=== PATIENT | female | born 1975 | race Caucasian/White ===

== ENCOUNTER 2020-09-26 08:17 | Outpatient (CLI) | payer OTHER, SELFPAY ==
--- NOTE | ~2020-09-26 | MM_ITS ---
EXAMINATION: MM screening mimi BI w vlad HISTORY: Screening mammogram TECHNIQUE: Craniocaudal and mediolateral oblique 3-D tomosynthesis images were obtained and synthetic 2-D images were generated. CAD analysis was submitted and interpreted. COMPARISON: 09/12/2019, 08/26/2018, 08/21/2017 bilateral digital screening mammogram examinations BREAST PARENCHYMAL COMPOSITION: There are scattered areas of fibroglandular density. FINDINGS: There is no evidence of suspicious mass, calcification, or architectural distortion to sugg est malignancy in either breast. There has been no suspicious interval change. IMPRESSION: 1. No mammographic evidence of malignancy. 2. Recommend routine screening mammography in one year. BI-RADS Category 1: Negative Reviewed, dictated and finalized at location A. UFLAGE SPECIALIST
== END 2020-09-26 08:18 | disposition home or self-care (01) ==
LOC: ANHIMG 08:19
PROVIDERS: PCP Physician Assistant; Visit Provider Nurse Practitioner
DX: Z12.31 Encounter for screening mammogram for malignant neoplasm of breast (principal)
CPT/HCPCS: 77063; 77067

== ENCOUNTER 2021-11-07 13:45 | Outpatient (CLI) | payer OTHER, SELFPAY ==
--- NOTE | ~2021-11-07 | MM_ITS ---
EXAMINATION: MM diagnostic mimi BI w vlad HISTORY: Nonfocal left breast tenderness TECHNIQUE: Craniocaudal, mediolateral, and mediolateral oblique 3-D tomosynthesis images of the breas ts were performed and synthetic 2-D images were generated. CAD analysis was submitted and interpreted . COMPARISON: 09/26/2020, 09/12/2019, 08/26/2018 BREAST PARENCHYMAL COMPOSITION: The breasts are almost entirely fatty. FINDINGS: There is no evidence of suspicious mass, calcification, or architectural distortion in eit her breast to suggest malignancy. There has been no suspicious interval change. No mammographic corre late is identified for the patient's reported left breast pain. IMPRESSION: 1. No specific mammographic correlate is identified for the patient's reported left breast pain. Furt her evaluation at this time should be based on clinical assessment. Continued follow-up physical exam ination is recommended. 2. Recommend routine screening mammography in one year. BI-RADS Category 1: Negative Reviewed, dictated and finalized at location A. ECT MANAGEMENT ENGINEER IMPRESSION: 1. No specific mammographic correlate is identified for the patient's reported left breast pain. Further evaluation at this time should be based on clinical a ssessment. Continued follow-up physical examination is recommended. 2. Recommend routine screening mammography in one year. BI-RADS Category 1: Negative
== END 2021-11-07 13:46 | disposition home or self-care (01) ==
LOC: ANHIMG 13:47
PROVIDERS: PCP Physician Assistant; Visit Provider Nurse Practitioner
DX: N64.4 Mastodynia (principal)
CPT/HCPCS: 77062; 77066; G0279

== ENCOUNTER 2023-01-03 09:25 | Outpatient (CLI) | payer OTHER, SELFPAY ==
--- NOTE | ~2023-01-03 | MM_ITS ---
EXAMINATION: MM screening [facility] BI w vlad HISTORY: Screening mammogram TECHNIQUE: Craniocaudal and mediolateral oblique 3-D tomosynthesis images were obtained and synthetic 2-D images were generated. CAD analysis was submitted and interpreted. COMPARISON: 11/07/2021, 09/26/2020 BREAST PARENCHYMAL COMPOSITION: There are scattered areas of fibroglandular density. FINDINGS: No suspicious mass, calcification, or architectural distortion are identified in either jimena ast to suggest malignancy. There has been no suspicious interval change. IMPRESSION: 1. No mammographic evidence of malignancy. 2. Recommend routine screening mammography in one year. BI-RADS Category 1: Negative Reviewed, dictated and finalized at location A. TH AND FITNESS PROFESSOR
== END 2023-01-03 09:26 | disposition home or self-care (01) ==
LOC: ANHIMG 09:29
PROVIDERS: PCP Physician Assistant; Visit Provider Nurse Practitioner
DX: Z12.31 Encounter for screening mammogram for malignant neoplasm of breast (principal)
CPT/HCPCS: 77063; 77067

== ENCOUNTER 2023-08-30 11:09 | Emergency (ER) | payer OTHER, SELFPAY ==
--- NOTE | ~2023-08-30 | XR_ITS ---
XR lumbar spine 2-3V DATE: 08/30/2023 12:10 INDICATION: Fall. Low back pain. TECHNIQUE: AP, lateral, coned lateral lumbosacral views COMPARISON: None FINDINGS: There is mild loss of height and anterior wedging of L2 due to age indeterminate compressio n fracture. There is minimal dextroscoliosis of the lumbar spine. The lumbar vertebrae are normally aligned. No s pondylolisthesis. Lumbar levels interspaces appear relatively well preserved. The sacroiliac joints are intact. IMPRESSION: Mild L2 compression fracture of undetermined age Minimal lumbar dextroscoliosis Reviewed, dictated and finalized at location A.
[2023-08-30 11:23] VITALS: BP 141/70; PULSE 83; RESP 18; TEMP 36.3; O2SAT 98
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
== END 2023-08-30 12:44 | disposition home or self-care (01) ==
PROVIDERS: Emergency Provider Nurse Practitioner Family; PCP Physician Assistant
DX: S32.020A Wedge compression fracture of second lumbar vertebra, initial encounter for closed fracture (principal); W01.0XXA Fall on same level from slipping, tripping and stumbling without subsequent striking against object, initial encounter; E78.00 Pure hypercholesterolemia, unspecified; I10 Essential (primary) hypertension; E03.9 Hypothyroidism, unspecified
CPT/HCPCS: 72100; 99213; G0463

== ENCOUNTER 2023-10-02 16:20 | Outpatient (CLI) | payer OTHER, SELFPAY ==
--- NOTE | ~2023-10-02 | XR_ITS ---
EXAMINATION: XR sacrum coccyx min 2V DATE: 10/02/2023 16:42 INDICATION: Coccygeal pain TECHNIQUE: AP, angled AP and lateral views of the sacrum and coccyx were obtained. COMPARISON: None. FINDINGS: Sacral arches are intact with no evident sacral fracture. Mildly displaced fracture of the cephalad-m ost coccygeal segment on the lateral projection. There is mild bilateral hip and sacroiliac osteoarth ritis. There are few phleboliths in the pelvis. IMPRESSION: 1. Mildly displaced fracture at the cephalad-most coccygeal segment. Reviewed, dictated and finalized at location A. ANICAL LEAD
== END 2023-10-02 16:21 | disposition home or self-care (01) ==
PROVIDERS: PCP Physician Assistant; Visit Provider Physician Assistant
DX: S32.2XXA Fracture of coccyx, initial encounter for closed fracture (principal); X58.XXXA Exposure to other specified factors, initial encounter
CPT/HCPCS: 72220

== ENCOUNTER 2023-12-06 09:25 | Emergency (ER) | payer OTHER, SELFPAY ==
[2023-12-06 09:50] VITALS: BP 140/80; PULSE 82; RESP 18; TEMP 36.6; O2SAT 95
--- NOTE | 2023-12-06 10:35 | ED.GENADULT ---
HPI - General Adult General Chief complaint: Upper Respiratory Infection Stated complaint: covid + home test Time Seen by Provider: 12/06/23 10:35 Source: patient Mode of arrival: ambulatory Limitations: no limitations History of Present Illness HPI narrative: 48-year-old female reports to clinic today with symptoms of sore, scratchy throat, headache, runny nose, cough, and recent positive home a COVID test since Thursday. Patient reports not being able to smell or taste anything. Patient denies fevers, chills, body aches, diarrhea on Thursday but has not had diarrhea since. patient has not taken anything for her sore throat and states she isn't feeling better. Related Data Home Medications Medication Instructions Recorded Confirmed bupropion HCl 300 mg 24 hr tablet, mg PO 08/30/23 09/14/23 extended release buspirone 10 mg tablet mg 08/30/23 09/14/23 clonazepam 0.5 mg tablet mg 08/30/23 09/14/23 drospirenone 3 mg-ethinyl tablet 08/30/23 09/14/23 estradiol 0.02 mg tablet (Vestura (28)) duloxetine 60 mg capsule,delayed mg PO 08/30/23 09/14/23 release fenofibrate 160 mg tablet mg 08/30/23 09/14/23 levothyroxine 100 mcg tablet mcg 08/30/23 09/14/23 nystatin 100,000 unit/gram topical topical 08/30/23 09/14/23 cream propranolol 40 mg tablet mg 08/30/23 09/14/23 sumatriptan succinate 100 mg tablet mg PO 08/30/23 09/14/23 [id number] tablet 12/06/23 50 mg-325 mg-40 mg tablet Allergies Allergy/AdvReac Type Severity Reaction Status Date / Time meloxicam Allergy CANKER Verified 12/06/23 10:00 SORES MOXIFLOXACIN HCL Allergy SWELLING Uncoded 12/06/23 10:00 OF TONGUE Review of Systems Review of Systems: CONSTITUTIONAL: Denies fever, chills, or sweats. EYES: Denies visual changes, redness, or discharge. ENT: positive rhinorrhea, negative congestion, positive sore throat, and negative otalgia. positive loss of taste and smell. CARDIOVASCULAR: Denies chest pain, palpitations, or edema. RESPIRATORY: positive cough and negative dyspnea. GASTROINTESTINAL: Denies abdominal pain, nausea, vomiting, positive diarrhea on Thursday but not since. GENITOURINARY: Denies dysuria or hematuria. SKIN: Denies rash or itching. MUSCULOSKELETAL: Denies back pain, joint pain, or myalgia. NEUROLOGIC: positive headache, negative numbness, or weakness. PSYCHIATRIC: Denies anxiety or depression. [facility] Past Medical History Medical History Anxiety Depression Fracture of lumbar spine Fractured coccyx Hypercholesteremia Hypertension Hypothyroidism Migraines Sleep apnea Social History Social History Smoking status: Never smoker Lack of Transportation: No Lack of Food: Sometimes True Current Housing: I Have Housing Concerned About Future Housing: No Difficulty Paying Gas/Electric Bills: YES Difficulty Paying for Meds: No Currently Unemployed: No Education: High School Diploma/GED Difficulty w/ Childcare or Family Care: No Comments At the time of my signature I agree with nursing past medical history, surgical, social, and family history. There is no relevant family history pertinent to the presenting complaint. Exam Narrative: GENERAL: ill-appearing, well-nourished, and in no acute distress. HEAD: Normocephalic, atraumatic. EYES: PERRLA and EOMI. conjunctiva are free of erythema, edema, and drainage. ENT: Nares clear, positive clear rhinorrhea and epistaxis. Mucous membranes moist. turbinates of the bilateral nares are boggy and edematous. posterior oropharynx has erythema, tonsils +2 without exudate. NECK: Supple. No lymphadenopathy CHEST: Clear to auscultation. No respiratory distress. HEART: Regular rate and rhythm. No murmur heard. Normal peripheral pulses. ABDOMEN: Soft, nontender, nondistended, normal active bowel sounds. EXTREMITIES: Normal ra
== END 2023-12-06 11:02 | disposition home or self-care (01) ==
PROVIDERS: Emergency Provider Nurse Practitioner Family; PCP Physician Assistant
DX: U07.1 COVID-19 (principal); E78.00 Pure hypercholesterolemia, unspecified; I10 Essential (primary) hypertension; E03.9 Hypothyroidism, unspecified
CPT/HCPCS: 99213; G0463

== ENCOUNTER 2024-01-12 10:51 | Outpatient (CLI) | payer OTHER, SELFPAY ==
--- NOTE | ~2024-01-12 | MR_ITS ---
EXAMINATION: MR brain/brain stem wo con DATE: 01/12/2024 11:36 INDICATION: Intractable chronic migraine without aura and without status migrainosus. TECHNIQUE: Magnetic resonance imaging (MRI) of the brain and brainstem was performed without intraven ous contrast. COMPARISON: Brain MRI 06/20/2009 FINDINGS: There is no intracranial hemorrhage, acute infarction, or abnormal intracranial mass lesion . There are scattered areas of nonspecific increased T2-weighted signal intensity in the cerebral whi te matter. The ventricles are normal in size. There are likely changes of ocular lens replacement bradley geries. The mastoid air cells are normal. There is mild mucosal thickening in left maxillary sinus. IMPRESSION: 1. Mild nonspecific cerebral white matter disease, which likely represents chronic small vessel ische estrella disease. Reviewed, dictated and finalized at location A. IMPRESSION: 1. 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
== END 2024-01-12 10:52 | disposition home or self-care (01) ==
LOC: ANHIMG 10:53
PROVIDERS: PCP Physician Assistant
DX: G43.719 Chronic migraine without aura, intractable, without status migrainosus (principal); F80.81 Childhood onset fluency disorder; R90.82 White matter disease, unspecified
CPT/HCPCS: 70551

== ENCOUNTER 2024-03-22 16:32 | Outpatient (CLI) | payer OTHER, SELFPAY ==
--- NOTE | ~2024-03-22 | MM_ITS ---
EXAMINATION: MM screening mimi BI w vlad HISTORY: Screening TECHNIQUE: Craniocaudal and mediolateral oblique 3-D tomosynthesis images were obtained and synthetic 2-D images were generated. CAD analysis was submitted and interpreted. COMPARISON: Comparison to multiple prior studies sequentially, with oldest reviewed study dated 08/03. BREAST PARENCHYMAL COMPOSITION: The breasts are almost entirely fatty. FINDINGS: There is no evidence of suspicious mass, calcification, or architectural distortion to sugg est malignancy in either breast. There has been no suspicious interval change. IMPRESSION: 1. No mammographic evidence of malignancy. 2. Recommend routine screening mammography in one year. BI-RADS Category 1: Negative Reviewed, dictated and finalized at location A.
== END 2024-03-22 16:33 | disposition home or self-care (01) ==
LOC: ANHIMG 16:33
PROVIDERS: PCP Physician Assistant; Visit Provider Obstetrics & Gynecology Gynecology
DX: Z12.31 Encounter for screening mammogram for malignant neoplasm of breast (principal)
CPT/HCPCS: 77063; 77067

== ENCOUNTER 2024-09-07 09:29 | Outpatient (CLI) | payer OTHER, SELFPAY ==
[2024-09-26 13:35] VITALS: BMI 37.8
--- NOTE | 2024-09-26 13:35 | WPDSLEEPSTUD ---
Sleep Study Date of Study: 09/07/24 Ordering Provider: June Walker, VLADIMIR Interpreting Physician: Gogo Johnson DO Sleep Study Type: Split Polysomnogram Height: 1.57 m Weight: 93.894 kg Body Mass Index: 37.8 Neck Circumference (inches): 17 [place]: 9 Reason for Sleep Study Previously diagnosed sleep apnea. Her CPAP broke 5 years ago and hasn't had once since. Sleep History The patient is a 49-year-old female with previously diagnosed sleep apnea that had a sleep study ordered by the pulmonary group for evaluation of sleep apnea. The patient denies awakening from sleep short of breath. She frequently awakens at night with heartburn, belching or cough. She frequently snores and 8 is frequently loud enough that others complain. She occasionally has trouble sleeping when she has a cold. She denies waking up gasping for air throughout the night. She denies having breathing problems at night observed by herself or others. She occasionally sweats excessively at night. She denies having heart palpitations or irregular heartbeats during the night. She constantly falls asleep during the day but never while driving. She denies cataplexy and hypnagogic/ hypnopompic hallucinations. She denies having trouble at school or work due to sleepiness. She occasionally feels unable to move while waking up or falling asleep. She occasionally feels afraid of going to sleep. She occasionally has nightmares. She frequently remembers her dreams. She occasionally has thoughts racing through her mind. She frequently feels sad or depressed. She constantly has anxiety. She occasionally has muscular tension. She denies noticing parts of her body jerk. She denies kicking during the night. She denies having crawling and aching feelings in her legs and denies having leg pain during the night. She denies grinding her teeth during sleep and denies awakening with morning jaw pain. She is occasionally bothered by pain during the day and occasionally awakened by pain during the night. She occasionally wakes up feeling stiff in the morning. She occasionally wakes up with sore or achy muscles. She occasionally wakes up with pain in the neck, spine or other joints. She goes to bed between 830-9 p.m. on weekdays and at 10:00 p.m. on the weekends. It takes her 30 minutes to fall asleep. She wakes up 3-4 times throughout the night to urinate and is able to fall back asleep immediately. She wakes up at 4:45 a.m. on weekdays and at noon on the weekends. She will stay in bed for most of the day if she is not working. She currently lives with her and 2 children. She works a split shift. She denies consuming any caffeinated beverages within 2 hours of bedtime. She denies engaging in physical exercise before bedtime. She denies reading watching television before falling asleep. She will take naps in afternoon or the evening but they are not refreshing. She consumes 1-2 caffeinated beverages per day. She denies tobacco, alcohol and recreational drug use. [facility] Past Medical History Medical History Anxiety Depression Fracture of lumbar spine Fractured coccyx Hypercholesteremia Hypertension Hypothyroidism Migraines Sleep apnea Social History Social History Smoking status: Never smoker Lack of Transportation: No Lack of Food: Sometimes True Current Housing: I Have Housing Concerned About Future Housing: No Difficulty Paying Gas/Electric Bills: YES Difficulty Paying for Meds: No Currently Unemployed: No Education: High School Diploma/GED Difficulty w/ Childcare or Family Care: No Medications Home Medications Medication Instructions Recorded Confirmed Type bupropion HCl 300 mg 24 hr tablet, mg PO 08/30/23 09/14/23 History extended release buspirone 10 mg tablet mg 08/30/23 09/14/23 History clonazepam 0.5 mg tablet mg 08/30/23 09/14/23 History drospirenone 3 mg-ethinyl tablet 08/30/23 09/14/23 History estradiol 0.02 mg tablet (Vestura (28)) duloxetine 60 mg capsule,delayed mg PO 08/30/23 09/14/23 History release fenofibrate 160 mg tablet mg 08/30/23 09/14/23 History levothyroxine 100 mcg tablet mcg 08/30/23 09/14/23 History nystatin 100,000 unit/gram topical topical 08/30/23 09/14/23 History cream propranolol 40 mg tablet mg 08/30/23 09/14/23 History sumatriptan succinate 100 mg tablet mg PO 08/30/23 09/14/23 History rwcuvpejxp-yzzggqpkgkcpz-cqrerani tablet 12/06/23 History 50 mg-325 mg-40 mg tablet nirmatrelvir 300 mg (150 mg See Rx Instructions PO .COMPLEX 12/06/23 Rx x2)-ritonavir 100 mg tablet,dose #30 ea pack (Paxlovid) Sleep Procedure A full night split study using the [employer] multi-channel system recorded the standard physiologic parameters including EEG, EOG, submentalis EMG, anterior tibialis EMG, EKG, body position, nasal and oral airflow using nasal pressure sensor and thermistor.? Respiratory parameters of chest and abdominal movements were recorded with Respiratory Inductance Plethysmography belts. Oxygen saturation was recorded by pulse oximetry. Video monitoring was also performed. Sleep stages, periodic limb movements, and EEG arousals were scored in 30 second epochs according to the criteria of the AASM Scoring Manual. The Apnea-Hypopnea Index was calculated using CMS guidelines for definition of hypopnea with 4% O2 desaturations while scoring respiratory events. Sleep Architecture During the diagnostic portion of the study, the total recording time was 188.1 minutes. The total sleep time was 142.0 minutes. Sleep latency was 22.6 minutes.? REM sleep was not achieved during this portion of the study. Sleep Efficiency was 75.5%. The patient had 25 awakenings for an awakening index of 10.6. Wake after sleep onset time was 23.5 minutes. The patient spent 29.0 minutes, 20.4% of total sleep time in Stage N1. The patient spent 113.0 minutes, 79.6% in Stage N2. The patient spent 0.0 minutes, 0.0% in Stage N3. The patient spent 0.0 minutes, 0.0% in Stage REM sleep. At 12:11:59 AM the patient was placed on PAP treatment and was titrated at pressures ranging from 5 cm H20 up to 9 cm H20. During the treatment portion of the study, the total recording time was 259.0 minutes.? The total sleep time was 147.0 minutes. Sleep latency was 39.5 minutes. REM latency was 150.5 minutes. Sleep Efficiency was 56.8%. Wake after Sleep Onset time was 72.5 minutes. The patient spent 31.0 minutes, 21.1% of total sleep time in Stage N1. The patient spent 107.0 minutes, 72.8% in Stage N2. The patient spent 0.0 minutes, 0.0% in Stage N3. The patient spent 9.0 minutes, 6.1% in Stage REM. Respiratory Analysis During the diagnostic portion of the study, the patient had 38 hypopneas and 2 obstructive apneas for an overall Apnea Hypopnea Index of 16.9 events per hour. The REM Apnea Hypopnea Index was 0. The NREM Apnea Hypopnea Index was 16.9. The patient had a Central Apnea Hypopnea Index of 0. There was no evidence of Marlo-Maria Respirations. During the treatment portion of the study, the patient had 7 hypopneas, 2 obstructive apneas and 1 mixed apnea for an overall Apnea Hypopnea Index of 4.1 events per hour. The REM Apnea Hypopnea Index was 0. The NREM Apnea Hypopnea Index was 4.3. The patient had a Central Apnea Hypopnea Index of 0. There was no evidence of Marlo-Maria Respirations. The patient was started on CPAP 5 cm H2O and titrated to CPAP 9 cm H2O due to obstructive apneas and hypopneas. The patient was able to fall asleep starting on CPAP 5 cm H2O. The patient was able to achieve REM starting on CPAP 9 cm H2O. The patient was able to achieve a residual AHI less than 5 with both NREM and REM sleep in the supine position on the final pressure setting. On CPAP 9 cm H2O, the patient spent 66.5 minutes in NREM and 9 minutes in REM with 1 obstructive apnea and 1 hypopnea, resulting in an AHI of 1.6. The patient had a sleep efficiency of 80.3% on this pressure setting. Arousals During the diagnostic portion of the study, there were a total of 93 arousals for an arousal index of 39.3.? There were 19 respiratory arousals for an index of 8.0. There were 13 periodic limb movement arousals for an index of 5.5.? There were 10 isolated limb movement arousals for an index of 4.2. There were 51 spontaneous arousals for an index of 21.5. During the treatment portion of the study, there were a total of 70 arousals for an index of 28.6.? There were 4 respiratory arousals for an index of 1.6. There were 1 periodic limb movement arousals for an index of 0.4.? There were 11 isolated limb movement arousals for an index of 4.5. There were 54 spontaneous arousals for an index of 22.0. Periodic Limb Movements During the diagnostic portion of the study, the patient had 13 isolated limb movements with an index of 5.5. The patient had 60 periodic limb movements with an index of 25.4. The patient had a total of 73 limb movements with a total limb movement index of 30.8. During the treatment portion of the study, the patient had 12 isolated limb movements with an index of 4.9. The patient had 19 periodic limb movements with an index of 7.8. The patient had a total of 31 limb movements with a total limb movement index of 12.7. Oximetry Data During the diagnostic portion of the study, the patient had an average oxygen saturation of 93.6% in wake with a minimum oxygen saturation of 90% and a maximum oxygen saturation of 96%. The patient had an average oxygen saturation of 93.2% in sleep with a minimum oxygen saturation of 87.0% and a maximum oxygen saturation of 96.0%. The patient had 79 oxygen desaturations resulting in an Oxygen Desaturation Index of 33.4. The patient spent 0.6 minutes, 0.3% of total sleep time with an oxygen saturation less than 88%. During the treatment portion of the study, the patient had an average oxygen saturation of 94.8% in wake with a minimum oxygen saturation of 84.0% and a maximum oxygen saturation of 99.0%. The patient had an average oxygen saturation of 95.3% in sleep with a minimum oxygen saturation of 90.0% and a maximum oxygen saturation of 99.0%. The patient had 20 oxygen desaturations resulting in an Oxygen Desaturation Index of 8.2. The patient spent 0.3 minutes, 0.1% of total sleep time with an oxygen saturation less than 88%. Snoring Profile Mild snoring was present in the baseline portion of the study. The snoring resolved once the patient was titrated to 7 cm H2O. Cardiac Profile The EKG lead showed normal sinus rhythm. No arrhythmias or PVCs were seen. During the diagnostic portion of the study, the average pulse rate was 75.5 bpm.? The minimum pulse rate was 69.0 bpm. The maximum pulse rate was 85.0 bpm. During the treatment portion of the study, the average pulse rate was 74.2 bpm.? The minimum pulse rate was 67.0 bpm. The maximum pulse rate was 88.0 bpm. EEG Profile No signs of seizure activity seen. Assessment and Plan Assessment and Plan (1) DEB (obstructive sleep apnea): Code(s): G47.33 - Obstructive sleep apnea (adult) (pediatric) Status: Acute Assessment and Plan: In the baseline portion of the study, the patient had an overall AHI of 16.9 with desaturation down to 87%. This is consistent with moderate sleep apnea. The patient was started on CPAP 5 cm H2O and titrated to CPAP 9 cm H2O due to obstructive apneas and hypopneas. The patient's sleep apnea resolved on the final pressure. I recommend that the patient be prescribed CPAP 9 cm H2O, size small Resmed N30i mask, CPAP filters/tubing and heated humidity. This should be used with all episodes of sleep.? Compliance should be reviewed within 31-90 days of starting therapy for usage greater than 4 hours per night greater than 70% of the nights. The patient should be asked about symptoms such as?excessive daytime sleepiness, quality of sleep, decreased nocturia, increased?mental functioning such as memory, mood, and concentration. Data The data obtained during this sleep study is adequate for interpretation. Certification This sleep study has been reviewed by a board certified sleep medicine physician.
== END 2024-09-08 05:06 | disposition home or self-care (01) ==
PROVIDERS: PCP Physician Assistant; Visit Provider Physician Assistant
DX: G47.33 Obstructive sleep apnea (adult) (pediatric) (principal)
CPT/HCPCS: 95811

== ENCOUNTER 2024-11-14 14:48 | Outpatient (CLI) | payer OTHER, SELFPAY ==
--- NOTE | ~2024-11-14 | DEXA_ITS ---
Bone Density Report Name: RAFAEL COLEMAN Age: 49 Sex: Female Ethnicity: White Date of : 1975 Indication: postmenopausal; screening for osteoporosis; Referring Provider: ROMEO, ARTEM Study: Bone densitometry was performed. Exam Date: November 14, 2024 Accession number: [id number] Bone Density: Region BMD T-score Z-score Classification AP Spine(L1-L4) 0.853 -1.8 -1.0 Osteopenia Femoral Neck (Left) 0.543 -2.8 -2.0 Osteoporosis Total Hip (Left) 0.926 -0.1 0.4 Normal Femoral Neck (Right) 0.679 -1.5 -0.8 Osteopenia Total Hip (Right) 0.943 0.0 0.5 Normal Total Hip Mean 0.934 -0.1 0.5 Normal World Health Organization criteria for BMD impression classify patients as: Normal (T-score at or above -1.0), Osteopenia (T-score between -1.0 and -2.5), or Osteoporosis (T-score at or below -2.5). 10-year Fracture Risk: FRAX not reported because: Some T-score for Spine Total or Hip Total or Femoral Neck at or below -2.5 Clinical Information Provided by Patient: Patient maximum height was 62.0 Menopause Age: 49 No regular weight bearing exercise Does not regularly consume dairy products Drinks caffeinated beverages Onset of menses at age 11 Number of children 0 Impression: The patient has osteoporosis, based on the Left Femoral Neck T-score. Discussion: HIGH RISK OF FRACTURE. BONE DENSITY IS UNDESIRABLY LOW AT ONE OR MORE SKELETAL SITES, CONSISTENT WITH OSTEOPOROSIS. ALSO, BONE DENSITY IS LOWER THAN EXPECTED FOR AGE AND SEX AT ONE OR MORE SKELETAL SITES; RECOMMEND A DILIGENT SEARCH FOR SECONDARY CAUSES OF BONE LOSS. This patient's lowest T-score meets the World Health Organization's (WHO) criteria for osteoporosis at one or more sites (T-score -2.5 or below). In untreated patients, the risk of osteoporotic fracture increases approximately two-fold for each 1.0 SD decrease in T-score. Low bone density is not the only risk factor for fracture; also consider factors such as patient's age, frailty or poor health, risk of falling, risk of injury, previous osteoporotic fracture, family history of osteoporosis, cigarette smoking, low body weight, etc. Not everyone with low bone mineral density has osteoporosis; osteomalacia and other metabolic bone disorders should also be considered. Patients who have osteoporosis should be evaluated for specific diseases and conditions (secondary causes) that may cause or contribute to bone loss. The [place] [employer]ocrinologists (AACE) and National Osteoporosis Foundation (NOF) recommend pharmacologic intervention for all postmenopausal women whose T-score is in this range. Also, this patient's bone mineral density is below the range considered normal for healthy age-, sex-, and race-matched controls at least one site (Z-score -2.0 or below). This warrants careful evaluation for diseases and conditions that may contribute to accelerated bone loss. The patient should follow a healthful lifestyle (good nutrition with adequate calcium and vitamin D, and appropriate weight-bearing exercise). Follow-Up: Consider a repeat BMD and Vertebral Fracture Assessment (VFA) exam in 2 years or sooner if medically necessary, to reassess this patient's status. Reported by: KEMI on 11/14/2024 3:20:00 PM. Reviewed, dictated and finalized at location ABonita DUNN
== END 2024-11-14 14:49 | disposition home or self-care (01) ==
LOC: ANHIMG 14:50
PROVIDERS: PCP Physician Assistant; Visit Provider Physician Assistant
DX: Z78.0 Asymptomatic menopausal state (principal); M85.88 Other specified disorders of bone density and structure, other site; M81.0 Age-related osteoporosis without current pathological fracture; M85.851 Other specified disorders of bone density and structure, right thigh
CPT/HCPCS: 77080

== ENCOUNTER 2025-05-13 18:54 | Emergency (ER) | payer OTHER, SELFPAY ==
--- NOTE | ~2025-05-13 | XR_ITS ---
XR ankle RT min 3V Ordering provider: Veronique Dang NP History: . fall today/lateral pain . Comparison: None. FINDINGS: BONES: No acute fracture or dislocation. JOINT SPACES: Normal. SOFT TISSUES: Normal. Calcaneal spur. IMPRESSION: No acute osseous abnormality of the right ankle. Reviewed, dictated and finalized at location A.
--- OUTSIDE RECORDS SUMMARY | 2025-05-13 18:57 | XMS_ITS | Clinical Summary ---
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 Role Phone Unavailable Primary Care Provider Unavailabl e Social History Tobacco Use Types Packs/Day Years Used Date Smoking Tobacco: Never Assessed Comments Unknown Sex and Gender Information Value Date Recorded Sex Assigned at Not on file Legal Sex Female 4:44 PM CDT Gender Identity Not on file Sexual Orientation Not on file Plan of Treatment Health Maintenance Due Date Last Done Comments Cervical Cancer Screening Pa p Smear (Age 30 to 64) Every 3 Years 1974 Colorectal Cancer Screening Colonoscopy (10 Years) 1974 Annual Physical 1977 Hepatitis C 1992 DTaP, Tdap and Td Vaccines ( 1 - Tdap) 1993 Hepatitis B Vaccines (1 of 3 - 19+ 3-dose series) 1993 Cervical Cancer Screening Pa p with HPV Testing (Age 30 to 64) Every 5 Years 2004 Cervical Cancer Screening with HPV 2004 Mammogram Screening 2014 Pneumococcal Vaccine: 50+ Ye ars (1 of 1 - PCV) 2024 Zoster Vaccines (1 of 2) 2024 COVID-19 Vaccine ( - 2023-2 5 season) 2024 Meningococcal B Vaccine Aged Out No l onger eligible based on patient's age to complete this topic Meningococcal Vaccine Aged Out No siria elaine eligible based on patient's age to complete this topic RSV Immunizations Under 20 Months Aged Out No longer eligible based on patient's age to complete this topic
--- OUTSIDE RECORDS SUMMARY | 2025-05-13 18:57 | XMS_ITS | Referral Summary ---
Author Organization [facility] Address [address] [place] [address] Care Team Providers Care Junior Accountant Name Role Phone Tigre Sy MD Primary Care Provider [phone] Encounters Date Type Department Care Team Description 03/13/2025 Telephone [facility] [address] [place] [address] [address] [place] [address] Cherelle Funez NP 03/09/2025 1:00 PM CDT [facility] [address] [facility] [address] [place] [address] Katelynn Hurd MD Intractable chronic migraine without aura and without status migrainosus from Last 3 Months Allergies Active Allergy Reactions Criticality Noted Date Comments Meloxicam Moxifloxacin Medications selenium sulfide 2.5 % lotion WET HAIR AND LATHER INTO SCALP UP TO ONCE DAILY. 01/12/20 20 Active Gianvi, 28, 3-0.02 mg per tablet 02/02/20 20 Active buPROPion XL (WELLBUTRIN XL) 300 mg 24 hr tabletIndications: Generalized anxiety disorder,Mild episode of recurrent major depressive disorder Take 1 tablet (300 mg total) by mouth every morning 90 tablet 1 02/06/20 20 Active clonazePAM (KlonoPIN) 0.5 mg tabletIndications: Generalized anxiety disorder Take 1 tablet (0.5 mg total) by mouth daily 90 tablet 1 02/06/20 20 Active fenofibrate (TRIGLIDE) 160 mg tabletIndications: Hyperlipidemia, unspecified hyperlipidemia type Take 1 tablet (160 mg total) by mouth daily 90 tablet 1 02/06/20 20 Active levothyroxine (SYNTHROID) 100 mcg tabletIndications: Acquired hypothyroidism Take 1 tablet (100 mcg total) by mouth daily 90 tablet 1 02/06/20 20 Active propranoloL (INDERAL) 40 mg tabletIndications: Chronic migraine without aura without status migrainosus, not intractable Take 1 tablet (40 mg total) by mouth 2 (two) times a day 180 tablet 1 02/19/[address] (CYMBALTA) 60 mg capsuleIndications :Generalized anxiety disorder,Mild episode of recurrent major depressive disorder TAKE 1 CAPSULE BY MOUTH EVERY DAY 90 capsule 03/25/20 21 Active onabotulinumtoxin A (Botox) 100 unit recon soln Inject 155 Units into the muscle as instructed every 3 (three) months 11/13/19 24 Active oxyBUTYnin (DITROPAN) 5 mg tablet Take 0.5 tablets (2.5 mg total) by mouth 2 (two) times a day 01/02/20 24 Active butalbital-acetami nophen-caffeine (ESGIC) 50-325-40 mg per tablet Take 1 tablet by mouth every 6 (six) hours as needed for headaches (No additional Tylenol or acetaminophen with this medication.) 8 tablet 3 07/07/20 24 Active fluconazole (DIFLUCAN) 150 mg tabletIndications: Intractable chronic migraine without aura and without status migrainosus Take 1 tablet (150 mg total) by mouth every other day 05/26/20 24 Active SUMAtriptan (IMITREX) 50 mg tabletIndications: Intractable chronic migraine without aura and without status migrainosus Take 1 tablet (50 mg total) by mouth as needed for migraine Can repeat in 2 hours if needed. Maximum of 2 tablets in 24 hours. 9 tablet 11 09/02/20 24 Active alendronate (FOSAMAX) 70 mg tablet Take 1 tablet (70 mg total) by mouth once a week 12/05/19 25 Active busPIRone (BUSPAR) 10 mg tablet Take 1 tablet (10 mg total) by mouth 2 (two) times a day 11/30/19 25 Active Active Problems Problem Noted Date Diagnosed Date Upper respiratory infection 02/17/2024 Pain in the coccyx 10/01/2023 Compression fracture of lumbar vertebra 09/02/20 23 Aphthous ulcer of mouth 10/23/2022 Herpes labialis 10/23/2022 Nonspecific syndrome suggestive of viral illness 10/20/2022 Sore throat 10/20/2022 Candidiasis of vagina 07/14/2022 Cough 02/24/2022 Hyperglycemia 02/20/2022 Chronic migraine without aur a without status migrainosus, not intractable 02/20/2022 Overview (02/17/2024): Please see my note from 02/17/2024 for a full headache history Assessment & Plan (02/17/2024 12:55 PM CDT): Assessment Chronic migraine without aura The patient has longstanding history of chronic migraine without aura. She has had a very good therapeutic response to Botox for chronic migraine and wishes to have this done here. Her last treatment was on 11/13/2023. She is due for her next treatment. Plan Continue Botox for chronic migraine. We have given her samples of Ubrelvy in the past and she has had benefit from this in terms of acute treatment for migraine. We will try to get this approved for her in the future. Overactive bladder 02/20/2022 Skin lesion 02/20/2022 Cobalamin deficiency 02/20/2022 Folic acid deficiency 02/20/2022 Candidiasis of skin 12/09/2021 Acute maxillary sinusitis 06/10/2021 Anterior knee pain 06/10/2021 Anxiety 06/10/2021 Atypical facial pain 06/10/2021 Benign essential hypertension 06/10/2021 Carpal tunnel syndrome 06/10/2021 Deviated nasal septum 06/10/2021 Hypothyroidism 06/10/2021 Lateral epicondylitis 06/10/2021 Loss of hair 06/10/2021 Major depressive disorder 06/10/2021 Melanocytic nevus 06/10/2021 Mixed hyperlipidemia 06/10/2021 Obstructive sleep apnea syndrome 06/10/2021 Pure hyperglyceridemia 06/10/2021 Tenderness over maxillary sinus 06/10/2021 Temporomandibular joint disorder 06/10/2021 Pain in limb 03/19/2020 Shortness of breath 04/30/2017 Tachycardia 04/30/2017 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 Melanocytic nevi of trunk 03/23/2017 Other seborrheic dermatitis 06/17/2016 Monocular diplopia 04/02/2016 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 Never 03/09/2025 Q2: How many drinks containi ng alcohol do you have on a typical day when you are drinking? Patient does not drink Q3: How often do you have si x or more drinks on one occasion? 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 Gender Identity Female 02/06/2020 9:55 AM CDT Sexual Orientation Straight 02/06/2020 9: 55 AM CDT Last Filed Vital Signs Vital Sign Reading Time Taken Comments Blood Pressure 136/76 03/09/2025 1:06 PM CDT Pulse 79 03/09/2025 1:06 PM CDT Temperature 36.7 C (98.1 F) 10/21/2013 12:15 PM OUTBOARD MOTORS EXPERIMENTAL MECHANIC Respiratory Rate 18 09/02/2024 11:37 AM CDT Oxygen Saturation 95% 03/09/2025 1:06 PM CDT Inhaled Oxygen Concentration - - Weight 95.7 kg (211 lb) 03/09/2025 1:06 PM CDT Height 157.5 cm (5' 2) 03/09/2025 1:06 PM CDT Body Mass Index 38.59 03/09/2025 1:06 PM CDT Plan of Treatment Not on file Procedures Procedure Name Priority Date/Time Associated Diagnosis Comments BOTOX INJECTION Routine 03/09/2025 1:00 PM CDT Intractable chronic migraine without aura and without status migrainosus from Last 3 Months Results * Botox Injection (03/09/2025 1:00 PM CDT) Narrative Michelle Toro - 03/09/2025 1:00 PM CDT Michelle Toro 03/10/2025 8:23 AM Botox Injection Performed by: Katelynn Hurd MD Authorized by: Katelynn Hurd MD [place] Protocol: Procedure Details - Botox Injection: Procedure Details: See Botox flow sheet for details on injection sites and amounts. us Katelynn Hurd MD IN CLINIC/BEDSIDE ORDERAB LES Final Result from Last 3 Months Insurance [facility] Care Teams Junior Accountant Relationship Specialty Start Date End Date Tigre Sy MD PCP - General Family Medicine 02/09/20
--- OUTSIDE RECORDS SUMMARY | 2025-05-13 18:57 | XMS_ITS | Clinical Summary ---
Author Organization [facility] Address [address] [facility] [place] [address] Care Team Providers Care Green Feed Attendant Name Role Phone June Vo Primary Care Pr ovider Source Comments [facility] [employer],non-owned Affiliates and Associated Physician Practices is amultiple site organization consisting of ambulatory clinics and hospital sitesin [place], [place], [place] and [place]. This disclosure is being madepursuant to the Care Everywhere program and may not contain all information available regarding this patient. Last updated 18.[facility] [employer] Allergies Active Allergy Reactions Criticality Noted Date Comments Meloxicam Other Low 09/18/2015 Canker sores Moxifloxacin Anaphylaxis High 09/18/2015 Medications * Be aware that medications may not be up to date on this document. Alwaysverify current medications with the patient. buPROPion XL 24hr (WELLBUTRIN-XL) 300 MG tablet Take 1 (one) tablet by mouth once daily 8 Active DULoxetine (CYMBALTA) 60 MG capsule Take 1 (one) capsule by mouth once daily 8 Active fenofibrate (LOFIBRA) 160 MG tablet Take 1 (one) tablet by mouth once daily 8 Active drospirenone-et hinyl estradiol-levom efolate (BEYAZ) 3-0.02-0.451 MG tablet 5 Active levothyroxine (SYNTHROID) 100 MCG tablet Take 1 (one) tablet by mouth once daily 11 8 Active propranolol (INDERAL) 40 MG tabletIndicatio ns:Intractable chronic migraine without aura and without status migrainosus Take 1 tablet by mouth 2 times daily 180 tablet 3 0 Active selenium sulfide (SELSUN) 2.5 % lotion WET HAIR AND LATHER INTO SCALP UP TO ONCE DAILY. 120 mL 11 0 Active busPIRone (BUSPAR) 10 MG tablet Take 1 (one) tablet by mouth 2 times daily Active vitamin D, ergocalciferol, (Drisdol) 1.25 MG (66767 UT) capsule 2 Active folic acid (Folvite) 1 MG tablet 2 Active gabapentin (Neurontin) 300 MG capsuleIndicati ons:Rash and other nonspecific skin eruption Take 1 (one) capsule by mouth 3 times daily 90 capsule 2 2 Active Additional Information Patient not taking.Reported on 11/13/2023 diazePAM (Valium) 5 MG tablet Take 1 (one) tablet by mouth as needed (30 min. prior to MRI, can repeat X1 if needed, have someone drive patient home afterwards.) 2 tablet 3 Active onabotulinumtox in A (BOTOX) 100 units injectionIndica tions:Migraine Inject 155 (one hundred fifty five) Units into muscle Every 90 days Reasons: Migraine Headache 2 Each 1 4 Active SUMAtriptan (Imitrex) 100 MG tabletIndicatio ns:Intractable chronic migraine without aura and without status migrainosus Take 1 (one) tablet by mouth as needed for Migraine (take at onset of headache, can repeat in 2 hours, max of 2 per day) 9 tablet 11 4 Active butalbital-acet aminophen-caffe ine (Fioricet) 50-325-40 MG tabletIndicatio ns:Intractable chronic migraine without aura and without status migrainosus Take 1 (one) tablet by mouth every 6 hours as needed for Headache (no additional tylenol or acetmenophen with this medicaiton) 15 tablet 5 4 Active Active Problems Problem Noted Date Diagnosed Date Pain in the coccyx 10/01/2023 11/13/2023 Compression fracture of lumbar vertebra 09/02/20 23 11/13/2023 Aphthous ulcer of mouth 10/23/2022 05/08/20 Herpes labialis 10/23/2022 05/08/2023 Nonspecific syndrome suggestive of viral illness 10/20/2022 05/08/2023 Sore throat 10/20/2022 05/08/2023 Candidiasis of vagina 07/14/2022 Hyperglycemia 02/20/2022 Migraine 02/20/2022 Overactive bladder 02/20/2022 Encounter for long-term (current) use of insulin 12/26/2021 Candidiasis of skin 12/10/2021 Vitamin D deficiency 11/29/2021 Acute maxillary sinusitis 06/10/2021 Anterior knee pain 06/10/2021 Anxiety 06/10/2021 Atypical facial pain 06/10/2021 Benign essential hypertension 06/10/2021 Carpal tunnel syndrome 06/10/2021 Closed fracture of distal phalanx of toe 021 Deviated nasal septum 06/10/2021 Hypothyroidism 06/10/2021 Lateral epicondylitis 06/10/2021 Loss of hair 06/10/2021 Major depressive disorder, single episode, moder ate 06/10/2021 Melanocytic nevus 06/10/2021 Mixed hyperlipidemia 06/10/2021 Obstructive sleep apnea syndrome 06/10/2021 Pure hyperglyceridemia 06/10/2021 Temporomandibular joint disorder 06/10/2021 Tenderness over frontal sinus 06/10/2021 Vitamin B12 deficiency (non anemic) 06/10/2021 Pain in limb 03/19/2020 Shortness of breath 04/30/2017 Tachycardia 04/30/2017 Melanocytic nevi of trunk 03/23/2017 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 (F LUZONE; FLULAVAL; FLUARIX; AFLURIA QUADRIVALENT; 6MO+), 0.5 ML (IIV4) 08/15/2022,08/16/2021,08/13/2020,2018,08/17/2018,08/05/2016,08/07/2015 TDAP (7yrs+) 07/20/2014 Family History Medical History Relation Name Comments Hypertension Maternal Grandfather Allergy (Severe) Neg Hx CVA Neg Hx Cancer Neg Hx Cancer - Breast Neg Hx Cancer - Skin, Melanoma Neg Hx Cancer - Skin, Non Melanoma Neg Hx Eczema Neg Hx Hemophilia Neg Hx Psoriasis Neg Hx Rashes/Skin Problems Neg Hx Relation Name Status Comments Father Alive Maternal Grandfather Mother Alive Social History Tobacco Use Types Packs/Day Years Used Date Smoking Tobacco: Never Smokeless Tobacco: Never Tobacco Cessation:Counseling Given: No Alcohol Use Standard Drinks/Week Comments No 0 (1 standard drink = 0.6 oz pur e alcohol) Comments Unknown Sex and Gender Information Value Date Recorded Sex Assigned at Not on file Legal Sex Female 5:37 PM RECORD PRODUCER Gender Identity Not on file Sexual Orientation Not on file 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 Not on file Not on michael e Last Filed Vital Signs Vital Sign Reading Time Taken Comments Blood Pressure 114/79 11/13/2023 2:12 PM RECORD PRODUCER Pulse 72 11/13/2023 2:12 PM RECORD PRODUCER Temperature 36.3 C (97.4 F) 08/07/2023 1:21 PM CDT Respiratory Rate 22 11/13/2023 2:12 PM RECORD PRODUCER Oxygen Saturation 99% 11/13/2023 2:12 PM RECORD PRODUCER Inhaled Oxygen Concentration - - Weight 92.7 kg (204 lb 6.4 oz) 11/13/2023 2:12 P M RECORD PRODUCER Height 157.5 cm (5' 2) 08/07/2023 1:21 PM CDT Body Mass Index 37.39 08/07/2023 1:21 PM CDT Plan of Treatment Health Maintenance Due Date Last Done Comments COLON MONITORING 1974 COLONOSCOPY - COLON CA SCREENING 1974 CT COLONOGRAPHY - COLON CA SCREENING 1974 FIT - COLON CA SCREENING 1974 FLEX SIG - COLON CA SCREENING 1974 LIPID TESTING 1974 MAMMOGRAM 1974 HIV SCREENING 1989 HEPATITIS C SCREENING 04/06/1992 HEPATITIS B VACCINE (1 of 3 - 19+ 3-dose series) 1993 PAP with HPV 2004 SCREENING FOR DIABETES 12/21/2019 PNEUMOCOCCAL VACCINE 50+ (1 of 1 - PCV) 2024 ZOSTER VACCINE (1 of 2) 2024 COVID-19 VACCINE (1 - 2023- season) 2024 DTAP/TDAP/TD VACCINES (2 - Td or Tdap) 07/20/2024 07/20/2014 DEPRESSION SCREENING 11/02/2024 INFLUENZA VACCINE (#1) 2025 2, 08/02/2022, 08/16/2021, Additional history exists COLOGUARD (AGES 45-75) - COLON CA SCREENING 01/03/2026 01/03/2023 Colorectal Cancer Screening 01/03/2026 HIB VACCINE Aged Out No longer eligi ble based on patient's age to complete this topic HPV VACCINE Aged Out No longer eligi ble based on patient's age to complete this topic MENINGOCOCCAL (Group B) VACCINE SHARED DECISION-MAKING Aged Out No longer eligible based on patient's age to complete this topic MENINGOCOCCAL GROUPS A/C/Y/W VACCINE Aged Out No longer eligible based on patient's age to complete this topic Insurance [facility] [place] [address] [facility] [place] [address] [place] [address] [employer] [facility] [place] [address] [facility] [place] [address] [place] [address] [facility] [place] [address] [place] [address] [employer] [facility] [place] [address] Care Teams Green Feed Attendant Relationship Specialty Start Date End Date June Vo PA [address] [place] [address] [place] [address] PCP - General 10/04/15
--- OUTSIDE RECORDS SUMMARY | 2025-05-13 18:57 | XMS_ITS | Clinical Summary ---
Author Organization [facility] Address [address] [place] [id number] Care Team Providers Care Gericare Aide Name Role Phone Tigre Sy MD Primary Care Provider [phone] Allergies Active Allergy Reactions Criticality Noted Date [...] Neoplasm of uncertain behavior of skin 5 Encounters Date Type Department Care Team Description 03/13/2025 Telephone [facility] [address] [place] [address] [address] [place] [phone] Cherelle Funez NP 03/09/2025 1:00 PM CDT [facility] [address] [facility] [address] [place] [address] Katelynn Hurd MD Intractable chronic migraine without aura and without status migrainosus from Last 3 Months Surgical History Surgery Date Site/Laterality Comments CATARACT EXTRACTION, BILATERAL NEUROPLASTY / TRANSPOSITION MEDIAN NERVE AT CARPAL TUNNEL BILATERAL SINUS SURGERY Medical History Medical History Date Comments Thyroid disease Migraines Anxiety Depression Family History Relation Name Status Comments Father Alive Mother Alive Social History Tobacco Use Types [...] on file 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 Gender Identity Female 02/06/2020 9:55 AM CDT Sexual Orientation Straight 02/06/2020 9: 55 AM CDT Obstetrics History Last Filed Vital Signs Vital Sign Reading Time Taken Comments Blood Pressure 136/76 03/09/2025 1:06 PM CDT Pulse 79 03/09/2025 1:06 PM CDT Temperature 36.7 C (98.1 F) 10/21/2013 12:15 PM LUNCH COUNTER MANAGER Respiratory Rate 18 09/02/2024 11:37 AM CDT Oxygen Saturation 95% 03/09/2025 1:06 PM CDT Inhaled Oxygen Concentration - - Weight 95.7 kg (211 lb) 03/09/2025 1:06 PM CDT Height 157.5 cm (5' 2) 03/09/2025 1:06 PM CDT Body Mass Index 38.59 03/09/2025 1:06 PM CDT Plan of Treatment Health Maintenance Due Date Last Done Comments Breast Cancer Screening-Mammogram 1974 Cervical Cancer Screening 1974 Colon Cancer Screening-Colonoscopy 1974 Hepatitis C Screening 1974 Hepatitis B Screening 1992 Depression Screening 02/05/2021 02/06/2020, 02/06/20 20 Regular Well Visit/Exam 18-64 02/05/2021 02/06/2020 Zoster Vaccine (1 of 2) 2024 Covid-19 Vaccine (2023- season) 2024 08/02/2023, 07/18/2022, 11/27/2021, Additional history exists DTaP/Tdap/Td Vaccine (3 - Td or Tdap) 07/20/2024 07/20/2014, 07/20/2014 Influenza Vaccine (#1) 2025 3, 08/15/2022, 08/02/2022, Additional history exists Pneumococcal vaccine <65 Aged Out No longer eligible based on patient's age to complete this topic Procedures Procedure Name Priority Date/Time Associated Diagnosis Comments BOTOX INJECTION Routine 03/09/2025 1:00 PM CDT Intractable chronic migraine without aura and without status migrainosus from Last 3 Months Results * Botox Injection (03/09/2025 1:00 PM CDT) Narrative Michelle Toro - 03/09/2025 1:00 PM CDT Michelle Toro 03/10/2025 8:23 AM Botox Injection Performed by: Katelynn Hurd MD Authorized by: Katelynn Hurd MD [place] Protocol: Procedure Details - Botox Injection: Procedure Details: See Botox flow sheet for details on injection sites and amounts. us Katelynn Hurd MD IN CLINIC/BEDSIDE ORDERAB LES Final Result from Last 3 Months Insurance [id number] [place] [phone] [facility] [place] [address] [facility] [place] [address] Care Teams Gericare Aide Relationship Specialty Start Date End Date Tigre Sy MD PCP - General Family Medicine 02/09/20
--- OUTSIDE RECORDS SUMMARY | 2025-05-13 18:57 | XMS_ITS ---
Author Organization Unknown Plan of Treatment Description Planned Activity Planned Timing [facility] is a provider organization who partners directly with Health Plans and provides integrated primary care, behavioral health, and drug abuse social worker for an attributed population Letter encounter to patientTelephone encounter Apr 27, 2025Jul 2024 Patient Care team information Name Category Status Period Participants - - Proposed period not known -
--- OUTSIDE RECORDS SUMMARY | 2025-05-13 18:57 | XMS_ITS | Encounter Summary ---
Author Organization [facility] Address [address] [place] [address] Care Team Providers Care Director Epidemiology Name Role Phone June Vo Primary Care Pr ovider Encounter Details Date Type Department Care Team (Late st Contact Info) Description 12/27/2019 Telephone [facility] [address] [place] [address] Thuan Mccormack, SUPERVISOR RECEIVING AND PROCESSING-MELTER LOADER [address] [place] [phone] Social History Tobacco Use Types Packs/Day Years Used Date Smoking Tobacco: Never Smokeless Tobacco: Never Alcohol Use Standard Drinks/Week Comments No 0 (1 standard drink = 0.6 oz pur e alcohol) Comments Unknown Sex and Gender Information Value Date Recorded Sex Assigned at Not on file Legal Sex Female 5:37 PM DIGITAL STRATEGIST Gender Identity Not on file Sexual Orientation Not on file 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
--- OUTSIDE RECORDS SUMMARY | 2025-05-13 18:57 | XMS_ITS | Data Portability ---
Author Organization [place] [facility], Main Office Address [address] [place] [address] Assessment Encounter Date Assessment Date Assessment LastModified by Organization Details LastModified Time 03/02/2023 03/02/2023 cologuard negative december 2022. Not available 03/02/2023 10:53:41 09/02/2023 09/02/2023 cologuard negative december 2022. Not available 09/02/2023 10:29:14 Plan of Treatment Reminders Order Date Submit Date Provider Last Modified By Organization Details Last Modified Time Details Appointments None recorded. Lab lipid panel, serum 2022 023 [email or web address] Not available 13:49:43 CMP, serum or plasma 2022 023 [email or web address] Not available 3 13:49:42 CBC w/ auto diff 2022 023 [email or web address] Not available 3 13:49:42 vitamin B12, serum 2022 023 [email or web address] Not available 3 13:49:43 folate, serum 2022 023 [email or web address] Not available 3 13:49:42 TSH + free T4, serum 2022 023 GINNA Not available 3 14:10:57 vitamin B12, serum 2022 023 [email or web address] [facility] - Outpatient Lab, [address] [place], [address], 3 10:30:34 lipid panel, serum [address] Outpatient Lab, [address] [place], [address], 3 10:30:49 folate, serum [address] Outpatient Lab, [address] [place], [address], 3 10:31:06 CMP, serum or plasma [address] Outpatient Lab, [address] [place], [address], 3 10:30:15 CBC w/ auto diff [address] Outpatient Lab, [address] [place], [address], 3 10:30:26 urinalysis complete, reflex culture [address] Outpatient Lab, [address] [place], [address], 3 10:30:59 TSH + free T4, serum 2022 023 [facility] Outpatient Lab, [address] [place], [address], 3 10:32:25 HbA1c (hemoglobin A1c), blood [address] Outpatient Lab, [address] [place], [address], 3 10:29:58 Referral neurologica l surgeon referral 2022 023 GINNA Small MD, [address] [place] [address], [address], 3 17:43:01 Procedures None recorded. Surgeries None recorded. Imaging MRI, lumbar spine, w/o contrast - approved [id number] 09/02/23-2022 023 GINNA Not available 3 16:15:19 Medication Orders None recorded. Patient TargetsNo targets recorded. Patient InstructionsNo instructions recorded. Reason for Referral Neurological Surgeon Referra l for Compression fracture of lumbar spine Referring Physician: June Walker, Internal Medicine, Encounter Date: 09/02/2023 Results Created Date Observation Date Name Description Value Unit Range Abnormal Flag Note LastModifiedBy Organization Detail LastModifiedTime 10/21/20 22 10/21/2022 rapid flu (A+B) Flu A negati ve Not Available [facility] [place] [address], [place], [address], 10/21/2022 12:38:10 10/21/20 22 10/21/2022 rapid flu (A+B) Flu B negati ve Not Available [facility] [place] [address], [place], [address], 10/21/2022 12:38:10 10/21/20 22 10/21/2022 rapid strep group A, throa t STREP A negati ve Not Available [facility] [place] [address], [place], [address], 10/21/2022 12:37:59 09/08/2009/08/2023 MRI, lumba r spine , w/o contr ast No observ ation record ed. [email or web address] [place] [address] [address] [place], [address], 09/10/2023 15:56:45 10/05/20 23 10/02/2023 XR, sacru m + coccy x, 2 or more view No observ ation record ed. [email or web address] [facility] [address], [place], [address], 10/08/2023 09:53:50 10/16/2008/30/2023 XR, lumbo sacra l spine , 2 or 3 view No observ ation record ed. [email or web address] Not Available 10/19 18:00:27 Result Notes None recorded. Problems Name Problem SNOMED Code Status Onset Date Resolution Date Notes Provider Name and Address Organization Details Recorded Time Generalized acute body pains 884815578 Active 2021 Not Available [facility] 3 16:44:48 Benign essential hypertension 9256520 Active Not Available [facility] 3 16:44:48 Deviated nasal septum 538484335 Active Not Available [facility] 3 16:44:48 Folliculitis 48973367 Active Not Available [facility] 3 16:44:48 Herpes labialis 8036903 Active 2021 Not Available [facility] 3 16:44:48 Nausea present 197731468 Active Not Available [facility] 3 16:44:48 Folic acid deficiency 916994279 Active 2021 Not Available [facility] 3 16:44:48 Cobalamin deficiency 109821358 Active 2021 Not Available [facility] 3 16:44:49 Lateral epicondylitis 066290854 Active Not Available [facility] 3 16:44:49 Closed fracture distal phalanx, toe 507400305 Active Not Available [facility] 3 16:44:49 Anterior knee pain 240001129 Active Not Available [facility] 3 16:44:49 Headache 84028232 Active Not Available [facility] 3 16:44:49 Long-term drug therapy Active 2021 Not Available [facility] 3 16:44:49 Sore throat 690226040 Active 2021 Not Available [facility] 3 16:44:49 Pure hyperglycerid emia 320455068 Active Not Available [facility] 3 16:44:49 Mixed hyperlipidemi a 664257431 Active Not Available [facility] 3 16:44:49 Tenderness over maxillary sinus 432357613 Active Not Available [facility] 3 16:44:49 Tenderness over frontal sinus 619446535 Active Not Available [facility] 3 16:44:49 Loss of hair 850988597 Active Not Available [facility] 3 16:44:49 Vitamin D deficiency 31546267 Active 2021 Not Available [facility] 3 16:44:49 Depressive disorder 33762979 Active Not Available [facility] 3 16:44:50 Major depressive disorder 399457899 Active Not Available [facility] 3 16:44:50 Migraine 65796458 Active 2021 Not Available [facility] 3 16:44:50 Melanocytic nevus 601034388 Active Not Available [facility] 3 16:44:50 Hypothyroidis m 34865756 Active Not Available [facility] 3 16:44:50 Temporomandib ular joint disorder 54669354 Active Not Available [facility] 3 16:44:50 Aphthous ulcer of mouth 320106747 Active 2021 Not Available [facility] 3 16:44:50 Viral syndrome 882341831 Active 2021 Not Available [facility] 3 16:44:50 Anxiety 98046537 Active Not Available [facility] 3 16:44:50 Cough 55035463 Active 2021 Not Available [facility] 3 16:44:50 Candidiasis of skin 55222322 Active 2021 Not Available [facility] 3 16:44:51 Upper respiratory infection 28851541 Active Not Available [facility] 3 16:44:51 Carpal tunnel syndrome 85154814 Active Not Available [facility] 3 16:44:51 Vitamin B12 deficiency (non anemic) 45113074 Active Not Available [facility] 3 16:44:51 Acute maxillary sinusitis 01012631 Active Not Available [facility] 3 16:44:51 Atypical facial pain 04118082 Active Not Available [facility] 3 16:44:51 Candidiasis of vagina 21851324 Active 2021 Not Available [facility] 3 16:44:51 Obstructive sleep apnea syndrome 31742030 Active Not Available [facility] 3 16:44:51 Overactive urinary bladder 806529048 Active 2021 Not Available [facility] 3 16:44:51 Hyperglycemia 65778907 Active 2021 Not Available [facility] 3 16:44:52 Pain in limb 82123923 Active Not Available [facility] 3 16:44:52 Skin lesion 52278014 Active 2021 Not Available [facility] 3 16:44:52 Compression fracture of lumbar spine 566348672 Active 2022 JEANNA Saravia [address], [address], [place], [address] , [facility] 3 10:46:32 Pain in coccyx 57359591 Active 2022 JEANNA Saravia [address], [address], [place], [address] , [facility] 3 13:57:03 Eruption 699911772 Active 2022 JEANNA Saravia [address], [address], [place], [address] , [facility] 3 08:44:41 Problem Notes None recorded. Procedures Surgical History Date Name Laterality Status Provider Name and Address Organization Details Recorded Time Carpal tunnel surgery completed Not Available [facility] 12/31/2022 16:43:41 Biopsy completed Not Available [facility] 11/2022 16:43:41 Cataract Surgery completed Not Available [facility] 12/31/2022 16:43:41 ENT Surgery completed Not Available [facility] 12/31/2022 16:43:41 Imaging Results None recorded. Procedure Notes None recorded. Medical Equipment None Reported. Allergies Allergen ID Allergen Name Allergen Category Reaction Reaction Severity Criticality Documentation Date Start Date Code Code System Note Provider Name and Address Organization Details Recorded Time 52914 meloxicam medicatio n other Not available Not available 12/31/2022 42220 RxNorm kanke r sores Not Available [facility] 3 16:46:12 90694 Avelox medicatio n other Not available Not available 12/31/2022 81003 6 RxNorm swell ing in toung e Not Available [facility] 3 16:46:12 Medications Name Sig Start Date Stop Date Status Note LastModified by Organization Details LastModified Time cyclobenz aprine 10 mg tablet 10 MG ORALLY THREE TIMES A DAY NEEDED FOR MUSCLE SPASM FOR 10 DAYS active Not Available Not Available No t Available buspirone 5 mg tablet TAKE 1 TABLET BY MOUTH TWICE A DAY active Not Available Not Available No t Available silver sulfadiaz ine 1 % topical cream APPLY TO THE SORE LESION AND COVER WITH CLEAN BANDAGE 2 TIMES PER DAY active Not Available Not Available No t Available neomycin- polymyxin -hydrocor t 3.5 mg/mL-10, 000 unit/mL-1 % ear solution 02/04 completed Not Available Not Available Not Available doxycycli ne hyclate 100 mg capsule Take 1 capsule twice a day by oral route. 07/23 completed Not Available Not Available Not Available cefuroxim e axetil 250 mg tablet 07/23 completed Not Available Not Available Not Available ketoconaz ole 2 % shampoo APPLY TO WET HAIR, LEAVE ON FOR 3 MINUTES, THEN RINSE. USE THREE TIMES WEEKLY. 30 DAYS SUPPLY 08/16 completed Not Available Not Available Not Available clindamyc in HCl 300 mg capsule TAKE 1 CAPSULE BY MOUTH EVERY 6 HOURS 02/27 completed Not Available Not Available Not Available azithromy kyra 250 mg tablet TAKE 2 TABLETS (500 MG) BY ORAL ROUTE ONCE DAILY FOR 1 DAY THEN 1 TABLET (250 MG) BY ORAL ROUTE ONCE DAILY FOR 4 DAYS active Not Available Not Available No t Available ibuprofen 800 mg tablet 02/04 completed Not Available Not Available Not Available Lidocaine Viscous 2 % mucosal solution TAKE 15ML EVERY 4 HOURS SWISH AND SPIT DIRECTED (EQUAL PARTS: VISCOUS LIDOCAIN E 2%, MAALOX, CARAFATE , DIPHENHY DRAMINE) 03/02 completed Not Available Not Available Not Available benzonata te 200 mg capsule Take 1 capsule 3 times a day by oral route as needed. 03/14 completed Not Available Not Available Not Available sumatript an 100 mg tablet PLEASE SEE ATTACHED FOR DETAILED DIRECTIO NS active Not Available Not Available No t Available ondansetr on HCl 4 mg tablet Take 2 tablets every 8 hours by oral route for 2 days. active Not Available Not Available No t Available prednison e 20 mg tablet 02/04 completed Not Available Not Available Not Available Tubersol 5 tub. unit/0.1 mL intraderm al injection solution Take 0.1 mL by intrader mal route. active Not Available Not Available No t Available clonazepa m 0.5 mg tablet TAKE 1 TABLET BY MOUTH EVERY DAY NEEDED active Not Available Not Available No t Available Diflucan 150 mg tablet take one tab po on day 1 and day 3. 07/23 completed Not Available Not Available Not Available sumatript an 50 mg tablet TAKE ONE TABLET BY MOUTH AT THE ONSET OF MIGRAINE , MAY REPEAT AFTER 1 HOUR IF NEEDED. MAX 2 TABLETS IN 24 HOURS. active Not Available Not Available No t Available penicilli n V potassium 500 mg tablet active Not Available Not Available Not Available topiramat e 25 mg tablet 02/04 completed Not Available Not Available Not Available acetamino phen 300 mg-codein e 30 mg tablet Take 1 tablet every 8 hours by oral route as needed. 2022 active Not Available Not Available Not Avai lable sulfameth oxazole 800 mg-trimet hoprim 160 mg tablet Take 1 tablet every 12 hours by oral route. 09/01 completed Not Available Not Available Not Available omeprazol e 40 mg capsule,d elayed release 02/19 completed Not Available Not Available Not Available tramadol 50 mg tablet 02/04 completed Not Available Not Available Not Available acetamino phen 500 mg tablet 500 MG ORALLY EVERY 6 HOURS NEEDED FOR PAIN FOR 30 DAYS active Not Available Not Available No t Available triamcino lone acetonide 0.1 % topical cream DAB TOPICALL Y TWO TIMES A DAY 02/04 completed Not Available Not Available Not Available ketorolac 30 mg/mL (1 mL) injection solution Inject 1 mL every 6 hours by intramus cular route. 08/20 completed Internal note: [facility]# [id number] ernal note: Pt tolerate d it well Not Available Not Available Not Available butalbita l-acetami nophen-ca ffeine 50 mg-325 mg-40 mg tablet PLEASE SEE ATTACHED FOR DETAILED DIRECTIO NS active Not Available Not Available No t Available acyclovir 800 mg tablet active Not Available Not Available Not Available fenofibra te micronize d 134 mg capsule TAKE ONE CAPSULE BY MOUTH EVERY DAY 11/30 completed Not Available Not Available Not Available ketorolac 10 mg tablet Take 1 tablet every 6 hours by oral route as needed for 5 days. 02/04 completed Not Available Not Available Not Available verapamil 120 mg tablet TAKE 1 TABLET BY MOUTH EVERY DAY 02/04 completed Not Available Not Available Not Available levothyro xine 100 mcg tablet TAKE 1 TABLET BY MOUTH EVERY DAY active Not Available Not Available No t Available alprazola m 0.5 mg tablet TAKE 1 TABLET BY MOUTH THREE TIMES A DAY NEEDED 02/04 completed Not Available Not Available Not Available propranol ol 40 mg tablet TAKE 1 TABLET BY MOUTH TWICE A DAY active Not Available Not Available No t Available amitripty line 25 mg tablet Take 1 tablet every day by oral route for 30 days. 02/04 completed Not Available Not Available Not Available methocarb pawan 750 mg tablet TAKE 1 TABLET BY MOUTH TWICE A DAY NEEDED FOR MUSCLE STRAIN 02/04 completed Not Available Not Available Not Available betametha sone valerate 0.1 % topical cream APPLY TO AFFECTED AREA TWICE A DAY 03/02 completed Not Available Not Available Not Available hydrocodo ne 7.5 mg-acetam inophen 325 mg tablet 02/04 completed Not Available Not Available Not Available cyanocoba cha (vit B-12) 1,000 mcg/mL injection solution Inject 2 mL every month by subcutan eous route as needed. active [facility] # [id number] 44- Not Available Not Available Not Available oseltamiv ir 75 mg capsule TAKE ONE CAPSULE BY MOUTH EVERY 12 HOURS FOR 5 DAYS 02/04 completed Not Available Not Available Not Available triamcino lone acetonide 0.1 % topical ointment 02/04 completed Not Available Not Available Not Available nystatin 100,000 unit/gram topical cream APPLY TO AFFECTED AREA TWICE DAILY NEEDED FOR RASH ON ABDOMEN REGION active Not Available Not Available No t Available buspirone 10 mg tablet TAKE 1 TABLET BY MOUTH TWICE A DAY 2023 active Not Available Not Available Not Avai lable carbamaze pine 100 mg chewable tablet CHEW AND SWALLOW T PO BID TO TID PRN 02/04 completed Not Available Not Available Not Available polymyxin B sulfate 10,000 unit-trim ethoprim 1 mg/mL eye drops active Not Available Not Available No t Available bupropion HCl 75 mg tablet TK 1 T PO BID 07/23 completed increase d dose Not Available Not Available Not Available nystatin- triamcino lone 100,000 unit/g-0. 1 % topical cream 02/04 completed Not Available Not Available Not Available butalbita l-aspirin -caffeine 50 mg-325 mg-40 mg capsule 02/04 completed Not Available Not Available Not Available mupirocin calcium 2 % topical cream APPLY A SMALL AMOUNT TO THE AFFECTED AREA BY TOPICAL ROUTE 3 TIMES PER DAY FOR 10 DAYS 02/04 completed Not Available Not Available Not Available gabapenti n 300 mg capsule 03/02 completed Not Available Not Available Not Available gentamici n 0.1 % topical cream 02/04 completed Not Available Not Available Not Available folic acid 1 mg tablet Take 1 tablet every day by oral route. active Not Available Not Available No t Available codeine 10 mg-guaife nesin 100 mg/5 mL oral liquid TAKE 10 ML BY MOUTH EVERY 6 TO 8 HOURS NEEDED 02/27 completed Not Available Not Available Not Available mupirocin 2 % topical ointment APPLY A SMALL AMOUNT TO THE AFFECTED AREA on extremit y BY TOPICAL ROUTE 3 TIMES PER DAY 02/04 completed Not Available Not Available Not Available ergocalci ferol (vitamin D2) 1,250 mcg (50,000 unit) capsule TAKE 1 CAPSULE twice a week active Not Available Not Available No t Available nystatin 100,000 unit/gram topical powder APPLY TO THE AFFECTED AREA(S) BY TOPICAL ROUTE 2 TIMES PER DAY PRN 03/25 completed Not Available Not Available Not Available methylpre dnisolone 4 mg tablets in a dose pack TAKE 6 TABLETS ON DAY 1 DIRECTED ON PACKAGE AND DECREASE BY 1 TAB EACH DAY FOR A TOTAL OF 6 DAYS 07/23 completed Not Available Not Available Not Available propranol ol 20 mg tablet TAKE 1 TABLET BY MOUTH TWICE A DAY 02/04 completed Not Available Not Available Not Available Tussionex [place] ic ER 10 mg-8 mg/5 mL suspensio n,extende d release Take 5 mL every 12 hours by oral route as needed. 03/14 completed Not Available Not Available Not Available betametha sone dipropion ate 0.05 % topical ointment active Not Available Not Available Not Available ondansetr on 4 mg disintegr ating tablet LET 1 TABLET DISSOLVE BY MOUTH EVERY 8 HOURS NEEDED active Not Available Not Available No t Available cefdinir 300 mg capsule TAKE 1 CAPSULE BY MOUTH EVERY 12 HOURS FOR 14 DAYS 07/23 completed Not Available Not Available Not Available fluticaso ne propionat e 50 mcg/actua tion nasal spray,nasra pension inhale 2 sprays each nostril daily 08/16 completed Not Available Not Available Not Available clotrimaz ole 1 % topical cream APPLY TOPICALL Y TO THE AFFECTED AREA TWICE DAILY 03/02 completed Not Available Not Available Not Available doxycycli ne hyclate 100 mg tablet Take 1 tablet twice a day by oral route. active Not Available Not Available No t Available gentamici n 0.1 % topical ointment 02/04 completed Not Available Not Available Not Available diazepam 5 mg tablet PLEASE SEE ATTACHED FOR DETAILED DIRECTIO NS active Not Available Not Available No t Available amoxicill in 875 mg-potass ium clavulana te 125 mg tablet TAKE 1 TABLET BY MOUTH EVERY 12 HOURS 08/16 completed Not Available Not Available Not Available Allergy Relief (loratadi ne) 10 mg tablet TAKE 1 TABLET BY MOUTH EVERY DAY 12/20 completed Not Available Not Available Not Available bupropion HCl XL 300 mg 24 hr tablet, extended release TAKE 1 TABLET BY MOUTH EVERY DAY IN THE MORNING active Not Available Not Available No t Available bupropion HCl XL 150 mg 24 hr tablet, extended release TAKE 1 TABLET BY MOUTH EVERY DAY 07/23 completed increase d dosage Not Available Not Available Not Available nitrofura ntoin monohydra te/macroc rystals 100 mg capsule TAKE 1 CAPSULE BY MOUTH EVERY 12 HOURS 02/04 completed Not Available Not Available Not Available duloxetin e 60 mg capsule,d elayed release TAKE 1 CAPSULE BY MOUTH EVERY DAY active Not Available Not Available No t Available solifenac in 5 mg tablet TAKE 1 TABLET BY MOUTH EVERY DAY active Not Available Not Available No t Available fenofibra te 160 mg tablet TAKE 1 TABLET BY MOUTH EVERY DAY 2023 active Not Available Not Available Not Avai lable Augmentin every 12 hours for sinus infectio n 2014 active Not Available Not Available Not Avai lable Synthroid takes daily 2014 active for hypothyr oidism Not Available Not Available Not Available verapamil takes daily 2014 active for BP Not Available Not Available Not Avai lable buspirone takes 1 daily 2014 active for anxiety/ depressi on Not Available Not Available Not Available Xanax as needed 2014 active for anxiety Not Available Not Available Not Available Cymbalta takes daily 2014 active for anxiety/ depressi on Not Available Not Available Not Available Mucinex 1,200 mg tablet, extended release Take 1 tablet twice a day by oral route. active Not Available Not Available No t Available Voltaren 1 % topical gel APPLY 2 GRAM TO THE AFFECTED AREA(S) BY TOPICAL ROUTE 4 TIMES PER DAY active Not Available Not Available No t Available Durezol 0.05 % eye drops active Not Available Not Available No t Available drospiren -e.estrad -l.mefol 3 mg-0.02 mg-0.451 mg(24)/0. 451 mg(4)tabl et take as directed . 02/04 completed Not Available Not Available Not Available Vestura (28) 3 mg-0.02 mg tablet TAKE 1 TABLET BY MOUTH EVERY DAY, TAKING CONTINUO USLY active Not Available Not Available No t Available selenium sulfide 2.5 % lotion WET HAIR AND LATHER INTO SCALP UP TO ONCE DAILY. active Not Available Not Available No t Available Vitals Date Recorded Body height Body temperature Body mass index (BMI) Body weight Respiratory rate Oxygen saturation Oxygen saturation in Arterial blood by Pulse oximetry Heart rate Systolic And Diastolic Provider Name and Address Organization Details Last Updated DateTime 3 154.94 cm 97.5 [degF] 37.4 kg/m2 96733.2 9 g 16 /min 99 % 99 % 81 /min 120/78 mm[Hg] Roro BlackGUADALUPE [facility] [employer] [facility] 3 10:23:26 Date Recorded Body height Systolic And Diastolic Provider Name and Address Organization Details Last Updated DateTime 06/03/2023 154.94 cm 124/70 mm[Hg] Yadira Alas RN [facility] [employer] [facility] 06/03/2023 10:40:54 Date Recorded Body height Oxygen saturation Oxygen saturation in Arterial blood by Pulse oximetry Heart rate Respiratory rate Body temperature Systolic And Diastolic Provider Name and Address Organization Details Last Updated DateTime 2 154.94 cm 98 % 98 % 93 /min 16 /min 97.3 [degF] 120/72 mm[Hg] Not Available [facility] 3 16:44:23 Date Recorded Body height Body mass index (BMI) Body weight Body temperature Heart rate Oxygen saturation Oxygen saturation in Arterial blood by Pulse oximetry Systolic And Diastolic Provider Name and Address Organization Details Last Updated DateTime 3 154.94 cm 36.7 kg/m2 06536.9 2 g 96.8 [degF] 91 /min 98 % 98 % 122/72 mm[Hg] Yadira Aals RN [facility] [employer] [facility] 3 10:24:54 Date Recorded Body height Oxygen saturation Oxygen saturation in Arterial blood by Pulse oximetry Heart rate Body temperature Body weight Systolic And Diastolic Provider Name and Address Organization Details Last Updated DateTime 2 154.94 cm 100 % 100 % 95 /min 96.5 [degF] 60829.7 g 108/70 mm[Hg] Not Available [facility] 3 16:44:24 Social History Question Answer Notes LastModified by Organizat ion Details LastModified Time Tobacco Smoking Status Never Smoker Not Available [facility] 12/31/2022 16:43:39 What Is Your Level Of Caffeine Consumption? Heavy Soda [id number] Information not available 12/31/2022 How Much Tobacco Do You Chew? None [id number] Information not available 12/31/2022 In The 14 Days Before Symptom Onset, Have You Had Close Contact With A Laboratory-confirm ed COVID-19 While That Case Was Ill? No [id number] Information not available 12/31/2022 In The 14 Days Before Symptom Onset, Have You Had Close Contact With A Person Who Is Under Investigation For COVID-19 While That Person Was Ill? No [id number] Information not available 12/31/2022 What Type Of Diet Are You Following? REGULAR [id number] Information not available 12/31/2022 Which Illicit Or Recreational Drugs Have You Used? None [id number].[id number] 026 Information not available 12/31/2022 Have There Been Any Changes To Your Family Or Social Situation? No MIGRATION.[id number] 026 Information not available 12/31/2022 Do You Use Insect Repellent Routinely? No [id number].[id number] 026 Information not available 12/31/2022 What Was The Date Of Your Most Recent Tobacco Screening? 02/04/2021 [id number] Information not available 12/31/2022 What Is Your Relationship Status? [id number].[id number] Information not available 12/31/2022 Do You Use Your Seat Belt Or Car Seat Routinely? Yes [id number].[id number] 026 Information not available 12/31/2022 Do You Have Smoke And Carbon Monoxide Detectors In Your Home? Yes MIGRATION.[id number] 026 Information not available 12/31/2022 How Much Tobacco Do You Smoke? No MIGRATION.[id number] 026 Information not available 12/31/2022 Do You Use Sunscreen Routinely? Yes MIGRATION.[id number] 026 Information not available 12/31/2022 Have You Recently Traveled Abroad? No MIGRATION.[id number] 026 Information not available 12/31/2022 Do You Have Any Dietary Restrictions? No MIGRATION.[id number] 026 Information not available 12/31/2022 Sex: Unknown Functional Status Question Answer Note LastModified by Organizat ion Details LastModified Time Do you use any illicit or recreational drugs? No MIGRATION.[id number] Information not available 12/31/2022 Do you or have you ever used any other forms of tobacco or nicotine? No MIGRATION.848800 4046 Information not available 12/31/2022 What is your level of alcohol consumption? None MIGRATION.710429 9329 Information not available 12/31/2022 Do you or have you ever used smokeless tobacco? Never used smokeless tobacco MIGRATION.704773 3589 Information not available 12/31/2022 Are you currently employed? 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 Never used electronic cigarettes MIGRATION.[id number] 6143 Information not available 12/31/2022 What is your exercise level? None MIGRATION.208572 8086 Information not available 12/31/2022 Mental Status None recorded. Family History Relationship Description Onset Age of this Age Resolved Age Notes LastModified by Organization Details LastModified Time Mother General health good [id number] Not available 12/31/2022 16:43:42 Father General health good MIGRATION.428 [id number] Not available 12/31/2022 16:43:42 Maternal Grandfather Malignant neoplastic disease MIGRATION.728 [id number] Not available 12/31/2022 16:43:42 Paternal Grandmother Malignant neoplastic disease MIGRATION.800 [id number] Not available 12/31/2022 16:43:42 Medical History Condition Response SLEEP APNEA Y HIGH CHOLESTEROL / HYPERLIPIDEMIA Y EYE PROBLEMS Y HYPERTHYROIDISM Y DEPRESSION (INCLUDING POST ) Y BACK / NECK PROBLEMS Y OBESITY Y URINARY/BLADDER/KIDNEY PROBLEMS Y SKIN PROBLEMS Y HEADACHES/MIGRAINES Y HYPERTENSION Y ANXIETY DISORDER Y BRONCHITIS Y Gynecological History Statement/Question Response Abnormal Pap Y Date of Last Mammogram 09/26/2020 Flow Moderate Sexually Active? Y Menses Monthly Y Date of Last Pap 12/13/2013 Duration of Flow (days) 7 LMP Unknown Obstetrics History GPAL:G 0 P 0 0 0 0 Immunizations Vaccine Type Date Status Note Provider Nam e and Address Organization Details Recorded Time Influenza, split virus, quadrivalent, PF 6 completed Not Available [facility] 12/31/2022 16:46:09 Tdap 4 completed Not Available [facility] 12/31/2022 16:46:09 influenza, unspecified formulation 3 completed Not Available [facility] 12/31/2022 16:46:09 Influenza, split virus, quadrivalent, PF 2 completed Not Available [facility] 12/31/2022 16:46:10 Influenza, split virus, quadrivalent, PF 1 completed Not Available [facility] 12/31/2022 16:46:10 Influenza, split virus, quadrivalent, PF 0 completed Not Available [facility] 12/31/2022 16:46:10 Influenza, split virus, quadrivalent, PF 9 completed Not Available [facility] 12/31/2022 16:46:10 Influenza, split virus, quadrivalent, PF 8 completed Not Available [facility] 12/31/2022 16:46:10 Influenza, split virus, quadrivalent, PF 5 completed Not Available [facility] 12/31/2022 16:46:10 TST-PPD intradermal 5 completed Not Available [facility] 12/31/2022 16:46:10 Past Encounters Encounter ID Performer Location Encounter Start Date Encounter Closed Date Diagnosis/Indication Diagnosis SNOMED-CT Code Diagnosis ICD10 Code Diagnosis Note [id number] JEANNA Saravia [facility] Internal [facility] [place] [address] [place] [address] 01/17/2021 00:00:00 01/17/2021 17:56:42 [id number] JEANNA Saravia [facility] Internal [facility] [place] [address] [place] [address] 02/04/2021 00:00:00 02/27/2021 20:01:10 [id number] JEANNA Saravia [facility] [place] [address] [place] [address] 08/16/2021 00:00:00 09/01/2021 10:06:43 [id number] JEANNA Saravia [facility] Internal [facility] [place] [address] [place] [address] 09/24/2021 00:00:00 09/28/2021 01:09:47 [id number] Macario Cantu MD [facility] Internal [facility] [place] [address] [place] [address] 02/20/2022 00:00:00 03/01/2022 22:29:02 [id number] Macario Cantu MD [facility] Internal [facility] [place] [address] [place] [address] 03/20/2022 00:00:00 03/20/2022 17:59:50 [id number] JEANNA Saravia [facility] Internal [facility] [place] [address], [address] [place] [address] [place] [address] 08/15/2022 00:00:00 08/31/2022 01:04:56 [id number] JEANNA Saravia [facility] Internal [facility] [place] [address], [address] [place] [address] [place] [address] 10/21/2022 00:00:00 10/29/2022 12:37:04 [id number] JEANNA Saravia [facility] Internal [facility] [place] [address], [address] [place] [address] [place] [address] 03/02/2023 10:13:07 03/02/2023 10:56:41 Benign essential hypertension 9053274 I10 stable on propranolo l 40mg bid. Mixed hyperlipidemia 267 776948 E78.2 due for fasting lipids Hypothyroidism 80862433 E03.9 stable on supplement but due for labs Vitamin D deficiency 347 16352 E55.9 stable on supplement . continue. Vitamin B1 2 deficiency (non anemic) 65313158 E53.8 due for b12 labs. on supplement . Major depr essive disorder 110884070 F32.9 stable on wellbutrin XL 300mg daily Obstructiv e sleep apnea syndrome 74395709 G47.33 stable on cpap Migraine 98067698 G43.90 9 stable. no acute changes. Overactive urinary bladder 361539876 N32.81 stable on vesicare 5mg daily. Folic acid deficiency 19 2981334 E53.8 stable on OTC supplement . Long-term drug therapy 137536049 Z79.899 routine CMP, CBC and UA due Diabetes m ellitus screening 676118322 Z13.1 screening A1c due. [id number] JEANNA Saravia [facility] Internal Med [place] [address] [facility] [place] [address] 06/03/2023 10:37:45 06/03/2023 10:41:12 [id number] JEANNA Saravia [facility] Internal Med [place] [address] [place] [address] 09/02/2023 10:18:37 09/02/2023 10:50:27 Adult health examination 074117108 Z00.01 Wellness exam is completed with f/u testing ordered. Benign ess ential hypertension 6348000 I10 stable on propranolo l 40mg bid. Mixed hyperlipidemia 267 268119 E78.2 on fenofibrat e therapy. due for fasting labs in Oct. Hypothyroidism 20723210 E03.9 stable on supplement but due for labs in Oct. Vitamin D deficiency 347 40798 E55.9 stable on supplement . continue. Vitamin B1 2 deficiency (non anemic) 70465340 E53.8 due for b12 lab in Oct.. on supplement . Major depr essive disorder 735734332 F32.9 stable on wellbutrin XL 300mg daily Obstructiv e sleep apnea syndrome 74345704 G47.33 stable on cpap Migraine 70845623 G43.90 9 stable. no acute changes. Overactive urinary bladder 066086762 N32.81 stable on vesicare 5mg daily. Folic acid deficiency 19 8814729 E53.8 stable on OTC supplement . Long-term drug therapy 613142859 Z79.899 routine CMP, CBC due in oct Compressio n fracture of lumbar spine 477459215 M48.56XD pt fell recently , slipped on spilled milk in her kitchen, hit tailbone. Severe pain prompted ER visit. Xray of Lumbar spine shows age indetermin ate L2 compressio n fracture. She has appt with Dr. Small in [place]. Referral placed and MRI of Lumbar spine ordered with her on copy for appt. Health Concerns Section Related Observation LastModified by Organization Detai ls LastModified Time None Recorded Concern Status LastModified by Organization Details LastModified Time None Recorded Advance Directives Directive None Recorded Payers Insurance Date Sequence Insurance Name Policy Number Policy Segura Covered Member ID Segura Member ID Guarantor Name 02/15/2025 1 [facility] - DOS ON OR AFTER 21 (MEDICAID REPLACEMENT - HMO) Anna Bland [id number] Anna Bland Notes Date Note Type Note Provider Name and Address Organization Details Recorded Time 08/15/20 22 text/htm l Anxiety/DepressionReported bypatient.Quality:symptoms worse in the evening Severity:denies suicidal ideations; able to maintain relationships;interference with household activities;interference with sleep Duration:symptoms lasting over 2 weeks Onset/Timing:still present Context:no major life stressors Modifying Factors:medications as directed Associated Symptoms:denies homicidal ideations; no significant weight gain; no significant weight loss; no visual/auditory hallucinations; no delusions; no shortness of breath; mood good; no anxiety; no crying spells; no panic; no isolation; sleeping well; appetite good; energy good; no apathy; maintaining functionality HyperlipidemiaReported bypatient.Duration:chronic Control:usually well controlled Compliance:compliant;noncomplia nt with diet;does not exercise Complications:no coronary artery disease; no peripheral artery disease; no cardiovascular disease Risk Factors:hypertensionHypertensio nReported bypatient.Duration:has noted for years Onset/Timing:better Alleviating Factors:medication Self Care:not under emotional stress Associated Symptoms:no shortness of breath; no palpitations; no decline in exercise capacity; no snoring;fatigueHypothyroidismRe ported bypatient.Quality:not changing Duration:constant Onset/Timing:still present Context/Risk:normal thyroid levels; no history of head or neck radiation during childhood; no history of thyroid disease; no history of hyperthyroidism; no excess iron exposure;history of hypothyroidism;female gender Modifying Factors:medication Exerciseno exercise Associated Symptoms:no cold intolerance; no heat intolerance; no weight loss; no weight gain; no double vision; no dry eyes; no hoarseness; no difficulty swallowing; no neck masses; no deepening of the voice; no fast heart rate; no increased blood pressure; no palpitations; no chest pain; no chest tightess or pressure; no constipation; no diarrhea; no vomiting; no decreased appetite; no loose stools; no irregular menstrual periods; no excessive sweating; no joint pain; no numbness; no tingling of the hands or feet; no dry skin; no tremor; no nervousness; no anxiety; no depression; no sleep difficulties; no skin changes;fatigue;hair changesObstructive Sleep Apnea F/UReported bypatient.Quality:no gasping for air; no witnessed apnea; no hyponasal speech; no frequent breathing through the mouth;loud snoring Onset/Timing:chronic Duration:continuous Severity:no frequent sore throats resulting in excess missed days from school / work per year; no difficulty getting going in the morning; no awakening in the middle of the night with sore throat;limits daily activities Location:no enlarged tonsils; no nasal passage blockage; no throat pain; no feeling of tightness in throat; no dryness of mouth; no chest congestion Context:no lack of adequate sleep; no shift work; not currently taking medication to help sleep; no recent weight gain; no recent upper respiratory infection; no recent sick contacts; not worse with environmental exposure; not worse with seasonal allergen exposure; no hypertension; normal sleep hours; 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 Alleviating factors:waiting to get an in lab sleep study Aggravating factors:not worse during an upper respiratory infection (a cold); not worse when allergies are active Associated Symptoms:no awakening at night short of breath; no sweating heavily at night; no impaired work performace; no nasal congestion;morning headache;excessive sleepiness during the day;suddenly falling asleep during the day;excess napping;poor concentration Not Available [facility] 08/31/2022 01:04:56 03/02/20 23 text/htm l Anxiety/DepressionReported bypatient.Quality:symptoms worse in the evening Severity:denies suicidal ideations; able to maintain relationships; does not interfere with activities of daily living;interference with household activities Duration:symptoms lasting over 2 weeks Onset/Timing:still present Context:major life stressors Modifying Factors:rx Associated Symptoms:denies homicidal ideations; no significant weight gain; no significant weight loss; no visual/auditory hallucinations; no delusions; no shortness of breathHyperlipidemiaReported bypatient.Duration:chronic Control:usually well controlled Compliance:compliant;noncomplia nt with diet;does not exercise Complications:no coronary artery disease; no peripheral artery disease; no cardiovascular disease Risk Factors:hypertensionHypertensio nReported bypatient.Duration:has noted for years Onset/Timing:better Alleviating Factors:medication Associated Symptoms:no shortness of breath; no palpitations; no decline in exercise capacity; no snoring;fatigueObstructive Sleep Apnea F/UReported bypatient.Quality:no gasping for air; no witnessed apnea; no hyponasal speech; no frequent breathing through the mouth;loud snoring Onset/Timing:chronic Duration:continuous Severity:does not limit daily activities; no frequent sore throats resulting in excess missed days from school / work per year; no difficulty getting going in the morning; no awakening in the middle of the night with sore throat Location:no enlarged tonsils; no nasal passage blockage; no throat pain; no feeling of tightness in throat; no chest congestion;throat pain;dryness of mouth Context:no lack of adequate sleep; no shift work; not currently taking medication to help sleep; no recent weight gain; no recent upper respiratory infection; no recent sick contacts; not worse with environmental exposure; not worse with seasonal allergen exposure; no hypertension; normal sleep hours Alleviating factors:relief with CPAP (but it broke and hasnt gotten a new one.) Aggravating factors:not worse during an upper respiratory infection (a cold); not worse when allergies are active Associated Symptoms:no morning headache; no awakening at night short of breath; no sweating heavily at night; no excessive sleepiness during the day; no suddenly falling asleep during the day; no napping; no impaired work performace; no nasal congestion JEANNA Saravia [address] [facility] [address], [address], [facility] [employer] 03/31/2023 19:44:31 09/02/20 23 text/htm l Anxiety/DepressionReported bypatient.Quality:symptoms worse in the evening Severity:denies suicidal ideations; able to maintain relationships; does not interfere with activities of daily living;interference with household activities Duration:symptoms lasting over 2 weeks Onset/Timing:still present Context:major life stressors Modifying Factors:rx Associated Symptoms:denies homicidal ideations; no significant weight gain; no significant weight loss; no visual/auditory hallucinations; no delusions; no shortness of breathHyperlipidemiaReported bypatient.Duration:chronic Control:usually well controlled Compliance:compliant;noncomplia nt with diet;does not exercise Complications:no coronary artery disease; no peripheral artery disease; no cardiovascular disease Risk Factors:hypertensionHypertensio nReported bypatient.Duration:has noted for years Onset/Timing:better Alleviating Factors:medication Associated Symptoms:no shortness of breath; no palpitations; no decline in exercise capacity; no snoring;fatigueObstructive Sleep Apnea F/UReported bypatient.Quality:no gasping for air; no witnessed apnea; no hyponasal speech; no frequent breathing through the mouth;loud snoring Onset/Timing:chronic Duration:continuous Severity:does not limit daily activities; no frequent sore throats resulting in excess missed days from school / work per year; no difficulty getting going in the morning; no awakening in the middle of the night with sore throat Location:no enlarged tonsils; no nasal passage blockage; no throat pain; no feeling of tightness in throat; no chest congestion;throat pain;dryness of mouth Context:no lack of adequate sleep; no shift work; not currently taking medication to help sleep; no recent weight gain; no recent upper respiratory infection; no recent sick contacts; not worse with environmental exposure; not worse with seasonal allergen exposure; no hypertension; normal sleep hours Alleviating factors:relief with CPAP (but it broke and hasnt gotten a new one.) Aggravating factors:not worse during an upper respiratory infection (a cold); not worse when allergies are active Associated Symptoms:no morning headache; no awakening at night short of breath; no sweating heavily at night; no excessive sleepiness during the day; no suddenly falling asleep during the day; no napping; no impaired work performace; no nasal congestion wellnesspt requesting neuro referral - see pt case 08/31 JEANNA Saravia [address] [place] [address], [place] [address], [place], [address], [place] [facility] [employer] [facility] 09/02/2023 10:54:32 OBGyn Episode No OBEpisode recorded.
--- OUTSIDE RECORDS SUMMARY | 2025-05-13 18:58 | XMS_ITS | Data Portability ---
Author Organization [facility] Address [address] [place] [address] Care Team Providers Care Political Scientist Name Role Phone ARTEM WALTERS Primary Care Provider Unavailab le Assessment Encounter Date Assessment Date Assessment LastModified by Organization Details LastModified Time 05/13/2024 05/13/2024 Mammogram UTD this year cologuard UTD still. Not available 05/13/2024 17:16:41 11/28/2024 11/28/2024 Mammogram UTD this year cologuard UTD still. Not available 11/28/2024 11:37:33 Plan of Treatment Reminders Order Date Submit Date Provider Last Modified By Organization Details Last Modified Time Details Appointments ANY 15 2024 10:00A M JEANNA Saravia Not available Not available Not available Lab vitamin B12 + folate, serum or blood 2024 025 GINNA [facility], [address], [place], [address], 12/21/2024 11:08:12 CBC w/ auto diff 2024 025 GINNA [facility], [address], [place], [address], 12/21/2024 11:08:14 CMP, serum or plasma 2024 025 DECATUR [facility], [address], [place], [address], 12/21/2024 11:08:10 HbA1c (hemoglob in A1c), blood 2024 025 GINNA [facility], [address], [place], [address], 12/21/2024 11:08:13 TSH + free T4, serum 2024 025 GINNACELESTINA Clifford, [address], [place], [address], 12/21/2024 11:08:09 lipid panel, serum 2024 025 GINNA [facility], [address], [place], [address], 12/21/2024 11:08:08 vitamin B12 + folate, serum or blood 2023 024 GINNA Clifford, [address], [place], [address], 05/26/2024 14:37:25 CBC w/ auto diff 2023 024 GINNA Clifford, [address], [place], [address], 05/26/2024 14:37:26 CMP, serum or plasma 2023 024 GINNA Clifford, [address], [place], [address], 05/26/2024 14:37:24 HbA1c (hemoglob in A1c), blood 2023 024 GINNA Clifford, [address], [place], [address], 05/26/2024 14:37:25 TSH + free T4, serum 2023 024 GINNA Clifford, [address], [place], [address], 05/26/2024 14:37:23 lipid panel, serum 2023 024 DECATUR [facility], [address], [place], [address], 05/26/2024 14:37:24 Referral None recorded. Procedures home sleep testing (PROC) - patient has been without cpap 4 years now due to machine not working. Needs new updated sleep study with settings provided. 2023 [facility], [address], [place], [address], 08/31/2024 11:16:02 Surgeries None recorded. Imaging DEXA 2023 [facility] (Im[facility]), [address], [place], [address], 11/28/2024 11:47:12 Medication Orders ibandrona te 150 mg tablet 2024 025 [facility] #[id number], [address], [place], [id number], 12/05/2024 10:45:06 mupirocin 2 % topical ointment 2023 024 [facility] #[id number], [address], [place], [id number], 08/30/2024 11:09:12 fenofibra te 160 mg tablet 2023 024 [facility] #[id number], [address] [place], [address], 05/13/2024 17:17:52 Patient TargetsNo targets recorded. Patient Instructions Encounter Date Encounter Id Patient Instructions Last Modified By Organization Details Last Modified Time 08/30/2024 [id number] A healthy lifestyle: care instructions Not available 08/30/2024 11:02:11 Reason for Referral None Reported. Results Created Date Observation Date Name Description Value Unit Range Abnormal Flag Note LastModifiedBy Organization Detail LastModifiedTime 05/25/20 24 05/26/2024 TSH+F REE T4 TSH 1.810 uIU/m L 0.450- 4.500 Not Available [facility] ([facility]) [address] [place], [address], 05/26/2024 14:37:23 05/25/20 24 05/26/2024 TSH+F REE T4 T4,free(dire ct) 1.16 NG/dL 0.82-1 .77 Not Available [facility] ([facility]) [address] [place], [address], 05/26/2024 14:37:23 05/25/20 24 05/26/2024 LIPID PANEL cholesterol, total 145 mg/dL 100-19 9 Not Available [facility] ([facility]) [address] [place], [address], 05/26/2024 14:37:24 05/25/20 24 05/26/2024 LIPID PANEL triglyceride s 259 mg/dL 0-149 above high normal Not Available [facility] ([facility]) [address] [place], [address], 05/26/2024 14:37:24 05/25/20 24 05/26/2024 LIPID PANEL HDL cholesterol 37 mg/dL >39 below low normal Not Available [facility] ([facility]) [address] [place], [address], 05/26/2024 14:37:24 05/25/20 24 05/26/2024 LIPID PANEL VLDL cholesterol jony 42 mg/dL 5-40 above high normal Not Available [facility] ([facility]) [address] [place], [address], 05/26/2024 14:37:24 05/25/20 24 05/26/2024 LIPID PANEL LDL chol calc ([facility]) 66 mg/dL 0-99 Not Available [facility] ([facility]) [address] [facility] [place], [address], 05/26/2024 14:37:24 05/25/20 24 05/26/2024 COMP. METAB OLIC PANEL (14) glucose 105 mg/dL 70-99 above high normal Not Available [facility] ([facility]) [address] [facility] [place], [address], 05/26/2024 14:37:24 05/25/20 24 05/26/2024 COMP. METAB OLIC PANEL (14) BUN 11 mg/dL 6-24 Not Available [facility] ([facility]) [address] [facility] [place], [address], 05/26/2024 14:37:24 05/25/20 24 05/26/2024 COMP. METAB OLIC PANEL (14) creatinine 0.53 mg/dL 0.57-1 .00 below low normal Not Available [facility] ([facility]) [address] [facility], [place], [address], 05/26/2024 14:37:24 05/25/20 24 05/26/2024 COMP. METAB OLIC PANEL (14) eGFR 113 mL/mi n/1.7 3 >59 Not Available [facility] ([facility]) [address] [facility] [place], [address], 05/26/2024 14:37:24 05/25/20 24 05/26/2024 COMP. METAB OLIC PANEL (14) BUN/creatini ne ratio 21 9-23 Not Available [facility] ([facility]) [address] [facility] [place], [address], 05/26/2024 14:37:24 05/25/20 24 05/26/2024 COMP. METAB OLIC PANEL (14) sodium 141 mmol/ L 134-14 4 Not Available [facility] ([facility]) [address] [place], [address], 05/26/2024 14:37:24 05/25/20 24 05/26/2024 COMP. METAB OLIC PANEL (14) potassium 4.0 mmol/ L 3.5-5. 2 Not Available [facility] ([facility]) [address] [facility] [facility] [facility], [place], [address], 05/26/2024 14:37:24 05/25/20 24 05/26/2024 COMP. METAB OLIC PANEL (14) chloride 104 mmol/ L 96-106 Not Available [facility] ([facility]) [address], [place], [address], 05/26/2024 14:37:24 05/25/20 24 05/26/2024 COMP. METAB OLIC PANEL (14) carbon dioxide, total 23 mmol/ L 20-29 Not Available [facility] ([facility]) [address] [facility] [place], [address], 05/26/2024 14:37:24 05/25/20 24 05/26/2024 COMP. METAB OLIC PANEL (14) calcium 8.7 mg/dL 8.7-10 .2 Not Available [facility] ([facility]) [address] [facility] [place], [address], 05/26/2024 14:37:24 05/25/20 24 05/26/2024 COMP. METAB OLIC PANEL (14) protein, total 6.4 g/dL 6.0-8. 5 Not Available [facility] ([facility]) [address] [facility] [place], [address], 05/26/2024 14:37:24 05/25/20 24 05/26/2024 COMP. METAB OLIC PANEL (14) albumin 3.7 g/dL 3.9-4. 9 below low normal Not Available [facility] ([facility]) [address] [facility] [place], [address], 05/26/2024 14:37:24 05/25/20 24 05/26/2024 COMP. METAB OLIC PANEL (14) globulin, total 2.7 g/dL 1.5-4. 5 Not Available [facility] ([facility]) [address] [place], [address], 05/26/2024 14:37:24 05/25/20 24 05/26/2024 COMP. METAB OLIC PANEL (14) bilirubin, total 0.2 mg/dL 0.0-1. 2 Not Available [facility] ([facility]) [address] [place], [address], 05/26/2024 14:37:24 05/25/20 24 05/26/2024 COMP. METAB OLIC PANEL (14) alkaline phosphatase 69 IU/L 44-121 Not Available [facility] ([facility]) [address] [place], [address], 05/26/2024 14:37:24 05/25/20 24 05/26/2024 COMP. METAB OLIC PANEL (14) AST (SGOT) 16 IU/L 0-40 Not Available [facility] ([facility]) [address] [place], [address], 05/26/2024 14:37:24 05/25/20 24 05/26/2024 COMP. METAB OLIC PANEL (14) ALT (SGPT) 14 IU/L 0-32 Not Available [facility] ([facility]) [address] [place], [address], 05/26/2024 14:37:24 05/25/20 24 05/26/2024 VITAM IN B12 AND FOLAT E vitamin B12 235 pg/mL 232-12 45 Not Available [facility] ([facility]) [address] [place], [address], 05/26/2024 14:37:25 05/25/20 24 05/26/2024 VITAM IN B12 AND FOLAT E folate (folic acid), serum <2.0 NG/mL >3.0 below low normal Kayla ified by repea t lacie sis A serum folat e mendez ntrat ion of less than 3.1 ng/mL is consi dered to repre sent clini jony defic iency . Not Available [facility] ([facility]) [address] [facility], [place], [address], 05/26/2024 14:37:25 05/25/20 24 05/26/2024 HEMOG LOBIN A1C hemoglobin A1C 5.6 % 4.8-5. 6 Predi abete s: 5.7 - 6.4 Diabe max: >6.4 Glyce estrella contr ol for adult s with diabe max: <7.0 Not Available [facility] ([facility]) [address] [facility], [place], [address], 05/26/2024 14:37:25 05/25/20 24 05/26/2024 CBC WITH DIFFE RENTI AL/PL ATELE T WBC 7.7 x10e3 /uL 3.4-10 .8 Not Available [facility] ([facility]) [address] [place], [address], 05/26/2024 14:37:26 05/25/20 24 05/26/2024 CBC WITH DIFFE RENTI AL/PL ATELE T RBC 4.19 x10e6 /uL 3.77-5 .28 Not Available [facility] ([facility]) [address] [place], [address], 05/26/2024 14:37:26 05/25/20 24 05/26/2024 CBC WITH DIFFE RENTI AL/PL ATELE T hemoglobin 13.2 g/dL 11.1-1 5.9 Not Available [facility] ([facility]) [address] [place], [address], 05/26/2024 14:37:26 05/25/20 24 05/26/2024 CBC WITH DIFFE RENTI AL/PL ATELE T hematocrit 39.2 % 34.0-4 6.6 Not Available [facility] ([facility]) [address] [facility], [place], [address], 05/26/2024 14:37:26 05/25/20 24 05/26/2024 CBC WITH DIFFE RENTI AL/PL ATELE T MCV 94 fL 79-97 Not Available [facility] ([facility]) [address] [facility], [place], [address], 05/26/2024 14:37:26 05/25/20 24 05/26/2024 CBC WITH DIFFE RENTI AL/PL ATELE T MCH 31.5 pg 26.6-3 3.0 Not Available [facility] ([facility]) [address] [facility], [place], [address], 05/26/2024 14:37:26 05/25/20 24 05/26/2024 CBC WITH DIFFE RENTI AL/PL ATELE T MCHC 33.7 g/dL 31.5-3 5.7 Not Available [facility] ([facility]) [address] [place], [address], 05/26/2024 14:37:26 05/25/20 24 05/26/2024 CBC WITH DIFFE RENTI AL/PL ATELE T RDW 12.6 % 11.7-1 5.4 Not Available [facility] ([facility]) [address] [place], [address], 05/26/2024 14:37:26 05/25/20 24 05/26/2024 CBC WITH DIFFE RENTI AL/PL ATELE T platelets 321 x10e3 /uL 150-45 0 Not Available [facility] ([facility]) [address] [place], [address], 05/26/2024 14:37:26 05/25/20 24 05/26/2024 CBC WITH DIFFE RENTI AL/PL ATELE T neutrophils 60 % notest ab. Not Available [facility] ([facility]) [address] [facility], [place], [address], 05/26/2024 14:37:26 05/25/20 24 05/26/2024 CBC WITH DIFFE RENTI AL/PL ATELE T lymphs 31 % notest ab. Not Available [facility] ([facility]) [address] [facility], [place], [address], 05/26/2024 14:37:26 05/25/20 24 05/26/2024 CBC WITH DIFFE RENTI AL/PL ATELE T monocytes 7 % notest ab. Not Available [facility] ([facility]) [address] [facility], [place], [address], 05/26/2024 14:37:26 05/25/20 24 05/26/2024 CBC WITH DIFFE RENTI AL/PL ATELE T eos 2 % notest ab. Not Available [facility] ([facility]) [address] [facility], [place], [address], 05/26/2024 14:37:26 05/25/20 24 05/26/2024 CBC WITH DIFFE RENTI AL/PL ATELE T basos 0 % notest ab. Not Available [facility] ([facility]) [address] [place], [address], 05/26/2024 14:37:26 05/25/20 24 05/26/2024 CBC WITH DIFFE RENTI AL/PL ATELE T neutrophils (absolute) 4.6 x10e3 /uL 1.4-7. 0 Not Available [facility] ([facility]) [address] [facility], [place], [address], 05/26/2024 14:37:26 05/25/20 24 05/26/2024 CBC WITH DIFFE RENTI AL/PL ATELE T lymphs (absolute) 2.4 x10e3 /uL 0.7-3. 1 Not Available [facility] ([facility]) [address] [facility], [place], [address], 05/26/2024 14:37:26 05/25/20 24 05/26/2024 CBC WITH DIFFE RENTI AL/PL ATELE T monocytes(ab solute) 0.5 x10e3 /uL 0.1-0. 9 Not Available [facility] ([facility]) [address] [facility], [place], [address], 05/26/2024 14:37:26 05/25/20 24 05/26/2024 CBC WITH DIFFE RENTI AL/PL ATELE T eos (absolute) 0.1 x10e3 /uL 0.0-0. 4 Not Available [facility] ([facility]) [address] [facility], [place], [address], 05/26/2024 14:37:26 05/25/20 24 05/26/2024 CBC WITH DIFFE RENTI AL/PL ATELE T baso (absolute) 0.0 x10e3 /uL 0.0-0. 2 Not Available [facility] ([facility]) [address] [facility], [place], [address], 05/26/2024 14:37:26 05/25/20 24 05/26/2024 CBC WITH DIFFE RENTI AL/PL ATELE T immature granulocytes 0 % notest ab. Not Available [facility] ([facility]) [address] [facility], [place], [address], 05/26/2024 14:37:26 05/25/20 24 05/26/2024 CBC WITH DIFFE RENTI AL/PL ATELE T immature grans (abs) 0.0 x10e3 /uL 0.0-0. 1 Not Available [facility] ([facility]) [address] [facility], [place], [address], 05/26/2024 14:37:26 12/14/19 25 12/15/2024 LIPID PANEL W/ CHOL/ HDL RATIO cholesterol, total 120 mg/dL 100-19 9 Not Available [facility] ([facility]) [address] [place], [address], 12/21/2024 11:08:08 12/14/19 25 12/15/2024 LIPID PANEL W/ CHOL/ HDL RATIO triglyceride s 271 mg/dL 0-149 above high normal Not Available [facility] ([facility]) [address] [place], [address], 12/21/2024 11:08:08 12/14/19 25 12/15/2024 LIPID PANEL W/ CHOL/ HDL RATIO HDL cholesterol 26 mg/dL >39 below low normal Not Available [facility] ([facility]) [address] [place], [address], 12/21/2024 11:08:08 12/14/19 25 12/15/2024 LIPID PANEL W/ CHOL/ HDL RATIO VLDL cholesterol jony 43 mg/dL 5-40 above high normal Not Available [facility] ([facility]) [address] [place], [address], 12/21/2024 11:08:08 12/14/19 25 12/15/2024 LIPID PANEL W/ CHOL/ HDL RATIO LDL chol calc ([facility]) 51 mg/dL 0-99 Not Available [facility] ([facility]) [address] [place], [address], 12/21/2024 11:08:08 12/14/19 25 12/15/2024 LIPID PANEL W/ CHOL/ HDL RATIO T. chol/HDL ratio 4.6 ratio 0.0-4. 4 above high normal T. Chol/ HDL Ratio Men Women 1/2 Avg.R isk 3.4 3.3 Avg.R isk 5.0 4.4 2X Avg.R isk 9.6 7.1 3X Avg.R isk 23.4 11.0 Not Available [facility] ([facility]) [address] [place], [address], 12/21/2024 11:08:08 12/14/19 25 12/15/2024 TSH+F REE T4 TSH 2.500 uIU/m L 0.450- 4.500 Not Available [facility] ([facility]) [address] [place], [address], 12/21/2024 11:08:09 12/14/19 25 12/15/2024 TSH+F REE T4 T4,free(dire ct) 1.16 NG/dL 0.82-1 .77 Not Available [facility] ([facility]) [address] [place], [address], 12/21/2024 11:08:09 12/14/19 25 12/15/2024 COMP. METAB OLIC PANEL (14) glucose 94 mg/dL 70-99 Not Available [facility] ([facility]) [address] [place], [address], 12/21/2024 11:08:10 12/14/19 25 12/15/2024 COMP. METAB OLIC PANEL (14) BUN 12 mg/dL 6-24 Not Available [facility] ([facility]) [address] [place], [address], 12/21/2024 11:08:10 12/14/19 25 12/15/2024 COMP. METAB OLIC PANEL (14) creatinine 0.55 mg/dL 0.57-1 .00 below low normal Not Available [facility] ([facility]) [address] [place], [address], 12/21/2024 11:08:10 12/14/19 25 12/15/2024 COMP. METAB OLIC PANEL (14) eGFR 112 mL/mi n/1.7 3 >59 Not Available [facility] ([facility]) [address] [place], [address], 12/21/2024 11:08:10 12/14/19 25 12/15/2024 COMP. METAB OLIC PANEL (14) BUN/creatini ne ratio 22 9-23 Not Available [facility] ([facility]) [address] [facility] [place], [address], 12/21/2024 11:08:10 12/14/19 25 12/15/2024 COMP. METAB OLIC PANEL (14) sodium 141 mmol/ L 134-14 4 Not Available [facility] ([facility]) [address] [facility] [place], [address], 12/21/2024 11:08:10 12/14/19 25 12/15/2024 COMP. METAB OLIC PANEL (14) potassium 4.2 mmol/ L 3.5-5. 2 Not Available [facility] ([facility]) [address] [facility], [place], [address], 12/21/2024 11:08:10 12/14/19 25 12/15/2024 COMP. METAB OLIC PANEL (14) chloride 104 mmol/ L 96-106 Not Available [facility] ([facility]) [address] [facility] [place], [address], 12/21/2024 11:08:10 12/14/19 25 12/15/2024 COMP. METAB OLIC PANEL (14) carbon dioxide, total 21 mmol/ L 20-29 Not Available [facility] ([facility]) [address] [facility] [place], [address], 12/21/2024 11:08:10 12/14/19 25 12/15/2024 COMP. METAB OLIC PANEL (14) calcium 9.0 mg/dL 8.7-10 .2 Not Available [facility] ([facility]) [address] [facility] [place], [address], 12/21/2024 11:08:10 12/14/19 25 12/15/2024 COMP. METAB OLIC PANEL (14) protein, total 6.7 g/dL 6.0-8. 5 Not Available [facility] ([facility]) [address] [place], [address], 12/21/2024 11:08:10 12/14/19 25 12/15/2024 COMP. METAB OLIC PANEL (14) albumin 4.0 g/dL 3.9-4. 9 Not Available [facility] ([facility]) [address] [place], [address], 12/21/2024 11:08:10 12/14/19 25 12/15/2024 COMP. METAB OLIC PANEL (14) globulin, total 2.7 g/dL 1.5-4. 5 Not Available [facility] ([facility]) [address] [facility] [place], [address], 12/21/2024 11:08:10 12/14/19 25 12/15/2024 COMP. METAB OLIC PANEL (14) bilirubin, total 0.2 mg/dL 0.0-1. 2 Not Available [facility] ([facility] [address] [place] [address], 12/21/2024 11:08:10 12/14/19 25 12/15/2024 COMP. METAB OLIC PANEL (14) alkaline phosphatase 62 IU/L 44-121 Not Available [facility] ([facility]) [address] [facility] [place], [address], 12/21/2024 11:08:10 12/14/19 25 12/15/2024 COMP. METAB OLIC PANEL (14) AST (SGOT) 36 IU/L 0-40 Not Available [facility] ([facility]) [address] [facility] [place], [address], 12/21/2024 11:08:10 12/14/19 25 12/15/2024 COMP. METAB OLIC PANEL (14) ALT (SGPT) 25 IU/L 0-32 Not Available [facility] ([facility]) [address] [facility], [place], [address], 12/21/2024 11:08:10 12/14/19 25 12/17/2024 HOMOC Y+MET HYL homocyst(E)i ne 13.1 umol/ L 0.0-14 .5 Not Available [facility] ([facility]) [address] [facility], [place], [address], 12/21/2024 11:08:11 12/14/1912/21/2024 HOMOC Y+MET HYL methylmaloni c acid, serum 120 nmol/ L 0-378 Not Available [facility] ([facility]) [address] [facility], [place], [address], 12/21/2024 11:08:11 12/14/19 25 12/15/2024 VITAM IN B12+F OLATE vitamin B12 293 pg/mL 232-12 45 Not Available [facility] ([facility]) [address] [facility], [place], [address], 12/21/2024 11:08:12 12/14/1912/15/2024 VITAM IN B12+F OLATE folate (folic acid), serum 3.4 NG/mL >3.0 A serum folat e mendez ntrat ion of less than 3.1 ng/mL is consi dered to repre sent clini jony defic iency . Not Available [facility] ([facility]) [address] [facility], [place], [address], 12/21/2024 11:08:12 12/14/1912/14/2024 HEMOG LOBIN A1C hemoglobin A1C 6.0 % 4.8-5. 6 above high normal Predi abete s: 5.7 - 6.4 Diabe max: >6.4 Glyce estrella contr ol for adult s with diabe max: <7.0 Not Available [facility] ([facility]) [address] [facility], [place], [address], 12/21/2024 11:08:13 12/14/19 25 12/14/2024 CBC WITH DIFFE RENTI AL/PL ATELE T WBC 4.1 x10e3 /uL 3.4-10 .8 Not Available [facility] ([facility]) [address] [facility], [place], [address], 12/21/2024 11:08:14 12/14/19 25 12/14/2024 CBC WITH DIFFE RENTI AL/PL ATELE T RBC 4.33 x10e6 /uL 3.77-5 .28 Not Available [facility] ([facility]) [address] [facility], [place], [address], 12/21/2024 11:08:14 12/14/19 25 12/14/2024 CBC WITH DIFFE RENTI AL/PL ATELE T hemoglobin 13.6 g/dL 11.1-1 5.9 Not Available [facility] ([facility]) [address] [facility], [place], [address], 12/21/2024 11:08:14 12/14/19 25 12/14/2024 CBC WITH DIFFE RENTI AL/PL ATELE T hematocrit 41.0 % 34.0-4 6.6 Not Available [facility] ([facility]) [address] [facility], [place], [address], 12/21/2024 11:08:14 12/14/19 25 12/14/2024 CBC WITH DIFFE RENTI AL/PL ATELE T MCV 95 fL 79-97 Not Available [facility] ([facility]) [address] [facility], [place], [address], 12/21/2024 11:08:14 12/14/19 25 12/14/2024 CBC WITH DIFFE RENTI AL/PL ATELE T MCH 31.4 pg 26.6-3 3.0 Not Available [facility] ([facility]) [address] [facility], [place], [address], 12/21/2024 11:08:14 12/14/19 25 12/14/2024 CBC WITH DIFFE RENTI AL/PL ATELE T MCHC 33.2 g/dL 31.5-3 5.7 Not Available [facility] ([facility]) [address] [facility], [place], [address], 12/21/2024 11:08:14 12/14/19 25 12/14/2024 CBC WITH DIFFE RENTI AL/PL ATELE T RDW 12.4 % 11.7-1 5.4 Not Available [facility] ([facility]) [address] [facility], [place], [address], 12/21/2024 11:08:14 12/14/19 25 12/14/2024 CBC WITH DIFFE RENTI AL/PL ATELE T platelets 336 x10e3 /uL 150-45 0 Not Available [facility] ([facility]) [address] [facility], [place], [address], 12/21/2024 11:08:14 12/14/19 25 12/14/2024 CBC WITH DIFFE RENTI AL/PL ATELE T neutrophils 49 % notest ab. Not Available [facility] ([facility]) [address] [facility], [place], [address], 12/21/2024 11:08:14 12/14/19 25 12/14/2024 CBC WITH DIFFE RENTI AL/PL ATELE T lymphs 31 % notest ab. Not Available [facility] ([facility]) [address] [facility], [place], [address], 12/21/2024 11:08:14 12/14/19 25 12/14/2024 CBC WITH DIFFE RENTI AL/PL ATELE T monocytes 15 % notest ab. Not Available [facility] ([facility]) [address] [address] [facility], [place], [address], 12/21/2024 11:08:14 12/14/19 25 12/14/2024 CBC WITH DIFFE RENTI AL/PL ATELE T eos 3 % notest ab. Not Available [facility] ([facility]) [address] [address] [facility], [place], [address], 12/21/2024 11:08:14 12/14/19 25 12/14/2024 CBC WITH DIFFE RENTI AL/PL ATELE T basos 1 % notest ab. Not Available [facility] ([facility]) [address] [facility], [place], [address], 12/21/2024 11:08:14 12/14/19 25 12/14/2024 CBC WITH DIFFE RENTI AL/PL ATELE T neutrophils (absolute) 2.1 x10e3 /uL 1.4-7. 0 Not Available [facility] ([facility]) [address] [facility], [place], [address], 12/21/2024 11:08:14 12/14/19 25 12/14/2024 CBC WITH DIFFE RENTI AL/PL ATELE T lymphs (absolute) 1.3 x10e3 /uL 0.7-3. 1 Not Available [facility] ([facility]) [address] [place], [address], 12/21/2024 11:08:14 12/14/19 25 12/14/2024 CBC WITH DIFFE RENTI AL/PL ATELE T monocytes(ab solute) 0.6 x10e3 /uL 0.1-0. 9 Not Available [facility] ([facility]) [address], [place], [address], 12/21/2024 11:08:14 12/14/19 25 12/14/2024 CBC WITH DIFFE RENTI AL/PL ATELE T eos (absolute) 0.1 x10e3 /uL 0.0-0. 4 Not Available [facility] ([facility]) [address] [place], [address], 12/21/2024 11:08:14 12/14/19 25 12/14/2024 CBC WITH DIFFE RENTI AL/PL ATELE T baso (absolute) 0.0 x10e3 /uL 0.0-0. 2 Not Available [facility] ([facility]) [address], [place], [address], 12/21/2024 11:08:14 12/14/19 25 12/14/2024 CBC WITH DIFFE RENTI AL/PL ATELE T immature granulocytes 1 % notest ab. Not Available [facility] ([facility]) [address], [place], [address], 12/21/2024 11:08:14 12/14/19 25 12/14/2024 CBC WITH DIFFE RENTI AL/PL ATELE T immature grans (abs) 0.0 x10e3 /uL 0.0-0. 1 Not Available [facility] ([facility]) [address], [place], [address], 12/21/2024 11:08:14 09/26/20 24 09/07/2024 polys omnog long , split night (PROC ) No observ ation record ed. [facility] [address] [place] [address], [address], 09/27/2024 16:02:26 09/27/20 24 09/07/2024 polys omnog long , split night (PROC ) No observ ation record ed. [facility] [address] [place], [address], 11/28/2024 11:41:52 11/28/19 25 11/14/2024 DEXA No observ ation record ed. [address] [place] [address], [address], 11/28/2024 17:27:58 Result Notes None recorded. Problems Name Problem SNOMED Code Status Onset Date Resolution Date Notes Provider Name and Address Organization Details Recorded Time Mixed anxiety and depressive disorder 433823670 Active 2023 Roro Black null, [place] - [facility] 4 13:06:46 Hypothyroid ism 50050989 Active 2023 Roro Black [place] [facility] 4 13:06:56 Hyperlipide vincent 18048784 Active 2023 JEANNA Saravia Attn: Accountdanya g,[address] [place], [address], [place] [facility] 4 17:04:46 Migraine 40469437 Active 2023 JEANNA Saravia Attn: Accountin g,[address] [place], [address], [place] [facility] 4 17:04:48 Skin lesion 04872805 Active 2023 JEANNA Saravia Attn: Accountin g,[address] [place], [address], [place] [facility] 4 17:04:53 Long-term drug therapy Active 2023 JAENNA Saravia Attn: Accountin g,[address] [place], [address], [place] [facility] 4 17:04:54 Vitamin B12 deficiency (non anemic) 76835850 Active 2023 JEANNA Saravia Attn: Accountin g,[address] [place], [address], [place] [facility] 4 17:49:26 Positive screening for depression on PHQ-9 (Patient Health Questionnai re 9) 4666408582678 00 Active 2023 JEANNA Saravia Attn: Accountdanya g,[address] [place], [address], [place] [facility] 4 17:50:49 Body mass index 30+ - obesity 603656588 Active 2023 Bertha Galicia [place], [place] - [facility] 4 10:53:21 Obesity 858682886 Active 2023 JEANNA Saravia Attn: Supa klein,[address] [facility], [place], [address], [facility] - [facility] 4 11:02:08 Obstructive sleep apnea syndrome 32537637 Active 2023 JEANNA Saravia Attn: Supa klein,[address] [place], [address], [facility] - [facility] 4 11:03:14 Pain of bilateral knee joints 3264144344455 04 Active 2024 JEANNA Saravia Attn: Supa klein,[address] [facility], [place], [address], [facility] - [facility] 5 09:29:13 Osteoporosi s 16666720 Active 2024 JEANNA Saravia Attn: Supa klein,[address] [facility], [place], [address], [facility] 5 09:29:29 Problem Notes None recorded. Procedures Surgical History Date Name Laterality Status Provider Name and Address Organization Details Recorded Time Eye Surgery completed Bertha sales MA [facility] 05/13/2024 12:01:42 Imaging Results None recorded. Procedure Notes None recorded. Medical Equipment None Reported. Allergies Allergen ID Allergen Name Allergen Category Reaction Reaction Severity Criticality Documentation Date Start Date Code Code System Note Provider Name and Address Organization Details Recorded Time 243503 meloxicam medicatio n Not available Not available Not available 05/13/2024 10801 RxNorm Bertha Galicia MA null, [facility] 4 12:00:58 Medications Name Sig Start Date Stop Date Status Note LastModified by Organization Details LastModified Time cyclobenzap rine 10 mg tablet 10 MG ORALLY THREE TIMES A DAY NEEDED FOR MUSCLE SPASM FOR 10 DAYS 05/13 completed Not Available Not Available Not Available doxycycline hyclate 100 mg capsule Take 1 capsule twice a day by oral route. 05/26 completed Not Available Not Available Not Available fluconazole 150 mg tablet TAKE 1 TABLET BY MOUTH EVERY OTHER DAY 11/28 completed Not Available Not Available Not Available sumatriptan 100 mg tablet PLEASE SEE ATTACHED FOR DETAILED DIRECTION S active Not Available Not Available No t Available cephalexin 250 mg capsule TAKE 1 CAPSULE BY MOUTH EVERY 6 HOURS FOR 10 DAYS 11/28 completed Not Available Not Available Not Available prednisone 20 mg tablet Take 3 tablets p.o. daily for 2 days then take 2 tablets p.o. daily for 2 days,Then take 1 tablet p.o. daily for 2 days, then take 1/2 tablet daily for 2 days active Not Available Not Available No t Available alendronate 70 mg tablet TAKE 1 TABLET BY MOUTH EVERY WEEK active Not Available Not Available No t Available clonazepam 0.5 mg tablet TAKE 1 TABLET BY MOUTH EVERY DAY NEEDED 2024 active Not Available Not Available Not Avai lable sumatriptan 50 mg tablet TAKE 1 TABLET BY MOUTH NEEDED FOR MIGRIANE. MAY REPEAT IN 2 HOURS IF NEEDED. MAX OF 2 TABLETS IN 24 HOURS active Not Available Not Available No t Available sulfamethox azole 800 mg-trimetho prim 160 mg tablet TAKE 1 TABLET BY MOUTH TWICE DAILY FOR 7 DAYS active Not Available Not Available No t Available acetaminoph en 500 mg tablet 500 MG ORALLY EVERY 6 HOURS NEEDED FOR PAIN FOR 30 DAYS 05/13 completed Not Available Not Available Not Available butalbital- acetaminoph en-caffeine 50 mg-325 mg-40 mg tablet TAKE 1 TAB BY MOUTH EVERY 6 HOURS NEEDED FOR HEADACHE (NO ADDITIONA L TYLENOL OR ACETMENOP HEN) active Not Available Not Available No t Available levothyroxi ne 100 mcg tablet TAKE 1 TABLET BY MOUTH DAILY active Not Available Not Available No t Available propranolol 40 mg tablet TAKE 1 TABLET BY MOUTH TWICE DAILY active Not Available Not Available No t Available amoxicillin 875 mg tablet Take 1 tablet every 12 hours by oral route. 08/30 completed Not Available Not Available Not Available cyanocobala min (vit B-12) 1,000 mcg/mL injection solution Inject 2 mL every month by subcutane ous route. active Not Available Not Available No t Available nystatin 100,000 unit/gram topical cream APPLY TOPICALLY TO THE AFFECTED AREA TWICE DAILY NEEDED 2024 active Not Available Not Available Not Avai lable buspirone 10 mg tablet TAKE 1 TABLET BY MOUTH TWICE DAILY active Not Available Not Available No t Available omeprazole 20 mg capsule,del ayed release active Not Available Not Available Not Available folic acid 1 mg tablet active Not Available Not Available Not Available mupirocin 2 % topical ointment APPLY SMALL AMOUNT TOPICALLY IN EACH NOSTRIL THREE TIMES DAILY active Not Available Not Available No t Available oxybutynin chloride 5 mg tablet TAKE 1/2 TABLET BY MOUTH TWICE A DAY active Not Available Not Available No t Available diazepam 5 mg tablet PLEASE SEE ATTACHED FOR DETAILED DIRECTION S 05/13 completed Not Available Not Available Not Available bupropion HCl XL 300 mg 24 hr tablet, extended release TAKE 1 TABLET BY MOUTH DAILY active Not Available Not Available No t Available duloxetine 60 mg capsule,del ayed release TAKE 1 CAPSULE BY MOUTH EVERY DAY active Not Available Not Available No t Available ibandronate 150 mg tablet Take 1 tablet every month by oral route as directed. 12/05 completed Not Available Not Available Not Available fenofibrate 160 mg tablet TAKE 1 TABLET BY MOUTH EVERY DAY active Not Available Not Available No t Available drospirenon e 3 mg-ethinyl estradiol 0.02 mg tablet TAKE 1 TABLET BY MOUTH EVERY DAY CONTUNIOU HAYLIE. SKIP PLACEBOS active Not Available Not Available No t Available Vitals Date Recorded Systolic And Diastolic Systolic And Diastolic Provider Name and Address Organization Details Last Updated DateTime 11/28/2024 142/80 mm[Hg] 122/80 mm[Hg] JEANNA Saravia Attn: Accounting, [place], [address], [facility] 11/28/2024 11:44:49 Date Recorded Body height Body mass index (BMI) Body weight Respiratory rate Oxygen saturation Oxygen saturation in Arterial blood by Pulse oximetry Heart rate Systolic And Diastolic Provider Name and Address Organization Details Last Updated DateTime 157.48 cm 39 kg/m2 54290.1 7 g 20 /min 97 % 97 % 78 /min 148/82 mm[Hg] Bertha Galicia MA [facility] 11:32:49 Date Recorded Systolic And Diastolic Provider Name and Address Organization Details Last Updated DateTime 05/13/2024 128/80 mm[Hg] JEANNA Saravia Attn: Accounting,[address] [place], [address], [facility] 05/13/2024 17:15:11 Date Recorded Body height Body mass index (BMI) Body weight Respiratory rate Oxygen saturation Oxygen saturation in Arterial blood by Pulse oximetry Heart rate Systolic And Diastolic Provider Name and Address Organization Details Last Updated DateTime 4 157.48 cm 37.5 kg/m2 71467.5 8 g 20 /min 97 % 97 % 87 /min 132/88 mm[Hg] Bertha Galicia MA [facility] 4 16:56:57 Date Recorded Systolic And Diastolic Provider Name and Address Organization Details Last Updated DateTime 08/30/2024 130/80 mm[Hg] JEANNA Saravia Attn: Accounting,[address] [place], [address], [facility] 08/30/2024 11:06:21 Date Recorded Body height Body mass index (BMI) Body weight Respiratory rate Oxygen saturation Oxygen saturation in Arterial blood by Pulse oximetry Heart rate Systolic And Diastolic Provider Name and Address Organization Details Last Updated DateTime 4 157.48 cm 37.9 kg/m2 76415.6 2 g 20 /min 98 % 98 % 81 /min 118/82 mm[Hg] Bertha Galicia MA [facility] 10:55:03 Social History Question Answer Notes LastModified by Organizat ion Details LastModified Time Tobacco Smoking Status Never Smoker Bertha Galicia MA null, [facility] 05/13/2024 16:53:56 Do You Have An Advance Directive? No Information n ot available 05/13/2024 Are You Blind Or Do You Have Difficulty Seeing? Yes Information n ot available 05/13/2024 What Is Your Level Of Caffeine Consumption? Moderate Information not available 05/13/2024 In The 14 Days Before Symptom Onset, Have You Had Close Contact With A Laboratory-confirm ed COVID-19 While That Case Was Ill? No Information n ot available 05/03/2024 In The 14 Days Before Symptom Onset, Have You Had Close Contact With A Person Who Is Under Investigation For COVID-19 While That Person Was Ill? No Information not available 05/03/2024 Have You Been To An Area Known To Be High Risk For COVID-19? No Information not available 05/03/2024 Are You Deaf Or Do You Have Serious Difficulty Hearing? No Information not available 05/13/2024 What Type Of Diet Are You Following? REGULAR Information n ot available 05/13/2024 Are There Any Guns Present In Your Home? No Information not available 05/13/2024 What Was The Date Of Your Most Recent Tobacco Screening? 11/28/2024 Information not available 11/28/2024 Do You Use Your Seat Belt Or Car Seat Routinely? Yes Information not available 05/03/2024 Do You Have Smoke And Carbon Monoxide Detectors In Your Home? Yes Information not available 05/03/2024 Do You Use Sunscreen Routinely? No Information not available 05/13/2024 Has Tobacco Cessation Counseling Been Provided? Yes Information not available 05/03/2024 On What Date Was Tobacco Cessation Counseling Provided? 11/28/2024 Information not available 11/28/2024 Sex: Female Functional Status Question Answer Note LastModified by Organizat ion Details LastModified Time Do you use any illicit or recreational drugs? No Information not available 05/13/2024 Do you or have you ever used any other forms of tobacco or nicotine? No Information not available 05/13/2024 What is your level of alcohol consumption? None Information not available 05/13/2024 Are you able to care for yourself? Yes Information not available 05/03/2024 What is your exercise level? None Information not available 05/13/2024 Mental Status Question Answer Note LastModified by Organization D etails LastModified Time Do you feel stressed (tense, restless, nervous, or anxious, or unable to sleep at night)? [id number] Information not available 08/30/2024 Family History Relationship Description Onset Age of this Age Resolved Age Notes LastModified by Organization Details LastModified Time Sister Depressive disorder [email or web address] Not available 2023 12:01:58 Sister Hypertensive disorder tcarterma Not available 2023 12:02:04 Sister Hypercholest erolemia tcarterma Not available 2023 12:02:13 Brother Depressive disorder tcarterma Not available 2023 12:01:58 Medical History Condition Response Anxiety Disorder Y Skin Problems Y High Blood Pressure Y Headaches Y Thyroid Problems Y Depression Y High Cholesterol Y Gynecological History Statement/Question Response Menses Monthly N Current Control Method Menopause Obstetrics History GPAL:G 0 P 0 0 0 0 Immunizations Vaccine Type Date Status Note Provider Nam e and Address Organization Details Recorded Time Influenza, MDCK, quadrivalent, PF 3 completed Bertha Galicia [place], [place] [facility] 08/29/2024 11:00:15 COVID-19, mRNA, LNP-S, PF, 100 mcg/0.5mL dose or 50 mcg/0.25mL dose 2 completed Bertha Gal[place] [facility] 08/29/2024 11:00:15 COVID-19, mRNA, LNP-S, PF, 30 mcg/0.3 mL dose 1 completed Bertha Gal[place] [facility] 08/29/2024 11:00:15 COVID-19, mRNA, LNP-S, PF, 30 mcg/0.3 mL dose 1 completed Bertha Gal[place] [facility] 08/29/2024 11:00:15 COVID-19, mRNA, LNP-S, bivalent, PF, 30 mcg/0.3 mL dose 2 completed Bertha Gal[place] [facility] 08/29/2024 11:00:15 COVID-19, mRNA, LNP-S, PF, 50 mcg/0.5 mL 3 completed [employer] [facility] 08/29/2024 11:00:15 influenza, unspecified formulation 3 completed [employer] [facility] 08/29/2024 11:00:15 influenza, unspecified formulation 2 completed Bertha Galicia [place], [place] [facility] 08/29/2024 11:00:15 influenza, unspecified formulation 8 completed Felizgayathri EZRA Galicia [place], [place] - [facility] 08/29/2024 11:00:15 Td (adult), 2 Lf tetanus toxoid, preservative free, adsorbed 4 completed [employer] [facility] 08/29/2024 11:00:15 Influenza, split virus, trivalent, PF 4 completed [employer], [place] - [facility] 11/28/2024 11:30:44 Past Encounters Encounter ID Performer Location Encounter Start Date Encounter Closed Date Diagnosis/Indication Diagnosis SNOMED-CT Code Diagnosis ICD10 Code Diagnosis Note [id number] Macario Cantu MD [facility] [address] [place] [address] 05/13/2024 16:44:58 05/17/2024 10:25:54 Hypothyroidism 70182811 E03.9 Continue levothyrox ine 100 mcg daily and check updated thyroid function labs. Mixed anxi ety and depressive disorder 519370083 F41.8 Patient is overall stable on Wellbutrin , duloxetine and BuSpar therapy with p.r.n. use of clonazepam Long-term drug therapy 549736916 Z79.899 Routine CBC and CMP are due Skin lesion 46546303 L98 .9 Patient has a dermatolog ist but has not seen them recently. She does have scattered areas of multiple ulcerated type sores and is currently on antibiotic that was sent out for her 7-10 days ago. She is having some improvemen t in lesion healing. Have encouraged the patient to also follow up with her dermatolog ist. Hyperlipidemia 85525074 E78.5 Patient is due for updated fasting lipid panel and refill on fenofibrat e 160 mg daily Migraine 62512356 G43.90 9 Stable on p.r.n. use of sumatripta n 100 mg daily and continue propranolo l 40 mg twice a day for migraine prevention . Postmenopausal state 764 32671 Z78.0 Patient is postmenopa usal and baseline DEXA scan has been ordered. Diabetes m sommeritus screening 838995208 Z13.1 Annual A1c screening is due Vitamin B1 2 deficiency (non anemic) 92889353 E53.8 Patient is due for update a vitamin B12 and folate labs and has a history of a deficiency in both levels. Positive s creening for depression on PHQ-9 (Patient Health Questionnaire 9) 9369264012 13067 Z13.31 Patient scored a 7 on screening today. She does have medication management in place and is feeling stable with that plan. [id number] Macario Cantu MD [facility] [employer] [address] [place] [address] 08/30/2024 10:48:06 08/30/2024 11:35:06 Body mass index 30+ - obesity 298016608 Z68.37 bmi 37.9 Obesity 400218678 E66.9 Obstructiv e sleep apnea syndrome 95324166 G47.33 Patient has not been using her CPAP and 4 years due to missing parts to her machine and now her machine is too old and they can not get parts to it. She needs to get a new updated sleep study. Referral sent Pain of nose 321995994 J 34.89 Patient has had some discomfort in the left side of her nostril. There is no abnormalit y noted but we will empiricall y treat with Bactroban ointment [id number] Macario Cantu MD [facility] [employer] [address] [place] [address] 11/28/2024 11:25:47 11/28/2024 12:42:54 Hypothyroidism 95045832 E03.9 Continue levothyrox ine 100 mcg daily and check updated thyroid function labs. Mixed anxi ety and depressive disorder 991260231 F41.8 Patient is overall stable on Wellbutrin , duloxetine and BuSpar therapy with p.r.n. use of clonazepam Hyperlipidemia 54620909 E78.5 Patient is due for updated fasting lipid panel and refill on fenofibrat e 160 mg daily Migraine 51017130 G43.90 9 Stable on p.r.n. use of sumatripta n 100 mg daily and continue propranolo l 40 mg twice a day for migraine prevention . she has had botox now and that has been helpful Vitamin B1 2 deficiency (non anemic) 08016712 E53.8 Patient is due for update a vitamin B12 and folate labs and has a history of a deficiency in both levels. Long-term drug therapy 676837870 Z79.899 Routine CBC and CMP are due Obstructiv e sleep apnea syndrome 63328323 G47.33 patient is back on her new cpap. she is feeling so much better. she cannot sleepy without it. her fatigue is gone during the day. she is using it 6-8 hours per night. she is adherent and very pleased with results. apnea has not been over 2 per hour now. Diabetes m ellitus screening 963062230 Z13.1 Annual A1c screening is due Pain of bi lateral knee joints 1386989390 76558 M25.561 M25.562 At this time we will encourage weight loss which will help take pressure off the knees. This is just started to be problemati c for her at times she can take over-the-c ounter Tylenol for discomfort days we discussed ordering possible x-ray of the knees in the future. Exercise and movement are recommende d at this time Osteoporosis 54194784 M8 1.0 Start generic Actonel 150 mg once monthly for osteoporos is noted on DEXA scan that was acquired Health Concerns Section Related Observation LastModified by Organization Detai ls LastModified Time None Recorded Concern Status LastModified by Organization Details LastModified Time None Recorded Advance Directives Directive N: Payers Insurance Date Sequence Insurance Name Policy Number Policy Segura Covered Member ID Segura Member ID Guarantor Name 12/05/2024 1 [facility] - DOS ON OR AFTER 21 (MEDICAID REPLACEMENT - HMO) Anna Tayon [id number] Anna Tayon 05/11/2024 1 [facility] - DOS ON OR AFTER 21 (MEDICAID REPLACEMENT - HMO) Anna Tayon [id number] Anna Tayon Notes Date Note Type Note Provider Name and Address Organization Details Recorded Time 4 text/html Anxiety/DepressionReporte d bypatient.Notes:Patient does have underlying anxiety and depression and takes Wellbutrin XL 300 mg daily, duloxetine 60 mg daily and BuSpar 10 mg twice daily.. She also has clonazepam available for p.r.n. use, of which she does generally dose once daily.HyperlipidemiaRepor blossom bypatient.Notes:Patient has underlying hypertriglyceridemia and takes fenofibrate 160 mg daily.ThyroidReported bypatient.Notes:Patient has underlying hypothyroidism and is taking levothyroxine 100 mcg daily and is due for updated labs Migraine history-patient takes p.r.n. sumatriptan 100 mg and also takes propranolol 40 mg twice daily for migraine/headache management. JEANNA Saravia Attn: Accounting,[address] [place], [address], [facility] 05/28/2024 17:51:09 4 text/html Obstructive Sleep Apnea F/UReported bypatient.Quality:worseni ng;gasping for air;witnessed apnea;frequent breathing through the mouth;snoring with apnea Onset/Timing:chronic Duration:continuous Severity:limits daily activities Location:no throat pain; no feeling of tightness in throat Context:lack of adequate sleep;history of sleep disorder;recent weight gain (more than 10 pounds) Alleviating factors:relief with CPAP (but no cpap use in 4 years due to missing parts for machine) Aggravating factors:recent weight gain; worse with excess fatigue Associated Symptoms:morning headache;awakening at night short of breath;excessive sleepiness during the day;irritability Prior Tests:thyroid panel; home sleep study; PSG Prior TreatmentCPAP Prior opinionPCP JEANNA Saravia Attn: Accounting,[address] [place], [address], [facility] 08/30/2024 14:01:45 5 text/html Anxiety/DepressionReporte d bypatient.Notes:Patient does have underlying anxiety and depression and takes Wellbutrin XL 300 mg daily, duloxetine 60 mg daily and BuSpar 10 mg twice daily.. She also has clonazepam available for p.r.n. use, of which she does generally dose once daily.HyperlipidemiaRepor blossom bypatient.Notes:Patient has underlying hypertriglyceridemia and takes fenofibrate 160 mg daily.Obstructive Sleep Apnea F/UReported bypatient.Notes:patient is back on her new cpap. she is feeling so much better. she cannot sleepy without it. her fatigue is gone during the day. she is using it 6-8 hours per night. she is adherent and very pleased with results. apnea has not been over 2 per hour now.ThyroidReported bypatient.Notes:Patient has underlying hypothyroidism and is taking levothyroxine 100 mcg daily and is due for updated labs Migraine history-patient takes p.r.n. sumatriptan 100 mg and also takes propranolol 40 mg twice daily for migraine/headache management. JEANNA Saravia Attn: Accounting[address] [place], [address], [facility] 12/05/2024 09:29:49 OBGyn Episode No OBEpisode recorded.
--- OUTSIDE RECORDS SUMMARY | 2025-05-13 18:58 | XMS_ITS | Data Portability ---
Author Organization [facility] , [facility] Address [address] [place] [address] Assessment No assessment recorded. Plan of Treatment Reminders Order Date Submit Date Provider Last Modified By Organization Details Last Modified Time Details Appointments None recorded. Lab None recorded. Referral None recorded. Procedures None recorded. Surgeries None recorded. Imaging MAMMO, screening, digital, bilateral 2024 025 GINNA Not available 15:16:23 Medication Orders None recorded. Patient TargetsNo targets recorded. Patient Instructions Encounter Date Encounter Id Patient Instructions Last Modified By Organization Details Last Modified Time 04/03/2025 [id number] learning about depression screening bnotzke Not available 04/03/2025 13:24:45 A healthy lifestyle: care instructions bnotzke Not available 04/03/2025 13:24:45 eating healthy foods: care instructions bnotzke Not available 04/03/2025 13:24:46 exercise program : getting started bnotzke Not available 04/03/2025 13:24:45 protect bone wit h calcium and vitamin D bnotzke Not available 04/03/2025 13:24:45 learning about breast cancer screening bnotzke Not available 04/03/2025 13:24:45 mammogram screening patient instructions bnotzke Not available 04/03/2025 13:24:45 mammogram: about this test bnotzke Not available 04/03/2025 13:24:45 Reason for Referral None Reported. Results Created Date Observation Date Name Description Value Unit Range Abnormal Flag Note LastModifiedBy Organization Detail LastModifiedTime 04/26/2004/18/2025 MAMMO , scree yesika, digit al, bilat eral No observ ation [facility] ed[facility] [address] [place], [address], 05/10/2025 17:32:11 05/10/20 25 05/09/2025 MAMMO , aidan napoles, digit al, bilat eral No observ ation record ed. [place]not[place] [id number] [facility], [place], [address], 05/11/2025 16:07:04 Result Notes None recorded. Procedures Surgical History Date Name Laterality Status Provider Name and Address Organization Details Recorded Time 5 Most Recent [facility] 17:31:44 4 Most Recent Bone Density completed [facility] 04/03/2025 11:24:11 3 Date of Last Colonoscopy completed [facility] 04/03/2025 11:36:17 2 Date of Last Pap Smear completed [facility] 04/03/2025 11:34:20 operative procedure on peripheral nerve completed [facility] 04/03/2025 11:36:50 nasal sinus endoscopy completed [facility] 04/03/2025 11:36:59 extraction of cataract completed [facility] 04/03/2025 11:37:17 Imaging Results None recorded. Procedure Notes None recorded. Medical Equipment None Reported. Allergies Allergen ID Allergen Name Allergen Category Reaction Reaction Severity Criticality Documentation Date Start Date Code Code System Note Provider Name and Address Organization Details Recorded Time 556137 meloxicam medicatio n Not available Not available Not available 05/09/2025 67746 RxNorm Devika [facility], [facility] 10:38:21 [id number] moxifloxa kyra medicatio n Not available Not available Not available 05/09/2025 26074 2 [facility] 10:38:24 Medications Name Sig Start Date Stop Date Status Note LastModified by Organization Details LastModified Time doxycycline hyclate 100 mg capsule TAKE 1 CAPSULE BY MOUTH TWICE A DAY 04/03 completed Not Available Not Available Not Available fluconazole 150 mg tablet TAKE 1 TABLET BY MOUTH EVERY OTHER DAY 04/03 completed Not Available Not Available Not Available sumatriptan 100 mg tablet PLEASE SEE ATTACHED FOR DETAILED DIRECTION S 05/09 completed Not Available Not Available Not Available cephalexin 250 mg capsule TAKE 1 CAPSULE BY MOUTH EVERY 6 HOURS FOR 10 DAYS 04/03 completed Not Available Not Available Not Available prednisone 20 mg tablet TAKE 3 TABLETS BY MOUTH DAILY FOR 5 DAYS THEN TAKE 2 TABLETS BY MOUTH DAILY FOR 3 DAYS THEN TAKE 1 TABLET BY MOUTH DAILY FOR 3 DAYS 04/03 completed Not Available Not Available Not Available alendronate 70 mg tablet TAKE 1 TABLET BY MOUTH EVERY WEEK active Not Available Not Available No t Available clonazepam 0.5 mg tablet TAKE 1 TABLET BY MOUTH EVERY DAY NEEDED active Not Available Not Available No t Available sumatriptan 50 mg tablet TAKE 1 TABLET BY MOUTH NEEDED FOR MIGRIANE. MAY REPEAT IN 2 HOURS IF NEEDED. MAX OF 2 TABLETS IN 24 HOURS active Not Available Not Available No t Available sulfamethox azole 800 mg-trimetho prim 160 mg tablet TAKE 1 TABLET BY MOUTH TWICE DAILY FOR 7 DAYS 04/03 completed Not Available Not Available Not Available butalbital- acetaminoph en-caffeine 50 mg-325 mg-40 mg tablet active Not Available Not Available Not Available levothyroxi ne 100 mcg tablet TAKE 1 TABLET BY MOUTH DAILY active Not Available Not Available No t Available propranolol 40 mg tablet TAKE 1 TABLET BY MOUTH TWICE DAILY active Not Available Not Available No t Available nystatin 100,000 unit/gram topical cream APPLY TOPICALLY TO THE AFFECTED AREA TWICE DAILY NEEDED active Not Available Not Available No t Available buspirone 10 mg tablet TAKE 1 TABLET BY MOUTH TWICE DAILY active Not Available Not Available No t Available mupirocin 2 % topical ointment APPLY SMALL AMOUNT TOPICALLY IN EACH NOSTRIL THREE TIMES DAILY 04/03 completed Not Available Not Available Not Available bupropion HCl XL 300 mg 24 hr tablet, extended release TAKE 1 TABLET BY MOUTH DAILY active Not Available Not Available No t Available duloxetine 60 mg capsule,del ayed release TAKE 1 CAPSULE BY MOUTH EVERY DAY active Not Available Not Available No t Available fenofibrate 160 mg tablet TAKE 1 TABLET BY MOUTH EVERY DAY active Not Available Not Available No t Available drospirenon e 3 mg-ethinyl estradiol 0.02 mg tablet TAKE 1 TABLET BY MOUTH EVERY DAY BALDOMEROUNEDSON STALLINGS. SKIP PLACEBOS 05/09 completed Not Available Not Available Not Available Vitals Date Recorded Body height Body mass index (BMI) Body weight Body temperature Systolic And Diastolic Provider Name and Address Organization Details Last Updated DateTime 04/03/2025 157.48 cm 39 kg/m2 50465.1 7 g 97.2 [degF] 118/82 mm[Hg] Devika Alfaro [facility] 11:32:43 Date Recorded Body height Body mass index (BMI) Body weight Body temperature Systolic And Diastolic Provider Name and Address Organization Details Last Updated DateTime 05/09/2025 157.48 cm 38.4 kg/m2 62109.6 8 g 98 [degF] 138/80 mm[Hg] Devika Alfaro [facility] 10:38:05 Social History Question Answer Notes LastModified by Organizat ion Details LastModified Time Tobacco Smoking Status Never Smoker Devika Alfaro [place], [place] [facility] 04/03/2025 11:24:11 Are You Blind Or Do You Have Difficulty Seeing? No [email or web address] Information not available 04/03/2025 Are You Deaf Or Do You Have Serious Difficulty Hearing? No [email or web address] Information not available 04/03/2025 What Type Of Diet Are You Following? REGULAR Information not available 04/03/2025 What Is The Highest Grade Or Level Of School You Have Completed Or The Highest Degree You Have Received? [id number] [email or web address] Information not available 04/03/2025 How Many Children Do You Have? 2 [email or web address] Information not available 04/03/2025 Are There Any Occupational Health Risks Where You Work? No [email or web address] Information not available 04/03/2025 What Is Your Relationship Status? [email or web address] Information not available 04/03/2025 Are You Sexually Active? No [email or web address] Information not available 04/03/2025 Sex: Unknown Functional Status Question Answer Note LastModified by Organizat ion Details LastModified Time Do you use any illicit or recreational drugs? No [email or web address] Information not available 04/03/2025 What is your level of alcohol consumption? None Information not available 04/03/2025 Are you currently employed? Yes [email or web address] Information not available 04/03/2025 What is your exercise level? None [email or web address] Information not available 04/03/2025 Mental Status None recorded. Family History Relationship Description Onset Age of this Age Resolved Age Notes LastModified by Organization Details LastModified Time Unspecified Relation Hypercholest erolemia [email or web address] Not available 04/03 11:24:11 Unspecified Relation Myocardial infarction [email or web address] Not available 12/2024 11:24:11 Unspecified Relation Cerebrovascu lar accident Not available 11:24:11 Unspecified Relation Hypertensive disorder [email or web address] Not available 04/03 11:24:11 Maternal Grandmother Irritable bowel syndrome [email or web address] Not available 04/03 11:24:11 Maternal Grandmother Hypercholest erolemia [email or web address] Not available 04/03 11:24:11 Maternal Grandmother Hypertensive disorder [email or web address] Not available 04/03 11:24:11 Maternal Grandmother Osteoporosis [email or web address] Not availabl e 04/03/2025 11:24:11 Sister Hypercholest erolemia [email or web address] Not available 04/03 11:24:11 Sister Depressive disorder Not available 04/03 11:24:11 Sister Hypertensive disorder [email or web address] Not available 04/03 11:24:11 Maternal Grandfather Hypercholest erolemia [email or web address] Not available 04/03 11:24:11 Maternal Grandfather Myocardial infarction [email or web address] Not available 12/2024 11:24:11 Maternal Grandfather Hypertensive disorder Not available 04/03 11:24:11 Paternal Grandfather Cerebrovascu lar accident [email or web address] Not available 11:24:11 Medical History Condition Response High Blood Pressure Y Hypothyroidism Y Depression Y Incontinence Y Panic Attacks Y Anxiety Disorder Y Shingles Y High Cholesterol Y Osteopenia Y Headaches/migraines Y Chicken Pox Y Osteoporosis Y Gynecological History Statement/Question Response Date of Last Colonoscopy 11/02/2022 Date of last HPV 10/21/2022 Date of LMP 03/26/2013 Most Recent Bone Density 01/12/2024 Date of Last Pap Smear 10/21/2022 Most Recent Mammogram 05/09/2025 Current Control Method None Age at Menarche 12 Obstetrics History GPAL:G 2 P 2 0 0 2 Type Value Full Term 2 Living 2 Total 2 Past Encounters Encounter ID Performer Location Encounter Start Date Encounter Closed Date Diagnosis/Indication Diagnosis SNOMED-CT Code Diagnosis ICD10 Code Diagnosis Note [id number] [facility] [address] [place] [address] 04/03/2025 11:05:20 04/03/2025 15:12:13 Gynecologic examination 41743264 Z01.419 Patient is new to our Practice. She presents today for a gynecologi jony Annual Exam. Patients Past Medical History and Family History reviewed. 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 She is satisfied with her current method, PCP sends refills. Discussed POP or stopping with hx of HTN. Pt has been having hot flashes. She will stop OCP and start supplement for menopause. Recheck s/s in 1 month. Pap History:Wiliam trinh is not due for a pap smear. Records states up to date: 2021 HPV-, NILM. Breast History:Wiliam trinh denies breast symptoms. Education on Breast Self Awareness given.Mamm ogram: Order sent Patient is regularly seen by PCP for preventati ve care: YesCholest remberto screening: Managed by PCPColorec lisa Cancer Screening: Cologuard - PCP manages, up to date Screening for malignant neoplasm of cervix 777011354 Z12.4 ASCCP guidelines reviewed with patient. Pap Hx: No pap collected today. Pt states understand ing and is amenable to POC. Screening mammography of bilateral breasts [id number] 44604 Z12.31 Pt educated on breast cancer screening guidelines , and discussed recommenda tion for scheduling imaging at hospital of her choice. Reviewed recommenda tion to have imaging done at same facility if possible as previous screenings . Pt states understand ing of POC. Depression screening 171 220108 Z13.31 [place] [id number] R23.2 Stopping DENICE due to HTN dx.Startin g supplement for menopause. Will follow up in 1 month. [id number] MIAH TRENT [facility] [address] [place] [address] 05/09/2025 09:39:09 05/09/2025 11:28:37 Menopause finding 911398797 N95.1 Pt stopped DENICE due to HTN. Pt reports she has not had any bleeding. She has not started menopause supplement , states she doesn't feel like she needs it. Health Concerns Section Related Observation LastModified by Organization Detai ls LastModified Time None Recorded Concern Status LastModified by Organization Details LastModified Time None Recorded Advance Directives Directive None Recorded Payers Insurance Date Sequence Insurance Name Policy Number Policy Segura Covered Member ID Segura Member ID Guarantor Name 05/06/2025 1 [facility] - DOS ON OR AFTER 21 (MEDICAID REPLACEMENT - HMO) Anna Bland [id number] Anna Bland Notes Date Note Type Note Provider Name and Address Organization Details Recorded Time 04/03/2025 text/html Annual GYNReport ed bypatient.Menstrual cycle:Normal menses Urinary symptoms:No hematuria; No incontinence Vulva:No genital lesion Vagina:Normal vaginal discharge Breast:No breast pain; No breast lump; No nipple discharge Sexual complaints:No sexual complaints; No pain during intercourse; Normal libido Menopausal Symptoms:No menopausal symptoms; Normal vaginal lubrication Psychological symptoms:No depression; No anxiety; No PMDD Anna is here for an annual wwe. Pt no longer has cycles. She uses bcp's. She states she does not need any refills today. Her last pap was around 10/2022. Pt doesn't know the exact date when she had her last pap. She is utd on mammograms, last done 03/2024. Her PHQ9 screening score is 12. MIAH TRENT [address] [place], [address], [facility] 04/03/2025 13:25:12 05/09/2025 text/html Anna is here t o f/u on discontinuing the OCP medication. Pt states she feels like it helped for the better. She says she has no complaints. GLENIS ALDRICH, [facility]- [address] [facility], [place], [address], [facility] 05/09/2025 10:53:09 OBGyn Episode No OBEpisode recorded.
--- NOTE | 2025-05-13 19:01 | ED_ITS ---
HPI - Extremity Injury (Lower) General Chief Complaint: Extremity Injury, Lower Stated Complaint: rt foot injury Time Seen by Provider: 05/13/25 19:03 Source: patient and RN notes reviewed Mode of arrival: ambulatory Limitations: no limitations History of Present Illness HPI Narrative: 50-year-old female presents concern for right ankle pain. She reports she rolled the ankle today. She reports lateral swelling. Reports pain when she flexes the ankle. She denies decreased strength, sensation, range of motion. She did not take any medications for her symptoms. MD complaint: ankle injury Related Data Home Medications ?Medication ?Instructions ?Recorded ?Confirmed ?Last Taken ?Type bupropion HCl 300 mg 24 hr tablet, mg PO 08/30/23 09/14/23 Unknown History extended release buspirone 10 mg tablet mg 08/30/23 09/14/23 Unknown History clonazepam 0.5 mg tablet mg 08/30/23 09/14/23 Unknown History drospirenone 3 mg-ethinyl tablet 08/30/23 09/14/23 Unknown History estradiol 0.02 mg tablet (Vestura (28)) duloxetine 60 mg capsule,delayed mg PO 08/30/23 09/14/23 Unknown History release fenofibrate 160 mg tablet mg 08/30/23 09/14/23 Unknown History levothyroxine 100 mcg tablet mcg 08/30/23 09/14/23 Unknown History nystatin 100,000 unit/gram topical topical 08/30/23 09/14/23 Unknown History cream propranolol 40 mg tablet mg 08/30/23 09/14/23 Unknown History sumatriptan succinate 100 mg tablet mg PO 08/30/23 09/14/23 Unknown History sdyrotimre-tggdklmkgcgog-ytxqyamu tablet 12/06/23 Unknown History 50 mg-325 mg-40 mg tablet alendronate 70 mg tablet mg PO 05/13/25 Unknown History Allergies Allergy/AdvReac Type Severity Reaction Status Date / Time moxifloxacin Allergy Severe Swelling Verified 05/13/25 18:56 of Lip/Tongue/Throat meloxicam AdvReac Mild CANKER Verified 05/13/25 18:56 SORES Review of Systems Review of Systems: CONSTITUTIONAL: Denies malaise, chills, sweats, or fever. SKIN: Denies rash or itching, open skin, laceration, abrasion, redness, warmth MUSCULOSKELETAL: Reports right ankle pain and swelling NEUROLOGIC: Denies numbness, weakness All systems reviewed & are unremarkable except as noted in HPI and below PMFSH Past Medical History Medical History Anxiety Depression Fracture of lumbar spine Fractured coccyx Hypercholesteremia Hypertension Hypothyroidism Migraines Sleep apnea Social History Social History Smoking status: Never smoker Lack of Transportation: No Lack of Food: Sometimes True Current Housing: I Have Housing Concerned About Future Housing: No Difficulty Paying Gas/Electric Bills: YES Difficulty Paying for Meds: No Currently Unemployed: No Education: High School Diploma/GED Difficulty w/ Childcare or Family Care: No Comments At time of signature, agree with nursing past medical, surgical, social and family history. There is no relevant family history pertinent to the presenting complaint Exam Narrative: GENERAL: Well-appearing, well-nourished, and in no acute distress. HEAD: Normocephalic, atraumatic. EYES: PERRLA, conjunctivae clear NECK: Supple. CHEST: Speaks in full sentences. No respiratory distress. HEART: Regular rate and rhythm. Normal and equal peripheral pulses. EXTREMITIES: Left ankle, foot, digits have grossly normal strength and sensation, grossly normal range of motion. Mild lateral ankle edema without erythema, induration, warmth, or ecchymosis. Normal sensation with sensitivity to light touch and pain. No point tenderness. No open wounds, no skin tenting, no devitalized tissue or atrophy, no trophic changes, no obvious deformity, alignment normal, nearby joints and structures intact. Distal pulses palpable and equal bilaterally, skin warm, dry, pink. Capillary refill less than 3 seconds. SKIN: Warm, dry, no rash. NEURO: Alert and oriented x3. PSYCH: Normal mood and affect Course Course Emergency Course: Patient is aware of diagnosis, understands and agrees to treatment plan. Anticipatory guidance given. Patient agrees to follow-up as directed and is aware of reasons to seek care at the emergency department. Portions of this record may have been created with voice recognition software Level of Care: Express Care Visit Vital Signs Vital signs: Reviewed. MDM - Extremity Injury (Lower) MDM Narrative Medical decision making narrative: The patient was evaluated by myself in the express care. History is obtained from patient who is an independent historian and physical exam was performed.? Available medical records were reviewed at this time. ? Exam findings show no acute concerns or changes; patient is non-toxic appearing and is in no distress. Patient is appropriate for outpatient treatment and follow-up. ? I have evaluated and discussed social determinants of health with the patient that could potentially impact subsequent diagnosis and treatment plans. ? Patients injury and pain is consistent with musculoskeletal etiology. No signs of neurological or vascular compromise on exam. Compartments and tissues are soft without signs of compartment syndrome. Pain is felt appropriate for further evaluation on an outpatient basis. Imaging Data My impression: Images reviewed, interpreted by radiologist, agree, see report. Critical Care Time Critical Care Time Critical Care Time: No Discharge Plan Discharge Clinical Impression: Ankle sprain and strain Patient Disposition: Home Condition: Stable Instructions: Ankle Sprain (ED) Additional Instructions: Avoid activities that cause pain until the pain subsides. Ice to the area 20-30 minutes 4-6 times a day Elevate above heart Elastic wrap as directed for comfort for the next 5-7 days Tylenol for lesser pain Ibuprofen regularly for the next 2-3 days for the inflammation Follow up with your primary care provider if the condition is not improving within 1 week. If the condition worsens with numbness, tingling, decrease sensation with weakness seek treatment in the emergency room immediately. Patient Language: [place] Prescriptions: No Action znxuwribtx-ijlabwemfyumn-fjrb 50-325-40 mg tablet Paxlovid 300 mg (150 mg x 2)-100 mg tablets,dose pack See Rx Instructions .ROUTE .COMPLEX Qty: 30 0RF Rx Instructions: take TWO 150 mg tablets of nirmatrelvir with ONE 100 mg tablet of ritonavir twice daily for 5 days alendronate 70 mg tablet PO sumatriptan succinate 100 mg tablet PO clonazepam 0.5 mg tablet levothyroxine 100 mcg tablet propranolol 40 mg tablet nystatin 100,000 unit/gram cream TOPICAL buspirone 10 mg tablet bupropion HCl 300 mg tablet extended release 24 hr PO duloxetine 60 mg capsule,delayed release(DR/EC) PO fenofibrate 160 mg tablet drospirenone-ethinyl estradiol [Vestura (28)] 3-0.02 mg tablet Follow-up/Referrals: Denise,VLADIMIR Watkins [Primary Care Provider] -
--- OUTSIDE RECORDS SUMMARY | 2025-05-13 19:01 | XMS_ITS ---
Author Organization Unknown Plan of Treatment Description Planned Activity Planned Timing [facility] is a provider organization who partners directly with Health Plans and provides integrated primary care, behavioral health, and social work therapist for an attributed population Letter encounter to patientTelephone encounter Apr 27, 2025Jul 2024 Patient Care team information Name Category Status Period Participants - - Proposed period not known -
[2025-05-13 19:05] VITALS: BP 141/79; PULSE 92; RESP 16; TEMP 36.3; O2SAT 98
== END 2025-05-13 19:52 | disposition home or self-care (01) ==
PROVIDERS: Emergency Provider Nurse Practitioner; PCP Physician Assistant
DX: S93.401A Sprain of unspecified ligament of right ankle, initial encounter (principal); S96.911A Strain of unspecified muscle and tendon at ankle and foot level, right foot, initial encounter; X50.9XXA Other and unspecified overexertion or strenuous movements or postures, initial encounter; I10 Essential (primary) hypertension; E78.00 Pure hypercholesterolemia, unspecified; E03.9 Hypothyroidism, unspecified; F41.9 Anxiety disorder, unspecified; F32.A Depression, unspecified
CPT/HCPCS: 73610; 99213; G0463

== ENCOUNTER 2025-08-19 13:21 | Outpatient (CLI) | payer OTHER, SELFPAY ==
--- NOTE | ~2025-08-19 | MR_ITS ---
EXAMINATION: MR knee LT wo con DATE: 08/19/2025 14:40 INDICATION: Left knee pain. TECHNIQUE: Magnetic resonance imaging (MRI) of the left knee was performed without intravenous contrast. Sequences included axial PD-weighted FS FSE, coronal PD-weighted FSE and PD-weighted FS FSE, sagittal PD-weighted FSE, and sagittal T2-weighted FS FSE. COMPARISON: None. FINDINGS: Medial compartment: Medial meniscus is normal. There is shallow partial-thickness cartilage loss of femoral condyle and tibial condyle. There are tiny osteophytes. Lateral compartment: Lateral meniscus is normal. Lateral compartment cartilage is normal. Patellofemoral compartment: There is shallow partial-thickness cartilage loss of patellar medial and lateral facets and median ridge. There is partial-thickness cartilage loss of trochlea. There are tiny osteophytes. Ligaments and tendons: The anterior and posterior cruciate ligaments are normal. Medial collateral ligament is normal. There are changes of prior sprain of lateral collateral ligament characterized by thickening and increased signal intensity proximally. There is mild patellar tendinopathy. Fluid: There is a small knee joint effusion. There is a small Abrams's cyst. IMPRESSION: 1. Mild chondrosis of medial and patellofemoral compartments. 2. Small knee joint effusion. 3. Small Abrams's cyst. Reviewed, dictated and finalized at location E.
--- OUTSIDE RECORDS SUMMARY | 2025-08-19 13:26 | XMS_ITS | Encounter Summary ---
Author Organization [facility] Address [address] [place] [address] Care Team Providers Care Dip Guider Stoves Name Role Phone June Vo Primary Care Pr ovider Encounter Details Date Type Department Care Team (Late st Contact Info) Description 12/27/2019 Telephone [facility] [address] [place] [address] Thuan Mccormack, [facility] LEAD CONSULTANT [address] [place] [id number] Social History Tobacco Use Types Packs/Day Years Used Date Smoking Tobacco: Never Smokeless Tobacco: Never Alcohol Use Standard Drinks/Week Comments No 0 (1 standard drink = 0.6 oz pur e alcohol) Comments Unknown Sex and Gender Information Value Date Recorded Sex Assigned at Not on file 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
--- OUTSIDE RECORDS SUMMARY | 2025-08-19 13:26 | XMS_ITS | Data Portability ---
Author Organization [employer] That{img} , [facility] Address [address] [place] [address] Assessment No assessment recorded. Plan of Treatment [...] By Organization Details Last Modified Time 04/03/2025 [id number] learning about depression screening [email or web address] Not available [...] bilat eral No observ ation record ed. [facility] [address] [place], [address], 05/10/2025 17:32:11 05/10/20 25 05/09/2025 MAMMO , aidan napoles, digit al, bilat eral No observ ation record ed. [place]not[place] [id number] [facility], [place], [address], 05/11/2025 16:07:04 Result Notes None recorded. Procedures Surgical History Date Name Laterality Status Provider Name and Address Organization Details Recorded Time 5 Most [facility] 17:31:44 4 Most Recent Bone Density completed [facility] 04/03/2025 11:24:11 3 Date of Last Colonoscopy completed [facility] 04/03/2025 11:36:17 2 Date of Last Pap Smear completed [facility] 04/03/2025 11:34:20 operative procedure on peripheral nerve completed [facility] 04/03/2025 11:36:50 nasal sinus endoscopy completed [facility] 04/03/2025 11:36:59 extraction of cataract completed [facility] 04/03/2025 11:37:17 Imaging Results None recorded. Procedure Notes None recorded. Medical Equipment None Reported. Allergies Allergen ID Allergen Name Allergen Category Reaction Reaction Severity Criticality Documentation Date Start Date Code Code System Note Provider Name and Address Organization Details Recorded Time 284063 meloxicam medicatio n Not available Not available Not available 05/09/2025 41353 RxNorm Devika [facility], [facility] [employer] [facility] 5 10:38:21 [id number] moxifloxa kyra medicatio n Not available Not available Not available 05/09/2025 31951 2 [facility] [place] [facility] 10:38:24 Medications Name Sig Start Date Stop [...] Updated DateTime 04/03/2025 157.48 cm 39 kg/m2 90679.1 7 g 97.2 [degF] 118/82 mm[Hg] Devika Alfaro [facility] 11:32:43 Date Recorded Body height Body mass index (BMI) Body weight Body temperature Systolic And Diastolic Provider Name and Address Organization Details Last Updated DateTime 05/09/2025 157.48 cm 38.4 kg/m2 61548.6 8 g 98 [degF] 138/80 mm[Hg] Devika Alfaro [facility] That{img} IV 10:38:05 Social History Question Answer Notes LastModified by Organizat ion Details LastModified Time Tobacco Smoking Status Never Smoker Devika Alfaro [place], [place] [employer] [facility] 04/03/2025 11:24:11 Are You Blind Or Do You Have Difficulty Seeing? No Information not available 04/03/2025 Are You Deaf Or Do You Have Serious Difficulty Hearing? No [email or web address] Information not available 04/03/2025 What Type Of Diet Are You Following? REGULAR [email or web address] Information not available 04/03/2025 What Is The Highest Grade Or Level Of School You Have Completed Or The Highest Degree You Have Received? CU17953-8 Information not available 04/03/2025 How Many Children Do You Have? 2 Information not available 04/03/2025 Are There Any Occupational Health Risks Where You Work? No [email or web address] Information not available 04/03/2025 What Is Your Relationship Status? [email or web address] Information not available 04/03/2025 Are You Sexually Active? No Information not available 04/03/2025 Sex: Unknown Functional Status Question Answer Note LastModified by Organizat ion Details LastModified Time Do you use any illicit or recreational drugs? No [email or web address] Information not available 04/03/2025 What is your level of alcohol consumption? None [email or web address] Information not available 04/03/2025 Are you currently employed? Yes [email or web address] Information not available 04/03/2025 What is your exercise level? None Information not available 04/03/2025 Mental Status None recorded. Family History Relationship Description Onset Age of this Age Resolved Age Notes LastModified by Organization Details LastModified Time Unspecified Relation Hypercholest erolemia [email or web address] Not available 04/03 11:24:11 Unspecified Relation Myocardial infarction [email or web address] Not available 12/2024 11:24:11 Unspecified Relation Cerebrovascu lar accident Not available 11:24:11 Unspecified Relation Hypertensive disorder [email or web address] Not available 04/03 11:24:11 Maternal Grandmother Irritable bowel syndrome [email or web address] Not available 04/03 11:24:11 Maternal Grandmother Hypercholest erolemia [email or web address] Not available 04/03 11:24:11 Maternal Grandmother Hypertensive disorder [email or web address] Not available 04/03 11:24:11 Maternal Grandmother Osteoporosis [email or web address] Not availabl e 04/03/2025 11:24:11 Sister Hypercholest erolemia [email or web address] Not available 04/03 11:24:11 Sister Depressive disorder [email or web address] Not available 04/03 11:24:11 Sister Hypertensive disorder [email or web address] Not available 04/03 11:24:11 Maternal Grandfather Hypercholest erolemia Not available 04/03 11:24:11 Maternal Grandfather Myocardial infarction [email or web address] Not available 12/2024 11:24:11 Maternal Grandfather Hypertensive disorder [email or web address] Not available 04/03 11:24:11 Paternal Grandfather Cerebrovascu lar accident Not available 11:24:11 Medical History Condition Response Anxiety Disorder Y High Blood Pressure Y Shingles Y Depression Y Hypothyroidism Y Incontinence Y High Cholesterol Y Panic Attacks Y Osteopenia Y Headaches/migraines Y Chicken Pox [...] Diagnosis SNOMED-CT Code Diagnosis ICD10 Code Diagnosis IMO Codes Diagnosis Note [id number] [facility] [address] [place] [address] 04/03/2025 11:05:20 04/03/2025 15:12:13 Gynecologic examination [id number] Z01.419 Patient is new to our Practice. She presents today for a gynecologi jony Annual Exam. Patients Past Medical History and Family History reviewed. 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 Pap Hx: No pap collected today. Pt states understand ing and is amenable to POC. Screening mammography of bilateral breasts [id number] 20178 Z12.31 Pt educated on breast cancer screening guidelines , and discussed recommenda tion for scheduling imaging at hospital of her choice. Reviewed recommenda tion to have imaging done at same facility if possible as previous screenings . Pt states understand ing of POC. Depression screening 171 584789 Z13.31 Flushing [id number] R23.2 723703 Stopping DENICE due to HTN dx.Startin g supplement for menopause. Will follow up in 1 month. [id number] GLENIS ALDRICH, [facility] [address] [place] [address] 05/09/2025 09:39:09 05/09/2025 11:28:37 Menopause finding [id number] N95.1 [id number] Pt stopped DENICE due to HTN. Pt [...] Segura Member ID Guarantor Name 05/06/2025 1 [facility] - DOS ON OR AFTER 21 (MEDICAID REPLACEMENT - HMO) Anna Bland [id number] Anna Bland Notes Date Note Type Note Provider Name and Address Organization Details Recorded Time 5 text/html Annual GYNReported by PatientGenitourinary symptomsFor menstrual cycle, patient reportsnormal menses. For urinary symptoms, patient reportsno hematuriaandno incontinence. For vulva, patient reportsno genital lesion. For vagina, patient reportsnormal vaginal discharge.Breast symptomsFor breast, patient reportsno breast pain,no breast lump, andno nipple discharge.Endocrine symptomsFor sexual complaints, patient reportsno sexual complaints,no pain during intercourse, andnormal libido. For menopausal symptoms, patient reportsno menopausal symptomsandnormal vaginal lubrication.Psychological symptomsFor psychological symptoms, patient reportsno depression,no anxiety, andno pmdd.ROS as noted in the HPI Anna is here for an annual wwe. Pt no longer has cycles. She uses bcp's. She states she does not need any refills today. Her last pap was around 10/2022. Pt doesn't know the exact date when she had her last pap. She is utd on mammograms, last done 03/2024. Her PHQ9 screening score is 12. JIMI TRENT [address] [facility], [place], [address], [facility] [employer] [facility] 04/03/2025 13:25:12 5 text/html ROS as noted in the HPI Anna is here to f/u on discontinuing the OCP medication. Pt states she feels like it helped for the better. She says she has no complaints. JIMI TRENT [address] [facility], [place], [address], [facility] [employer] [facility] IV 05/09/2025 10:53:09 OBGyn Episode No OBEpisode recorded.
--- OUTSIDE RECORDS SUMMARY | 2025-08-19 13:26 | XMS_ITS | Clinical Summary ---
Author Organization [facility] Address [address] [place] [address] Care Team Providers Care Classifier Operator Name Role Phone Unavailable Primary Care Provider [...] COVID-19 Vaccine ( - 2023-2 5 season) 2025 Influenza Adult (#1) 2025 08/16/2018 Meningococcal B Vaccine Aged Out No l onger eligible based on patient's age to complete this topic Meningococcal Vaccine Aged Out No siria elaine eligible based on patient's age to complete this topic RSV Immunizations Under 20 Months Aged Out No longer eligible based on patient's age to complete this topic
--- OUTSIDE RECORDS SUMMARY | 2025-08-19 13:26 | XMS_ITS | Data Portability ---
Author Organization GL[facility] SARARd Steele Address [address] [place] [address] Care Team Providers Care Director Of Clinical Services Name Role Phone ARTEM WALTERS Primary Care Provider Unavailab le Assessment Encounter Date Assessment Date Assessment LastModified by Organization Details LastModified Time 05/13/2024 05/13/2024 Mammogram UTD this year cologuard UTD still. Not available 05/13/2024 17:16:41 11/28/2024 11/28/2024 Mammogram UTD this year cologuard UTD still. Not available 11/28/2024 11:37:33 05/30/2025 05/30/2025 Mammogram with gynecology Cologuard negative December 2022 Not available 05/30/2025 11:28:51 Plan of Treatment Reminders Order Date Submit Date Provider Last Modified By Organization Details Last Modified Time Details Appointments ANY 15 2025 10:00A M JEANNA Saravia Not available Not available Not available Lab vitamin D, 25-hydrox y, total, serum 2024 025 [facility], [address], [place], [address], 06/09/2025 11:08:07 HbA1c (hemoglob in A1c), blood 2024 025 [facility], [address], [place], [address], 06/09/2025 11:08:05 insulin, serum 2024 025 [facility], [address], [place], [address], 06/09/2025 11:08:06 CBC w/ auto diff 2024 025 [facility] [address], [place], [address], 06/09/2025 11:08:07 CMP, serum or plasma 2024 025 [facility], [address], [place], [address], 06/09/2025 11:08:03 lipid panel, serum 2024 025 [facility], [address], [place], [address], 06/09/2025 11:08:01 vitamin B12 + folate, serum or blood 2024 025 [facility], [address], [place], [address], 06/09/2025 11:08:04 TSH + free T4, serum 2024 025 [facility], [address], [place], [address], 06/09/2025 11:08:02 vitamin B12 + folate, serum or blood 2024 025 [facility], [address], [place], [address], 12/21/2024 11:08:12 CBC w/ auto diff 2024 025 [facility], [address], [place], [address], 12/21/2024 11:08:14 CMP, serum or plasma 2024 025 [facility], [address], [place], [address], 12/21/2024 11:08:10 HbA1c (hemoglob in A1c), blood 2024 025 [facility], [address], [place], [address], 12/21/2024 11:08:13 TSH + free T4, serum 2024 025 [facility], [address], [place], [address], 12/21/2024 11:08:09 lipid panel, serum 2024 025 [facility], [address], [place], [address], 12/21/2024 11:08:08 vitamin B12 + folate, serum or blood 2023 024 [facility], [address], [place], [address], 05/26/2024 14:37:25 CBC w/ auto diff 2023 024 [facility], [address], [place], [address], 05/26/2024 14:37:26 CMP, serum or plasma 2023 024 [facility], [address], [place], [address], 05/26/2024 14:37:24 HbA1c (hemoglob in A1c), blood 2023 024 [facility], [address], [place], [address], 05/26/2024 14:37:25 TSH + free T4, serum 2023 024 [facility], [address], [place], [address], 05/26/2024 14:37:23 lipid panel, serum 2023 [facility], [address], [place], [address], 05/26/2024 14:37:24 Referral None recorded. Procedures home sleep testing (PROC) - patient has been without cpap 4 years now due to machine not working. Needs new updated sleep study with settings provided. 2023 [facility], [address], [place], [address], 08/31/2024 11:16:02 Surgeries None recorded. Imaging DEXA 2023 [facility] (Imaging), [address], [place], [address], 11/28/2024 11:47:12 Medication Orders omeprazol e 20 mg capsule,d elayed release 2024 025 [facility] #[id number], [address], [place], [id number], 05/30/2025 11:28:53 ibandrona te 150 mg tablet 2024 025 [facility] #[id number], [address], [place], [id number], 12/05/2024 10:45:06 mupirocin 2 % topical ointment 2023 025 [facility] #[id number], [address], [place], [id number], 05/30/2025 11:28:47 fenofibra te 160 mg tablet 2023 024 [facility][id number], [address] [place], [address], 05/13/2024 17:17:52 Patient TargetsNo targets recorded. Patient Instructions Encounter Date Encounter Id Patient Instructions Last Modified By Organization Details Last Modified Time 08/30/2024 [id number] A healthy lifestyle: care instructions Not available 08/30/2024 11:02:11 Reason for Referral None Reported. Results Created Date Observation Date Name Description Value Unit Range Abnormal Flag Note LastModifiedBy Organization Detail LastModifiedTime 05/25/2005/26/2024 TSH+F REE T4 TSH 1.810 uIU/m L 0.450- 4.500 Not Available [facility] ([facility]) [address] [place], [address], 05/26/2024 14:37:23 05/25/20 24 05/26/2024 TSH+F REE T4 T4,free(dire ct) 1.16 NG/dL 0.82-1 .77 Not Available [facility] ([facility]) [address] [place], [address], 05/26/2024 14:37:23 05/25/20 24 05/26/2024 LIPID PANEL cholesterol, total 145 mg/dL 100-19 9 Not Available [facility] ([facility]) [address] [place], [address], 05/26/2024 14:37:24 05/25/20 24 05/26/2024 LIPID PANEL triglyceride s 259 mg/dL 0-149 above high normal Not Available [facility] ([facility]) [address] [place], [address], 05/26/2024 14:37:24 05/25/20 24 05/26/2024 LIPID PANEL HDL cholesterol 37 mg/dL >39 below low normal Not Available [facility] ([facility]) [address] [place], [address], 05/26/2024 14:37:24 05/25/20 24 05/26/2024 LIPID PANEL VLDL cholesterol jony 42 mg/dL 5-40 above high normal Not Available [facility] ([facility]) [address] [place], [address], 05/26/2024 14:37:24 05/25/20 24 05/26/2024 LIPID PANEL LDL chol calc ([facility]) 66 mg/dL 0-99 Not Available [facility] ([facility]) [address] [place], [address], 05/26/2024 14:37:24 05/25/20 24 05/26/2024 COMP. METAB OLIC PANEL (14) glucose 105 mg/dL 70-99 above high normal Not Available [facility] ([facility]) [address] [place], [address], 05/26/2024 14:37:24 05/25/20 24 05/26/2024 COMP. METAB OLIC PANEL (14) BUN 11 mg/dL 6-24 Not Available [facility] ([facility]) [address] [place], [address], 05/26/2024 14:37:24 05/25/20 24 05/26/2024 COMP. METAB OLIC PANEL (14) creatinine 0.53 mg/dL 0.57-1 .00 below low normal Not Available [facility] ([facility]) [address] [place], [address], 05/26/2024 14:37:24 05/25/20 24 05/26/2024 COMP. METAB OLIC PANEL (14) eGFR 113 mL/mi n/1.7 3 >59 Not Available [facility] ([facility]) [address] [place], [address], 05/26/2024 14:37:24 05/25/20 24 05/26/2024 COMP. METAB OLIC PANEL (14) BUN/creatini ne ratio 21 9-23 Not Available [facility] ([facility]) [address] [facility] [address], [place], [address], 05/26/2024 14:37:24 05/25/20 24 05/26/2024 COMP. METAB OLIC PANEL (14) sodium 141 mmol/ L 134-14 4 Not Available [facility] ([facility]) [address] [facility] [address], [place], [address], 05/26/2024 14:37:24 05/25/20 24 05/26/2024 COMP. METAB OLIC PANEL (14) potassium 4.0 mmol/ L 3.5-5. 2 Not Available [facility] ([facility]) [address] [facility] [address], [place], [address], 05/26/2024 14:37:24 05/25/20 24 05/26/2024 COMP. METAB OLIC PANEL (14) chloride 104 mmol/ L 96-106 Not Available [facility] ([facility]) [address] [facility] [address], [place], [address], 05/26/2024 14:37:24 05/25/20 24 05/26/2024 COMP. METAB OLIC PANEL (14) carbon dioxide, total 23 mmol/ L 20-29 Not Available [facility] ([facility]) [address] [facility] [address], [place], [address], 05/26/2024 14:37:24 05/25/20 24 05/26/2024 COMP. METAB OLIC PANEL (14) calcium 8.7 mg/dL 8.7-10 .2 Not Available [facility] ([facility]) [address] [facility] [place], [address], 05/26/2024 14:37:24 05/25/20 24 05/26/2024 COMP. METAB OLIC PANEL (14) protein, total 6.4 g/dL 6.0-8. 5 Not Available [facility] ([facility]) [address], [place], [address], 05/26/2024 14:37:24 05/25/20 24 05/26/2024 COMP. METAB OLIC PANEL (14) albumin 3.7 g/dL 3.9-4. 9 below low normal Not Available [facility] ([facility]) [address], [place], [address], 05/26/2024 14:37:24 05/25/20 24 05/26/2024 COMP. METAB OLIC PANEL (14) globulin, total 2.7 g/dL 1.5-4. 5 Not Available [facility] ([facility]) [address] [place], [address], 05/26/2024 14:37:24 05/25/20 24 05/26/2024 COMP. METAB OLIC PANEL (14) bilirubin, total 0.2 mg/dL 0.0-1. 2 Not Available [facility] ([facility]) [address], [place], [address], 05/26/2024 14:37:24 05/25/20 24 05/26/2024 COMP. METAB OLIC PANEL (14) alkaline phosphatase 69 IU/L 44-121 Not Available [facility] ([facility]) [address] [facility] [address], [place], [address], 05/26/2024 14:37:24 05/25/20 24 05/26/2024 COMP. METAB OLIC PANEL (14) AST (SGOT) 16 IU/L 0-40 Not Available [facility] ([facility]) [address] [facility] [place], [address], 05/26/2024 14:37:24 05/25/20 24 05/26/2024 COMP. METAB OLIC PANEL (14) ALT (SGPT) 14 IU/L 0-32 Not Available [facility] ([facility]) [address] [facility] [place], [address], 05/26/2024 14:37:24 05/25/20 24 05/26/2024 VITAM IN B12 AND FOLAT E vitamin B12 235 pg/mL 232-12 45 Not Available [facility] ([facility]) [address] [facility] [address], [place], [address], 05/26/2024 14:37:25 05/25/20 24 05/26/2024 VITAM IN B12 AND FOLAT E folate (folic acid), serum <2.0 NG/mL >3.0 below low normal Kayla ified by repea t lacie sis A serum folat e mendez ntrat ion of less than 3.1 ng/mL is consi dered to repre sent clini jony defic iency . Not Available [facility] ([facility]) [address] [facility] [address], [place], [address], 05/26/2024 14:37:25 05/25/20 24 05/26/2024 HEMOG LOBIN A1C hemoglobin A1C 5.6 % 4.8-5. 6 Predi abete s: 5.7 - 6.4 Diabe max: >6.4 Glyce estrella contr ol for adult s with diabe max: <7.0 Not Available [facility] ([facility]) [address] [facility] [address], [place], [address], 05/26/2024 14:37:25 05/25/2005/26/2024 CBC WITH DIFFE RENTI AL/PL ATELE T WBC 7.7 x10e3 /uL 3.4-10 .8 Not Available [facility] ([facility]) [address] [place], [address], 05/26/2024 14:37:26 05/25/20 24 05/26/2024 CBC WITH DIFFE RENTI AL/PL ATELE T RBC 4.19 x10e6 /uL 3.77-5 .28 Not Available [facility] ([facility]) [address] [place], [address], 05/26/2024 14:37:26 05/25/20 24 05/26/2024 CBC WITH DIFFE RENTI AL/PL ATELE T hemoglobin 13.2 g/dL 11.1-1 5.9 Not Available [facility] ([facility]) [address] [facility] [address], [place], [address], 05/26/2024 14:37:26 05/25/20 24 05/26/2024 CBC WITH DIFFE RENTI AL/PL ATELE T hematocrit 39.2 % 34.0-4 6.6 Not Available [facility] ([facility]) [address] [place], [address], 05/26/2024 14:37:26 05/25/20 24 05/26/2024 CBC WITH DIFFE RENTI AL/PL ATELE T MCV 94 fL 79-97 Not Available [facility] ([facility]) [address] [facility] [address], [place], [address], 05/26/2024 14:37:26 05/25/20 24 05/26/2024 CBC WITH DIFFE RENTI AL/PL ATELE T MCH 31.5 pg 26.6-3 3.0 Not Available [facility] ([facility]) [address] [place], [address], 05/26/2024 14:37:26 05/25/20 24 05/26/2024 CBC WITH DIFFE RENTI AL/PL ATELE T MCHC 33.7 g/dL 31.5-3 5.7 Not Available [facility] ([facility]) [address] [place], [address], 05/26/2024 14:37:26 05/25/20 24 05/26/2024 CBC WITH DIFFE RENTI AL/PL ATELE T RDW 12.6 % 11.7-1 5.4 Not Available [facility] ([facility]) [address] [place], [address], 05/26/2024 14:37:26 05/25/20 24 05/26/2024 CBC WITH DIFFE RENTI AL/PL ATELE T platelets 321 x10e3 /uL 150-45 0 Not Available [facility] ([facility]) [address] [facility] [address], [place], [address], 05/26/2024 14:37:26 05/25/20 24 05/26/2024 CBC WITH DIFFE RENTI AL/PL ATELE T neutrophils 60 % notest ab. Not Available [facility] ([facility]) [address] [facility] [address], [place], [address], 05/26/2024 14:37:26 05/25/20 24 05/26/2024 CBC WITH DIFFE RENTI AL/PL ATELE T lymphs 31 % notest ab. Not Available [facility] ([facility]) [address] [facility] [address], [place], [address], 05/26/2024 14:37:26 05/25/20 24 05/26/2024 CBC WITH DIFFE RENTI AL/PL ATELE T monocytes 7 % notest ab. Not Available [facility] ([facility]) [address] [facility] [address], [place], [address], 05/26/2024 14:37:26 05/25/20 24 05/26/2024 CBC WITH DIFFE RENTI AL/PL ATELE T eos 2 % notest ab. Not Available [facility] ([facility]) [address] [facility] [address], [place], [address], 05/26/2024 14:37:26 05/25/20 24 05/26/2024 CBC WITH DIFFE RENTI AL/PL ATELE T basos 0 % notest ab. Not Available [facility] ([facility]) [address] [facility] [address], [place], [address], 05/26/2024 14:37:26 05/25/20 24 05/26/2024 CBC WITH DIFFE RENTI AL/PL ATELE T neutrophils (absolute) 4.6 x10e3 /uL 1.4-7. 0 Not Available [facility] ([facility]) [address] [place], [address], 05/26/2024 14:37:26 05/25/20 24 05/26/2024 CBC WITH DIFFE RENTI AL/PL ATELE T lymphs (absolute) 2.4 x10e3 /uL 0.7-3. 1 Not Available [facility] ([facility]) [address] [facility] [address], [place], [address], 05/26/2024 14:37:26 05/25/20 24 05/26/2024 CBC WITH DIFFE RENTI AL/PL ATELE T monocytes(ab solute) 0.5 x10e3 /uL 0.1-0. 9 Not Available [facility] ([facility]) [address] [facility] [address], [place], [address], 05/26/2024 14:37:26 05/25/20 24 05/26/2024 CBC WITH DIFFE RENTI AL/PL ATELE T eos (absolute) 0.1 x10e3 /uL 0.0-0. 4 Not Available [facility] ([facility]) [address] [facility] [address], [place], [address], 05/26/2024 14:37:26 05/25/20 24 05/26/2024 CBC WITH DIFFE RENTI AL/PL ATELE T baso (absolute) 0.0 x10e3 /uL 0.0-0. 2 Not Available [facility] ([facility]) [address] [place], [address], 05/26/2024 14:37:26 05/25/20 24 05/26/2024 CBC WITH DIFFE RENTI AL/PL ATELE T immature granulocytes 0 % notest ab. Not Available [facility] ([facility]) [address] [place], [address], 05/26/2024 14:37:26 05/25/20 24 05/26/2024 CBC WITH DIFFE RENTI AL/PL ATELE T immature grans (abs) 0.0 x10e3 /uL 0.0-0. 1 Not Available [facility] ([facility]) [address] [facility] [address], [place], [address], 05/26/2024 14:37:26 12/14/19 25 12/15/2024 LIPID PANEL W/ CHOL/ HDL RATIO cholesterol, total 120 mg/dL 100-19 9 Not Available [facility] ([facility]) [address] [facility] [address], [place], [address], 12/21/2024 11:08:08 12/14/19 25 12/15/2024 LIPID PANEL W/ CHOL/ HDL RATIO triglyceride s 271 mg/dL 0-149 above high normal Not Available [facility] ([facility]) [address] [facility] [address], [place], [address], 12/21/2024 11:08:08 12/14/19 25 12/15/2024 LIPID PANEL W/ CHOL/ HDL RATIO HDL cholesterol 26 mg/dL >39 below low normal Not Available [facility] ([facility]) [address] [facility] [address], [place], [address], 12/21/2024 11:08:08 12/14/19 25 12/15/2024 LIPID PANEL W/ CHOL/ HDL RATIO VLDL cholesterol jony 43 mg/dL 5-40 above high normal Not Available [facility] ([facility]) [address] [place], [address], 12/21/2024 11:08:08 12/14/19 25 12/15/2024 LIPID PANEL W/ CHOL/ HDL RATIO LDL chol calc ([facility]) 51 mg/dL 0-99 Not Available [facility] ([facility]) [address] [place], [address], 12/21/2024 11:08:08 12/14/19 25 12/15/2024 LIPID PANEL W/ CHOL/ HDL RATIO T. chol/HDL ratio 4.6 ratio 0.0-4. 4 above high normal T. Chol/ HDL Ratio Men Women 1/2 Avg.R isk 3.4 3.3 Avg.R isk 5.0 4.4 2X Avg.R isk 9.6 7.1 3X Avg.R isk 23.4 11.0 Not Available [facility] ([facility]) [address] [place], [address], 12/21/2024 11:08:08 12/14/19 25 12/15/2024 TSH+F REE T4 TSH 2.500 uIU/m L 0.450- 4.500 Not Available [facility] ([facility]) [address] [place], [address], 12/21/2024 11:08:09 12/14/19 25 12/15/2024 TSH+F REE T4 T4,free(dire ct) 1.16 NG/dL 0.82-1 .77 Not Available [facility] ([facility]) [address] [place], [address], 12/21/2024 11:08:09 12/14/19 25 12/15/2024 COMP. METAB OLIC PANEL (14) glucose 94 mg/dL 70-99 Not Available [facility] ([facility]) [address] [place], [address], 12/21/2024 11:08:10 12/14/19 25 12/15/2024 COMP. METAB OLIC PANEL (14) BUN 12 mg/dL 6-24 Not Available [facility] ([facility]) [address] [place], [address], 12/21/2024 11:08:10 12/14/19 25 12/15/2024 COMP. METAB OLIC PANEL (14) creatinine 0.55 mg/dL 0.57-1 .00 below low normal Not Available [facility] ([facility]) [address] [facility] [address], [place], [address], 12/21/2024 11:08:10 12/14/19 25 12/15/2024 COMP. METAB OLIC PANEL (14) eGFR 112 mL/mi n/1.7 3 >59 Not Available [facility] ([facility]) [address], [place], [address], 12/21/2024 11:08:10 12/14/19 25 12/15/2024 COMP. METAB OLIC PANEL (14) BUN/creatini ne ratio 22 9-23 Not Available [facility] ([facility]) [address] [facility], [place], [address], 12/21/2024 11:08:10 12/14/19 25 12/15/2024 COMP. METAB OLIC PANEL (14) sodium 141 mmol/ L 134-14 4 Not Available [facility] ([facility]) [address] [facility], [place], [address], 12/21/2024 11:08:10 12/14/19 25 12/15/2024 COMP. METAB OLIC PANEL (14) potassium 4.2 mmol/ L 3.5-5. 2 Not Available [facility] ([facility]) [address] [facility], [place], [address], 12/21/2024 11:08:10 12/14/19 25 12/15/2024 COMP. METAB OLIC PANEL (14) chloride 104 mmol/ L 96-106 Not Available [facility] ([facility]) [address] [facility], [place], [address], 12/21/2024 11:08:10 12/14/19 25 12/15/2024 COMP. METAB OLIC PANEL (14) carbon dioxide, total 21 mmol/ L 20-29 Not Available [facility] ([facility]) [address] [facility], [place], [address], 12/21/2024 11:08:10 12/14/19 25 12/15/2024 COMP. METAB OLIC PANEL (14) calcium 9.0 mg/dL 8.7-10 .2 Not Available [facility] ([facility]) [address] [facility] [address], [place], [address], 12/21/2024 11:08:10 12/14/19 25 12/15/2024 COMP. METAB OLIC PANEL (14) protein, total 6.7 g/dL 6.0-8. 5 Not Available [facility] ([facility]) [address] [facility], [place], [address], 12/21/2024 11:08:10 12/14/19 25 12/15/2024 COMP. METAB OLIC PANEL (14) albumin 4.0 g/dL 3.9-4. 9 Not Available [facility] ([facility]) [address] [facility], [place], [address], 12/21/2024 11:08:10 12/14/19 25 12/15/2024 COMP. METAB OLIC PANEL (14) globulin, total 2.7 g/dL 1.5-4. 5 Not Available [facility] ([facility]) [address] [facility], [place], [address], 12/21/2024 11:08:10 12/14/19 25 12/15/2024 COMP. METAB OLIC PANEL (14) bilirubin, total 0.2 mg/dL 0.0-1. 2 Not Available [facility] ([facility]) [address] [facility], [place], [address], 12/21/2024 11:08:10 12/14/19 25 12/15/2024 COMP. METAB OLIC PANEL (14) alkaline phosphatase 62 IU/L 44-121 Not Available [facility] ([facility]) [address] [facility], [place], [address], 12/21/2024 11:08:10 12/14/19 25 12/15/2024 COMP. METAB OLIC PANEL (14) AST (SGOT) 36 IU/L 0-40 Not Available [facility] ([facility]) [address] [facility] [place], [address], 12/21/2024 11:08:10 12/14/19 25 12/15/2024 COMP. METAB OLIC PANEL (14) ALT (SGPT) 25 IU/L 0-32 Not Available [facility] ([facility]) [address] [facility] [place], [address], 12/21/2024 11:08:10 12/14/19 25 12/17/2024 HOMOC Y+MET HYL homocyst(E)i ne 13.1 umol/ L 0.0-14 .5 Not Available [facility] ([facility]) [address] [place], [address], 12/21/2024 11:08:11 12/14/19 25 12/21/2024 HOMOC Y+MET HYL methylmaloni c acid, serum 120 nmol/ L 0-378 Not Available [facility] ([facility]) [address] [place], [address], 12/21/2024 11:08:11 12/14/19 25 12/15/2024 VITAM IN B12+F OLATE vitamin B12 293 pg/mL 232-12 45 Not Available [facility] ([facility]) [address] [place], [address], 12/21/2024 11:08:12 12/14/19 25 12/15/2024 VITAM IN B12+F OLATE folate (folic acid), serum 3.4 NG/mL >3.0 A serum folat e mendez ntrat ion of less than 3.1 ng/mL is consi dered to repre sent clini jony defic iency . Not Available [facility] ([facility]) [address] [place], [address], 12/21/2024 11:08:12 12/14/19 25 12/14/2024 HEMOG LOBIN A1C hemoglobin A1C 6.0 % 4.8-5. 6 above high normal Predi abete s: 5.7 - 6.4 Diabe max: >6.4 Glyce estrella contr ol for adult s with diabe max: <7.0 Not Available [facility] ([facility]) [address] [facility], [place], [address], 12/21/2024 11:08:13 12/14/19 25 12/14/2024 CBC WITH DIFFE RENTI AL/PL ATELE T WBC 4.1 x10e3 /uL 3.4-10 .8 Not Available [facility] ([facility]) [address] [facility], [place], [address], 12/21/2024 11:08:14 12/14/19 25 12/14/2024 CBC WITH DIFFE RENTI AL/PL ATELE T RBC 4.33 x10e6 /uL 3.77-5 .28 Not Available [facility] ([facility]) [address] [facility], [place], [address], 12/21/2024 11:08:14 12/14/19 25 12/14/2024 CBC WITH DIFFE RENTI AL/PL ATELE T hemoglobin 13.6 g/dL 11.1-1 5.9 Not Available [facility] ([facility]) [address] [facility], [place], [address], 12/21/2024 11:08:14 12/14/19 25 12/14/2024 CBC WITH DIFFE RENTI AL/PL ATELE T hematocrit 41.0 % 34.0-4 6.6 Not Available [facility] ([facility]) [address] [place], [address], 12/21/2024 11:08:14 12/14/19 25 12/14/2024 CBC WITH DIFFE RENTI AL/PL ATELE T MCV 95 fL 79-97 Not Available [facility] ([facility]) [address] [facility] [address], [place], [address], 12/21/2024 11:08:14 12/14/19 25 12/14/2024 CBC WITH DIFFE RENTI AL/PL ATELE T MCH 31.4 pg 26.6-3 3.0 Not Available [facility] ([facility]) [address] [facility] [address], [place], [address], 12/21/2024 11:08:14 12/14/19 25 12/14/2024 CBC WITH DIFFE RENTI AL/PL ATELE T MCHC 33.2 g/dL 31.5-3 5.7 Not Available [facility] ([facility]) [address] [facility] [address], [place], [address], 12/21/2024 11:08:14 12/14/19 25 12/14/2024 CBC WITH DIFFE RENTI AL/PL ATELE T RDW 12.4 % 11.7-1 5.4 Not Available [facility] ([facility]) [address] [facility] [address], [place], [address], 12/21/2024 11:08:14 12/14/19 25 12/14/2024 CBC WITH DIFFE RENTI AL/PL ATELE T platelets 336 x10e3 /uL 150-45 0 Not Available [facility] ([facility]) [address] [place], [address], 12/21/2024 11:08:14 12/14/19 25 12/14/2024 CBC WITH DIFFE RENTI AL/PL ATELE T neutrophils 49 % notest ab. Not Available [facility] ([facility]) [address] [place], [address], 12/21/2024 11:08:14 12/14/19 25 12/14/2024 CBC WITH DIFFE RENTI AL/PL ATELE T lymphs 31 % notest ab. Not Available [facility] ([facility]) [address] [facility] [address], [place], [address], 12/21/2024 11:08:14 12/14/19 25 12/14/2024 CBC WITH DIFFE RENTI AL/PL ATELE T monocytes 15 % notest ab. Not Available [facility] ([facility]) [address] [facility] [address], [place], [address], 12/21/2024 11:08:14 12/14/19 25 12/14/2024 CBC WITH DIFFE RENTI AL/PL ATELE T eos 3 % notest ab. Not Available [facility] ([facility]) [address] [facility] [address], [place], [address], 12/21/2024 11:08:14 12/14/19 25 12/14/2024 CBC WITH DIFFE RENTI AL/PL ATELE T basos 1 % notest ab. Not Available [facility] ([facility]) [address] [facility] [address], [place], [address], 12/21/2024 11:08:14 12/14/19 25 12/14/2024 CBC WITH DIFFE RENTI AL/PL ATELE T neutrophils (absolute) 2.1 x10e3 /uL 1.4-7. 0 Not Available [facility] ([facility]) [address] [place], [address], 12/21/2024 11:08:14 12/14/19 25 12/14/2024 CBC WITH DIFFE RENTI AL/PL ATELE T lymphs (absolute) 1.3 x10e3 /uL 0.7-3. 1 Not Available [facility] ([facility]) [address] [place], [address], 12/21/2024 11:08:14 12/14/19 25 12/14/2024 CBC WITH DIFFE RENTI AL/PL ATELE T monocytes(ab solute) 0.6 x10e3 /uL 0.1-0. 9 Not Available [facility] ([facility]) [address] [facility] [address], [place], [address], 12/21/2024 11:08:14 12/14/19 25 12/14/2024 CBC WITH DIFFE RENTI AL/PL ATELE T eos (absolute) 0.1 x10e3 /uL 0.0-0. 4 Not Available [facility] ([facility]) [address] [facility] [address], [place], [address], 12/21/2024 11:08:14 12/14/19 25 12/14/2024 CBC WITH DIFFE RENTI AL/PL ATELE T baso (absolute) 0.0 x10e3 /uL 0.0-0. 2 Not Available [facility] ([facility]) [address] [facility] [address], [place], [address], 12/21/2024 11:08:14 12/14/19 25 12/14/2024 CBC WITH DIFFE RENTI AL/PL ATELE T immature granulocytes 1 % notest ab. Not Available [facility] ([facility]) [address] [facility] [address], [place], [address], 12/21/2024 11:08:14 12/14/19 25 12/14/2024 CBC WITH DIFFE RENTI AL/PL ATELE T immature grans (abs) 0.0 x10e3 /uL 0.0-0. 1 Not Available [facility] ([facility]) [address] [facility] [address], [place], [address], 12/21/2024 11:08:14 06/08/20 25 06/09/2025 LIPID PANEL W/ CHOL/ HDL RATIO cholesterol, total 183 mg/dL 100-19 9 Not Available [facility] ([facility]) [address] [place], [address], 06/09/2025 11:08:01 06/08/20 25 06/09/2025 LIPID PANEL W/ CHOL/ HDL RATIO triglyceride s 172 mg/dL 0-149 above high normal Not Available [facility] ([facility]) [address] [place], [address], 06/09/2025 11:08:01 06/08/20 25 06/09/2025 LIPID PANEL W/ CHOL/ HDL RATIO HDL cholesterol 33 mg/dL >39 below low normal Not Available [facility] ([facility]) [address] [place], [address], 06/09/2025 11:08:01 06/08/20 25 06/09/2025 LIPID PANEL W/ CHOL/ HDL RATIO VLDL cholesterol jony 31 mg/dL 5-40 Not Available [facility] ([facility]) [address] [place], [address], 06/09/2025 11:08:01 06/08/20 25 06/09/2025 LIPID PANEL W/ CHOL/ HDL RATIO LDL chol calc ([facility]) 119 mg/dL 0-99 above high normal Not Available [facility] ([facility]) [address] [facility] [address], [place], [address], 06/09/2025 11:08:01 06/08/20 25 06/09/2025 LIPID PANEL W/ CHOL/ HDL RATIO T. chol/HDL ratio 5.5 ratio 0.0-4. 4 above high normal T. Chol/ HDL Ratio Men Women 1/2 Avg.R isk 3.4 3.3 Avg.R isk 5.0 4.4 2X Avg.R isk 9.6 7.1 3X Avg.R isk 23.4 11.0 Not Available [facility] ([facility]) [address] [place], [address], 06/09/2025 11:08:01 06/08/20 25 06/09/2025 TSH+F REE T4 TSH 1.240 uIU/m L 0.450- 4.500 Not Available [facility] ([facility]) [address] [place], [address], 06/09/2025 11:08:02 06/08/20 25 06/09/2025 TSH+F REE T4 T4,free(dire ct) 1.09 NG/dL 0.82-1 .77 Not Available [facility] ([facility]) [address] [place], [address], 06/09/2025 11:08:02 06/08/20 25 06/09/2025 COMP. METAB OLIC PANEL (14) glucose 107 mg/dL 70-99 above high normal Not Available [facility] ([facility]) [address] [place], [address], 06/09/2025 11:08:03 06/08/20 25 06/09/2025 COMP. METAB OLIC PANEL (14) BUN 9 mg/dL 6-24 Not Available [facility] ([facility]) [address] [place], [address], 06/09/2025 11:08:03 06/08/20 25 06/09/2025 COMP. METAB OLIC PANEL (14) creatinine 0.56 mg/dL 0.57-1 .00 below low normal Not Available [facility] ([facility]) [address] [place], [address], 06/09/2025 11:08:03 06/08/20 25 06/09/2025 COMP. METAB OLIC PANEL (14) eGFR 110 mL/mi n/1.7 3 >59 Not Available [facility] ([facility]) [address] [place], [address], 06/09/2025 11:08:03 06/08/20 25 06/09/2025 COMP. METAB OLIC PANEL (14) BUN/creatini ne ratio 16 9-23 Not Available [facility] ([facility]) [address] [place], [address], 06/09/2025 11:08:03 06/08/20 25 06/09/2025 COMP. METAB OLIC PANEL (14) sodium 142 mmol/ L 134-14 4 Not Available [facility] ([facility]) [address] [facility] [place], [address], 06/09/2025 11:08:03 06/08/20 25 06/09/2025 COMP. METAB OLIC PANEL (14) potassium 4.2 mmol/ L 3.5-5. 2 Not Available [facility] ([facility]) [address] [facility] [place], [address], 06/09/2025 11:08:03 06/08/20 25 06/09/2025 COMP. METAB OLIC PANEL (14) chloride 103 mmol/ L 96-106 Not Available [facility] ([facility]) [address] [facility] [place], [address], 06/09/2025 11:08:03 06/08/20 25 06/09/2025 COMP. METAB OLIC PANEL (14) carbon dioxide, total 22 mmol/ L 20-29 Not Available [facility] ([facility]) [address] [facility] [place], [address], 06/09/2025 11:08:03 06/08/20 25 06/09/2025 COMP. METAB OLIC PANEL (14) calcium 9.2 mg/dL 8.7-10 .2 Not Available [facility] ([facility]) [address] [facility] [place], [address], 06/09/2025 11:08:03 06/08/20 25 06/09/2025 COMP. METAB OLIC PANEL (14) protein, total 6.7 g/dL 6.0-8. 5 Not Available [facility] ([facility]) [address] [facility] [place], [address], 06/09/2025 11:08:03 06/08/20 25 06/09/2025 COMP. METAB OLIC PANEL (14) albumin 4.3 g/dL 3.8-4. 9 Not Available [facility] ([facility]) [address] [facility] [place], [address], 06/09/2025 11:08:03 06/08/20 25 06/09/2025 COMP. METAB OLIC PANEL (14) globulin, total 2.4 g/dL 1.5-4. 5 Not Available [facility] ([facility]) [address] [facility] [place], [address], 06/09/2025 11:08:03 06/08/20 25 06/09/2025 COMP. METAB OLIC PANEL (14) bilirubin, total 0.3 mg/dL 0.0-1. 2 Not Available [facility] ([facility]) [address] [facility] [place], [address], 06/09/2025 11:08:03 06/08/20 25 06/09/2025 COMP. METAB OLIC PANEL (14) alkaline phosphatase 67 IU/L 44-121 Not Available [facility] ([facility]) [address] [facility] [place], [address], 06/09/2025 11:08:03 06/08/20 25 06/09/2025 COMP. METAB OLIC PANEL (14) AST (SGOT) 49 IU/L 0-40 above high normal Not Available [facility] ([facility]) [address] [facility] [place], [address], 06/09/2025 11:08:03 06/08/20 25 06/09/2025 COMP. METAB OLIC PANEL (14) ALT (SGPT) 65 IU/L 0-32 above high normal Not Available [facility] ([facility]) [address] [facility] [place], [address], 06/09/2025 11:08:03 06/08/20 25 06/09/2025 VITAM IN B12+F OLATE vitamin B12 632 pg/mL 232-12 45 Not Available [facility] ([facility]) [address] [place], [address], 06/09/2025 11:08:04 06/08/20 25 06/09/2025 VITAM IN B12+F OLATE folate (folic acid), serum 2.7 NG/mL >3.0 below low normal A serum folat e mendez ntrat ion of less than 3.1 ng/mL is consi dered to repre sent clini jony defic iency . Not Available [facility] ([facility]) [address] [facility] [address], [place], [address], 06/09/2025 11:08:04 06/08/20 25 06/09/2025 HEMOG LOBIN A1C hemoglobin A1C 5.5 % 4.8-5. 6 Predi abete s: 5.7 - 6.4 Diabe max: >6.4 Glyce estrella contr ol for adult s with diabe max: <7.0 Not Available [facility] ([facility]) [address] [facility] [address], [place], [address], 06/09/2025 11:08:05 06/08/20 25 06/09/2025 INSUL IN insulin 45.3 uIU/m L 2.6-24 .9 above high normal Not Available [facility] ([facility]) [address] [facility], [place], [address], 06/09/2025 11:08:06 06/08/20 25 06/09/2025 CBC WITH DIFFE RENTI AL/PL ATELE T WBC 5.9 x10e3 /uL 3.4-10 .8 Not Available [facility] ([facility]) [address] [facility], [place], [address], 06/09/2025 11:08:06 06/08/20 25 06/09/2025 CBC WITH DIFFE RENTI AL/PL ATELE T RBC 4.26 x10e6 /uL 3.77-5 .28 Not Available [facility] ([facility]) [address] [place], [address], 06/09/2025 11:08:06 08/07/20 25 06/09/2025 CBC WITH DIFFE RENTI AL/PL ATELE T hemoglobin 13.7 g/dL 11.1-1 5.9 Not Available [facility] ([facility]) [address] [facility], [place], [address], 06/09/2025 11:08:06 06/08/20 25 06/09/2025 CBC WITH DIFFE RENTI AL/PL ATELE T hematocrit 41.8 % 34.0-4 6.6 Not Available [facility] ([facility]) [address] [facility], [place], [address], 06/09/2025 11:08:06 06/08/20 25 06/09/2025 CBC WITH DIFFE RENTI AL/PL ATELE T MCV 98 fL 79-97 above high normal Not Available [facility] ([facility]) [address] [facility], [place], [address], 06/09/2025 11:08:06 06/08/20 25 06/09/2025 CBC WITH DIFFE RENTI AL/PL ATELE T MCH 32.2 pg 26.6-3 3.0 Not Available [facility] ([facility]) [address] [facility], [place], [address], 06/09/2025 11:08:06 06/08/20 25 06/09/2025 CBC WITH DIFFE RENTI AL/PL ATELE T MCHC 32.8 g/dL 31.5-3 5.7 Not Available [facility] ([facility]) [address] [place], [address], 06/09/2025 11:08:06 06/08/20 25 06/09/2025 CBC WITH DIFFE RENTI AL/PL ATELE T RDW 13.1 % 11.7-1 5.4 Not Available [facility] ([facility]) [address] [place], [address], 06/09/2025 11:08:06 08/07/20 25 06/09/2025 CBC WITH DIFFE RENTI AL/PL ATELE T platelets 289 x10e3 /uL 150-45 0 Not Available [facility] ([facility]) [address] [facility], [place], [address], 06/09/2025 11:08:06 06/08/20 25 06/09/2025 CBC WITH DIFFE RENTI AL/PL ATELE T neutrophils 56 % notest ab. Not Available [facility] ([facility]) [address] [facility], [place], [address], 06/09/2025 11:08:06 06/08/20 25 06/09/2025 CBC WITH DIFFE RENTI AL/PL ATELE T lymphs 32 % notest ab. Not Available [facility] ([facility]) [address] [facility], [place], [address], 06/09/2025 11:08:06 06/08/20 25 06/09/2025 CBC WITH DIFFE RENTI AL/PL ATELE T monocytes 9 % notest ab. Not Available [facility] ([facility]) [address] [facility], [place], [address], 06/09/2025 11:08:06 06/08/20 25 06/09/2025 CBC WITH DIFFE RENTI AL/PL ATELE T eos 2 % notest ab. Not Available [facility] ([facility]) [address] [facility], [place], [address], 06/09/2025 11:08:06 06/08/20 25 06/09/2025 CBC WITH DIFFE RENTI AL/PL ATELE T basos 1 % notest ab. Not Available [facility] ([facility]) [address] [facility], [place], [address], 06/09/2025 11:08:06 06/08/20 25 06/09/2025 CBC WITH DIFFE RENTI AL/PL ATELE T neutrophils (absolute) 3.3 x10e3 /uL 1.4-7. 0 Not Available [facility] ([facility]) [address] [facility], [place], [address], 06/09/2025 11:08:06 06/08/20 25 06/09/2025 CBC WITH DIFFE RENTI AL/PL ATELE T lymphs (absolute) 1.9 x10e3 /uL 0.7-3. 1 Not Available [facility] ([facility]) [address] [facility], [place], [address], 06/09/2025 11:08:06 06/08/20 25 06/09/2025 CBC WITH DIFFE RENTI AL/PL ATELE T monocytes(ab solute) 0.5 x10e3 /uL 0.1-0. 9 Not Available [facility] ([facility]) [address] [facility], [place], [address], 06/09/2025 11:08:06 06/08/20 25 06/09/2025 CBC WITH DIFFE RENTI AL/PL ATELE T eos (absolute) 0.1 x10e3 /uL 0.0-0. 4 Not Available [facility] ([facility]) [address] [facility], [place], [address], 06/09/2025 11:08:06 06/08/20 25 06/09/2025 CBC WITH DIFFE RENTI AL/PL ATELE T baso (absolute) 0.0 x10e3 /uL 0.0-0. 2 Not Available [facility] ([facility]) [address] [facility], [place], [address], 06/09/2025 11:08:06 06/08/20 25 06/09/2025 CBC WITH DIFFE RENTI AL/PL ATELE T immature granulocytes 0 % notest ab. Not Available [facility] ([facility]) [address] [facility], [place], [address], 06/09/2025 11:08:06 06/08/20 25 06/09/2025 CBC WITH DIFFE RENTI AL/PL ATELE T immature grans (abs) 0.0 x10e3 /uL 0.0-0. 1 Not Available [facility] ([facility]) [address] [facility], [place], [address], 06/09/2025 11:08:06 06/08/20 25 06/09/2025 VITAM IN D, 25-HY DROXY vitamin D, 25-hydroxy 8.3 NG/mL 30.0-1 00.0 below low normal Vitam in D defic iency has been defin ed by the Insti tute of Medic ine and an Endoc rine Socie ty pract ice guide line as a level of serum 25-OH vitam in D less than 20 ng/mL (1,2) . The Endoc rine Socie ty went on to furth er defin e vitam in D insuf ficie ncy as a level betwe en 21 and 29 ng/mL (2). 1. IOM (Inst itute of Medic ine). 2009. Dieta ry refer ence intak es for calci um and D. Wandy forbes [place]: The Natio nal [facility] Press . 2. Demond carrera MF, Aron canales [place], Bren off-F errar i RANDALL, et al. Evalu ation , treat ment, and preve ntion of vitam in D defic iency : an Endoc rine Socie ty clini jony pract ice guide line. JCEM. 2010; 96(7) :1911 -30. Not Available [facility] ([facility]) [address] [facility], [place], [address], 06/09/2025 11:08:07 09/26/20 24 09/07/2024 polys omnog long , split night (PROC ) No observ ation record ed. [facility] [address] [place], [address], 09/27/2024 16:02:26 09/27/20 24 09/07/2024 polys omnog long , split night (PROC ) No observ ation record ed. [address] [facility] [address], [place], [address], 11/28/2024 11:41:52 11/28/19 25 11/14/2024 DEXA No observ ation record ed. [facility] [address], [place], [address], 11/28/2024 17:27:58 05/14/20 25 05/13/2025 XR, ankle , 2 view No observ ation record ed. [address] [facility] [address], [place], [address], 05/14/2025 09:09:36 06/05/20 25 05/09/2025 MAMMO , scree yesika, digit al, bilat eral No observ ation record ed. [facility] [address] [place], [address], 06/05/2025 15:32:15 06/08/20 25 06/08/2025 XR, knee, 1 or 2 view No observ ation record ed. [facility] [address] [place], [address], 06/13/2025 15:46:39 06/14/20 25 06/14/2025 US, liver No observ ation record ed. [facility] [address] [place], [address], 06/14/2025 14:05:08 Result Notes None recorded. Problems Name Problem SNOMED Code Status Onset Date Resolution Date Notes Provider Name and Address Organization Details Recorded Time Mixed anxiety and depressive disorder 883887709 Active 2023 GLENN Thompson - [facility] 4 13:06:46 Hypothyroid ism 78222244 Active 2023 GLENN Thompson - [facility] 4 13:06:56 Hyperlipide vincent 28932220 Active 2023 JEANNA Saravia Attn: Accountin g,[address] [facility], [place], [address], [place] - [facility] 4 17:04:46 Migraine 26699518 Active 2023 JEANNA Saravia Attn: Accountin g,[address] [facility], [place], [address], [place] [facility] 4 17:04:48 Skin lesion 71671807 Active 2023 JEANNA Saravia Attn: Accountin g,[address] [facility], [place], [address], [place] [facility] 4 17:04:53 Long-term drug therapy Active 2023 JEANNA Saravia Attn: Accountin g,[address] [facility], [place], [address], [place] [facility] 4 17:04:54 Vitamin B12 deficiency (non anemic) 24364394 Active 2023 JEANNA Saravia Attn: Accountin g,[address] [facility], [place], [address], [place] - [facility] 4 17:49:26 Positive screening for depression on PHQ-9 (Patient Health Questionnai re 9) 4139520908282 00 Active 2023 JEANNA Saravia Attn: Accountin g,[address] [facility], [place], [address], [place] [facility] 5 23:22:10 Body mass index 30+ - obesity 512332363 Active 2023 Bertha Galicia MA null, [place] - [facility] 4 10:53:21 Obesity 459090699 Active 2023 JEANNA Saravia Attn: Accountin g,[address] [facility], [place], [address], [place] - [facility] 4 11:02:08 Obstructive sleep apnea syndrome 07518262 Active 2023 JEANNA Saravia Attn: Supa klein,[address] [facility], [place], [address], [place] - [facility] 4 11:03:14 Pain of bilateral knee joints 1261650258935 04 Active 2024 JEANNA Saravia Attn: Supa klein,[address] [place], [address], [place] - [facility] 5 09:29:13 Osteoporosi s 13288764 Active 2024 JEANNA Saravia Attn: Supa klein,[address] [place], [address], [place] - [facility] 5 09:29:29 Prediabetes 686134197 Active 2024 JEANNA Saravia Attn: Supa klein,[address] [place], [address], [place] - [facility] 5 23:21:58 Severe obesity 6219881352298 4 Active 2024 JEANNA Saravia Attn: Supa klein,[address] [place], [address], [facility] - [facility] 5 23:22:11 Gastroesoph ageal reflux disease without esophagitis 156740216 Active 2024 JEANNA Saravia Attn: Supa klein,[address] [place], [address], [place] - [facility] 5 23:22:42 Problem Notes None recorded. Procedures Surgical History Date Name Laterality Status Provider Name and Address Organization Details Recorded Time Eye Surgery completed Bertha sales MA [place] - [facility] 05/13/2024 12:01:42 Imaging Results None recorded. Procedure Notes None recorded. Medical Equipment None Reported. Allergies Allergen ID Allergen Name Allergen Category Reaction Reaction Severity Criticality Documentation Date Start Date Code Code System Note Provider Name and Address Organization Details Recorded Time 108504 meloxicam medicatio n Not available Not available Not available 05/13/2024 55247 RxNorm Bertha Galicia MA null, [place] - [facility] 4 12:00:58 Medications Name Sig Start Date [...] completed Not Available Not Available Not Available atorvastati n 10 mg tablet TAKE 1 TABLET BY MOUTH EVERY DAY active Not Available Not Available No t Available fluconazole 150 mg tablet TAKE 1 TABLET BY MOUTH EVERY OTHER DAY 11/28 completed Not Available Not Available Not Available sumatriptan 100 mg tablet PLEASE SEE ATTACHED FOR DETAILED DIRECTION S 05/30 completed Not Available Not Available Not Available [...] take 1/2 tablet daily for 2 days 05/30 completed Not Available Not Available Not Available [...] BY MOUTH TWICE DAILY FOR 7 DAYS 05/30 completed Not Available Not Available Not Available acetaminoph en 500 mg tablet 500 MG ORALLY EVERY 6 HOURS NEEDED FOR PAIN FOR 30 DAYS 05/13 completed Not Available Not Available Not Available butalbital- acetaminoph en-caffeine 50 mg-325 mg-40 mg tablet TAKE 1 TABLET BY MOUTH EVERY 6 HOURS NEEDED FOR HEADACHE active Not Available Not Available No t [...] Available omeprazole 20 mg capsule,del ayed release TAKE 1 CAPSULE BY MOUTH EVERY DAY active Not Available Not Available No t Available folic acid 1 mg tablet active Not Available Not Available Not Available mupirocin 2 % topical ointment APPLY SMALL AMOUNT TOPICALLY IN EACH NOSTRIL THREE TIMES DAILY 05/30 completed Not Available Not Available Not Available ergocalcife rol (vitamin D2) 1,250 mcg (50,000 unit) capsule TAKE 1 CAPSULE BY MOUTH EVERY WEEK active Not Available [...] MOUTH EVERY DAY CONTUNIOU HAYLIE. SKIP PLACEBOS 05/30 completed Not Available Not Available Not Available Vitals Date Recorded Systolic And Diastolic Systolic And Diastolic Provider Name and Address Organization Details Last Updated DateTime 11/28/2024 142/80 mm[Hg] 122/80 mm[Hg] JEANNA Saravia Attn: Accounting,[address] [place], [address], [facility] 11/28/2024 11:44:49 Date Recorded Body height Body mass index (BMI) Body weight Respiratory rate Oxygen saturation Oxygen saturation in Arterial blood by Pulse oximetry Heart rate Systolic And Diastolic Provider Name and Address Organization Details Last Updated DateTime 5 157.48 cm 39 kg/m2 91512.1 7 g 20 /min 97 % 97 % 78 /min 148/82 mm[Hg] Bertha Galicia [place] - [facility] 11:32:49 Date Recorded Systolic And Diastolic Provider Name and Address Organization Details Last Updated DateTime 05/13/2024 128/80 mm[Hg] JEANNA Saravia Attn: Accounting,[address] [place], [address], [facility] 05/13/2024 17:15:11 Date Recorded Body height Body mass index (BMI) Body weight Respiratory rate Oxygen saturation Oxygen saturation in Arterial blood by Pulse oximetry Heart rate Systolic And Diastolic Provider Name and Address Organization Details Last Updated DateTime 4 157.48 cm 37.5 kg/m2 75942.5 8 g 20 /min 97 % 97 % 87 /min 132/88 mm[Hg] Bertha Galicia [place] - [facility] 4 16:56:57 Date Recorded Respiratory rate Systolic And Diastolic Provider Name and Address Organization Details Last Updated DateTime 05/30/2025 18 /min 132/80 mm[Hg] JEANNA Saravia Attn: Accounting,[address] [place], [address], [facility] 05/30/2025 11:26:45 Date Recorded Body height Body mass index (BMI) Body weight Heart rate Oxygen saturation Oxygen saturation in Arterial blood by Pulse oximetry Systolic And Diastolic Provider Name and Address Organization Details Last Updated DateTime 5 157.48 cm 37.2 kg/m2 68866.6 9 g 83 /min 99 % 99 % 148/72 mm[Hg] Neda Brooks MA [facility] 5 11:05:21 Date Recorded Systolic And Diastolic Provider Name and Address Organization Details Last Updated DateTime 08/30/2024 130/80 mm[Hg] JEANNA Saravia Attn: Accounting,[address] [facility], [place], [address], [facility] 08/30/2024 11:06:21 Date Recorded Body height Body mass index (BMI) Body weight Respiratory rate Oxygen saturation Oxygen saturation in Arterial blood by Pulse oximetry Heart rate Systolic And Diastolic Provider Name and Address Organization Details Last Updated DateTime 157.48 cm 37.9 kg/m2 77494.6 2 g 20 /min 98 % 98 % 81 /min 118/82 mm[Hg] Bertha Galicia MA [facility] 4 10:55:03 Social History Question Answer Notes LastModified by Organizat ion Details LastModified Time Tobacco Smoking Status Never Smoker Bertha Galicia MA null, [facility] 05/13/2024 16:53:56 Do You Have An Advance [...] Date Of Your Most Recent Tobacco Screening? 05/30/2025 Information not available 05/30/2025 Do You Use Your Seat Belt Or Car Seat Routinely? Yes Information not available 05/03/2024 Do You Have Smoke And Carbon Monoxide Detectors In Your Home? Yes Information not available 05/03/2024 Do You Use Sunscreen Routinely? No Information not available 05/13/2024 Has Tobacco Cessation Counseling Been Provided? Yes Information not available 05/03/2024 On What Date Was Tobacco Cessation Counseling Provided? 05/30/2025 Information not available 05/30/2025 Sex: Female Functional Status Question Answer Note LastModified by Organizat ion Details LastModified Time Do you use any illicit or recreational drugs? No Information not available 05/13/2024 Do you or have you ever used any other forms of tobacco or nicotine? No Information not available 05/13/2024 What is your level of alcohol consumption? 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 Yes Information not available 05/03/2024 What is your exercise level? None Information not available 05/13/2024 Mental Status Question Answer Note LastModified by Organization D etails LastModified Time Do you feel stressed (tense, restless, nervous, or anxious, or unable to sleep at night)? [id number] Information not available 08/30/2024 Family History Relationship Description Onset Age of this Age Resolved Age Notes LastModified by Organization Details LastModified Time Sister Depressive disorder tcarterma Not available 2023 12:01:58 Sister Hypertensive disorder tcarterma Not available 2023 12:02:04 Sister Hypercholest erolemia tcarterma Not available 2023 12:02:13 Brother Depressive disorder tcarterma Not available 2023 12:01:58 Medical History Condition Response High Blood Pressure Y Thyroid Problems Y Depression Y Skin Problems Y Anxiety Disorder Y High Cholesterol Y Headaches Y Gynecological History Statement/Question Response Menses Monthly N Current Control Method Menopause Obstetrics History GPAL:G 0 P 0 0 0 0 Immunizations Vaccine Type Date Status Note Provider Nam e and Address Organization Details Recorded Time Influenza, MDCK, quadrivalent, PF 3 completed [employer], [place] [facility] 08/29/2024 11:00:15 COVID-19, mRNA, LNP-S, PF, 100 mcg/0.5mL dose or 50 mcg/0.25mL dose 2 completed [employer] [facility] 08/29/2024 11:00:15 COVID-19, mRNA, LNP-S, PF, 30 mcg/0.3 mL dose 1 completed Bertha Galicia [place], [place] [facility] 08/29/2024 11:00:15 COVID-19, mRNA, LNP-S, PF, 30 mcg/0.3 mL dose 1 completed Bertha Galicia [place] [facility] 08/29/2024 11:00:15 COVID-19, mRNA, LNP-S, bivalent, PF, 30 mcg/0.3 mL dose 2 completed [employer] [facility] 08/29/2024 11:00:15 COVID-19, mRNA, LNP-S, PF, 50 mcg/0.5 mL 3 completed Bertha Galicia [place] [facility] 08/29/2024 11:00:15 influenza, unspecified formulation 3 completed Bertha Galicia [place] [facility] 08/29/2024 11:00:15 influenza, unspecified formulation 2 completed [employer] [facility] 08/29/2024 11:00:15 influenza, unspecified formulation 8 completed [employer] [facility] 08/29/2024 11:00:15 Td (adult), 2 Lf tetanus toxoid, preservative free, adsorbed 4 completed Bertha Galicia MA [place], [place] [facility] 08/29/2024 11:00:15 Influenza, split virus, trivalent, PF 4 completed Bertha Galicia MA [place], [place] [facility] 11/28/2024 11:30:44 Past Encounters Encounter ID Performer Location Encounter Start Date Encounter Closed Date Diagnosis/Indication Diagnosis SNOMED-CT Code Diagnosis ICD10 Code Diagnosis IMO Codes Diagnosis Note [id number] Macario Cantu MD [facility] - [place] Hidalgo [address] [place] [address] 05/13/2024 16:44:58 05/17/2024 10:25:54 Hypothyroidism 08411652 E03.9 Continue levothyrox ine 100 mcg daily and check updated thyroid function labs. Mixed anxi ety and depressive disorder 753426675 F41.8 Patient is overall stable on Wellbutrin , duloxetine and BuSpar therapy with p.r.n. use of clonazepam Long-term drug therapy 277172467 Z79.899 Routine CBC and CMP are due Skin lesion 87471126 L98 .9 Patient has a dermatolog ist but has not seen them recently. She does have scattered areas of multiple ulcerated type sores and is currently on antibiotic that was sent out for her 7-10 days ago. She is having some improvemen t in lesion healing. Have encouraged the patient to also follow up with her dermatolog ist. Hyperlipidemia 83867011 E78.5 Patient is due for updated fasting lipid panel and refill on fenofibrat e 160 mg daily Migraine 43739028 G43.90 9 Stable on p.r.n. use of sumatripta n 100 mg daily and continue propranolo l 40 mg twice a day for migraine prevention . Postmenopausal state 764 11049 Z78.0 Patient is postmenopa usal and baseline DEXA scan has been ordered. Diabetes m ellitus screening 584290147 Z13.1 Annual A1c screening is due Vitamin B1 2 deficiency (non anemic) 16994740 E53.8 Patient is due for update a vitamin B12 and folate labs and has a history of a deficiency in both levels. Positive s creening for depression on PHQ-9 (Patient Health Questionnaire 9) [id number] 32408 Z13.31 Patient scored a 7 on screening today. She does have medication management in place and is feeling stable with that plan. [id number] Macario Cantu MD [facility] [place] [address] [place] [address] 08/30/2024 10:48:06 08/30/2024 11:35:06 Body mass index 30+ - obesity 046112527 Z68.37 bmi 37.9 Obesity 165670249 E66.9 Obstructiv e sleep apnea syndrome 97851832 G47.33 Patient has not been using her CPAP and 4 years due to missing parts to her machine and now her machine is too old and they can not get parts to it. She needs to get a new updated sleep study. Referral sent Pain of nose 137418409 J 34.89 Patient has had some discomfort in the left side of her nostril. There is no abnormalit y noted but we will empiricall y treat with Bactroban ointment [id number] Macario Cantu MD [facility] [address] [place] [address] 11/28/2024 11:25:47 11/28/2024 12:42:54 Hypothyroidism 37334813 E03.9 Continue levothyrox ine 100 mcg daily and check updated thyroid function labs. Mixed anxi ety and depressive disorder 983023413 F41.8 Patient is overall stable on Wellbutrin , duloxetine and BuSpar therapy with p.r.n. use of clonazepam Hyperlipidemia 82239599 E78.5 Patient is due for updated fasting lipid panel and refill on fenofibrat e 160 mg daily Migraine 42298706 G43.90 9 Stable on p.r.n. use of sumatripta n 100 mg daily and continue propranolo l 40 mg twice a day for migraine prevention . she has had botox now and that has been helpful Vitamin B1 2 deficiency (non anemic) 93331183 E53.8 Patient is due for update a vitamin B12 and folate labs and has a history of a deficiency in both levels. Long-term drug therapy 577998507 Z79.899 Routine CBC and CMP are due Obstructiv e sleep apnea syndrome 30795507 G47.33 patient is back on her new cpap. she is feeling so much better. she cannot sleepy without it. her fatigue is gone during the day. she is using it 6-8 hours per night. she is adherent and very pleased with results. apnea has not been over 2 per hour now. Diabetes roly tyler screening 135184706 Z13.1 Annual A1c screening is due Pain of bi lateral knee joints 6106271470 17769 M25.561 M25.562 At this time we will encourage weight loss which will help take pressure off the knees. This is just started to be problemati c for her at times she can take over-the-c ounter Tylenol for discomfort days we discussed ordering possible x-ray of the knees in the future. Exercise and movement are recommende d at this time Osteoporosis 52885654 M8 1.0 Start generic Actonel 150 mg once monthly for osteoporos is noted on DEXA scan that was acquired [id number] JEANNA Saravia [facility] [place] [address] [place] [address] 05/30/2025 10:55:24 05/30/2025 11:32:20 Positive screening for depression on PHQ-9 (Patient Health Questionnaire 9) 6019610051 01868 Z13.31 7509016487 Patient scored a 8 on screening today. She does have medication management in place and is feeling stable with that plan. Severe obesity 541078982 1 9104 E66.812 E66.01 Z68.37 6987627717 discussed healthy diet, exercise, controllin g carbohydra max and added sugars in the diet Hypothyroidism 62516214 E03.9 Continue levothyrox ine 100 mcg daily and check updated thyroid function labs. Obstructiv e sleep apnea syndrome 08284169 G47.33 patient is back on her new cpap. she is feeling so much better. she cannot sleepy without it. her fatigue is gone during the day. she is using it 6-8 hours per night. she is adherent and very pleased with results. apnea has not been over 2 per hour now. Mixed anxi ety and depressive disorder 805812944 F41.8 Patient is overall stable on Wellbutrin , duloxetine and BuSpar therapy with p.r.n. use of clonazepam Hyperlipidemia 07113346 E78.5 Patient is due for updated fasting lipid panel and refill on fenofibrat e 160 mg daily Migraine 42839624 G43.90 9 Stable on p.r.n. use of sumatripta n 100 mg daily and continue propranolo l 40 mg twice a day for migraine prevention . she has had botox now and that has been helpful Osteoporosis 38259721 M8 1.0 Start generic Actonel 150 mg once monthly for osteoporos is noted on DEXA scan that was acquired. Screening vitamin-D lab due Vitamin B1 2 deficiency (non anemic) 17384769 E53.8 Patient is due for update a vitamin B12 and folate labs and has a history of a deficiency in both levels. Long-term drug therapy 769072857 Z79.899 Routine CBC and CMP are due Adult heal th examination 702320734 Z00.00 0176358 Annual wellness exam completed Prediabetes 726420334 R7 3.03 593664 History of prediabete s A1c range at 6%. She is due for updated labs and fasting insulin with A1c Gastroesop hageal reflux disease without esophagitis 126149929 K21.9 410362 Patient would like omeprazole 20 mg daily prescripti on for cost savings Health Concerns Section Related Observation LastModified by Organization Detai ls LastModified Time None Recorded Concern Status LastModified by Organization Details LastModified Time None Recorded Advance Directives Directive N: Payers Insurance Date Sequence Insurance Name Policy Number Policy Segura Covered Member ID Segura Member ID Guarantor Name 05/27/2025 1 [facility] ON OR AFTER 05/02/21 (MEDICAID REPLACEMENT - HMO) Anna Bland [id number] Anna Bland 05/11/2024 1 [facility] ON OR AFTER 05/02/21 (MEDICAID REPLACEMENT - HMO) Anna Tayon [id number] Anna Tayon Notes Date Note Type Note Provider Name and Address Organization Details Recorded Time 4 text/html HyperlipidemiaReported by PatientPatient has underlying hypertriglyceridemia and takes fenofibrate 160 mg daily. ThyroidReported by PatientPatient has underlying hypothyroidism and is taking levothyroxine 100 mcg daily and is due for updated labs Anxiety/DepressionReported by PatientPatient does have underlying anxiety and depression and takes Wellbutrin XL 300 mg daily, duloxetine 60 mg daily and BuSpar 10 mg twice daily.. She also has clonazepam available for p.r.n. use, of which she does generally dose once daily. Migraine history-patient takes p.r.n. sumatriptan 100 mg and also takes propranolol 40 mg twice daily for migraine/headache management. JEANNA Saravia Attn: Accounting,[address] [facility], [place], [address], [facility] 05/28/2024 17:51:09 4 text/html Obstructive Sleep Apnea F/UReported by PatientHPIFor quality, patient reportsworsening,gasping for air,witnessed apnea,frequent breathing through the mouth, andsnoring with apnea. For severity, patient reportslimits daily activities. For context, patient reportslack of adequate sleep,history of sleep disorder, andrecent weight gain (more than 10 pounds). For associated symptoms, patient reportsmorning headache,awakening at night short of breath,excessive sleepiness during the day, andirritability. For onset/timing, patient reportschronic. For duration, patient reportscontinuous. For location, patient reportsno throat painandno feeling of tightness in throat. For alleviating factors, patient reportsrelief with cpap (but no cpap use in 4 years due to missing parts for machine). For aggravating factors, patient reportsrecent weight gainandworse with excess fatigue. For prior tests, patient reportsthyroid panel,home sleep study, andpsg. For prior treatment, patient reportscpap. For prior opinion, patient reportspcp. JEANNA Saravia Attn: Accounting,[address] [facility], [place], [address], [facility] 08/30/2024 14:01:45 5 text/html HyperlipidemiaReported by PatientPatient has underlying hypertriglyceridemia and takes fenofibrate 160 mg daily. Obstructive Sleep Apnea F/UReported by Patientpatient is back on her new cpap. she is feeling so much better. she cannot sleepy without it. her fatigue is gone during the day. she is using it 6-8 hours per night. she is adherent and very pleased with results. apnea has not been over 2 per hour now. ThyroidReported by PatientPatient has underlying hypothyroidism and is taking levothyroxine 100 mcg daily and is due for updated labs Anxiety/DepressionReported by PatientPatient does have underlying anxiety and depression and takes Wellbutrin XL 300 mg daily, duloxetine 60 mg daily and BuSpar 10 mg twice daily.. She also has clonazepam available for p.r.n. use, of which she does generally dose once daily. Migraine history-patient takes p.r.n. sumatriptan 100 mg and also takes propranolol 40 mg twice daily for migraine/headache management. JEANNA Saravia Attn: Accounting,[address] [place], [address], [place] [facility] 12/05/2024 09:29:49 text/html HyperlipidemiaReported by PatientPatient has underlying hypertriglyceridemia and takes fenofibrate 160 mg daily. Obstructive Sleep Apnea F/UReported by Patientpatient is back on her new cpap. she is feeling so much better. she cannot sleepy without it. her fatigue is gone during the day. she is using it 6-8 hours per night. she is adherent and very pleased with results. apnea has not been over 2 per hour now. ThyroidReported by PatientPatient has underlying hypothyroidism and is taking levothyroxine 100 mcg daily and is due for updated labs Anxiety/DepressionReported by PatientPatient does have underlying anxiety and depression and takes Wellbutrin XL 300 mg daily, duloxetine 60 mg daily and BuSpar 10 mg twice daily.. She also has clonazepam available for p.r.n. use, of which she does generally dose once daily. Reflux/GERDReported by PatientHPIFor quality, patient reportsburning. For severity, patient reportsworsening. For context, patient reportsrelated to any mealbut reportsnon-smoker,no drug/alcohol abuse, andno drug alcohol withdrawal. For aggravating factors, patient reportslying downandworsened by food. For associated symptoms, patient reportsheartburn. For symptoms, patient reportsno difficulty swallowing,no pain swallowing,no postprandial pain, andheartburn. For duration, patient reportspresent for 1-6 months. For onset/timing, patient reportsdailyandoccurs immediately after meals. For alleviating factors, patient reportssitting upandantacids. Migraine history-patient takes p.r.n. sumatriptan 100 mg and also takes propranolol 40 mg twice daily for migraine/headache management. JEANNA Saravia Attn: Accounting,[address] [place], [address], [facility] 05/30/2025 23:23:57 OBGyn Episode No OBEpisode recorded.
--- OUTSIDE RECORDS SUMMARY | 2025-08-19 13:26 | XMS_ITS | Clinical Summary ---
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 This disclosure is being madepursuant to the Care Everywhere program and may not contain all information available regarding this patient. 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 Pulse 72 11/13/2023 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 Temperature 36.3 C (97.4 F) 08/07/2023 1:21 PM CDT Respiratory Rate 22 11/13/2023 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 Oxygen Saturation 99% 11/13/2023 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 Inhaled Oxygen Concentration - - Weight 92.7 kg (204 lb 6.4 oz) 11/13/2023 2:12 P M [employer]UMBER 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 Height 157.5 cm (5' 2) 08/07/2023 1:21 [...] 2024 ZOSTER VACCINE (1 of 2) 2024 DTAP/TDAP/TD VACCINES (2 - Td or Tdap) 07/20/2024 07/20/2014 DEPRESSION SCREENING 11/02/2024 COVID-19 VACCINE (1 - season) 2025 INFLUENZA VACCINE (#1) 2025 2, 08/02/2022, 08/16/2021, [...] patient's age to complete this topic Insurance [facility] [place] [address] [facility] [place] [address] [address] [place] [address] [facility] [place] [address] [facility] [place] [address] [place] [address] [facility] [place] [address] [place] [address] [facility] [address] Care Teams 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
--- OUTSIDE RECORDS SUMMARY | 2025-08-19 13:27 | XMS_ITS | Data Portability ---
Author Organization [place] [facility] [employer], Main Office Address [address] [place] [address] Care Team Providers Care Crab Steamer Name Role Phone JUNE WALTERS Primary Care Provider [phone] JUNE WALTERS Referring Provider [phone] Assessment Encounter Date Assessment Date Assessment LastModified by Organization Details LastModified Time 03/02/2023 03/02/2023 cologuard negative december 2022. Not available 03/02/2023 10:53:41 09/02/2023 09/02/2023 cologuard negative december 2022. Not available 09/02/2023 10:29:14 06/28/2025 06/28/2025 50-year-old patient presents today with bilateral knee pain that has been going on for about 3 months. Left is worse than right. She denies any injury or new activities that may cause her pain. She rates the pain at a 7/10. She states that she has difficulty with straightening or bending the knee after sitting for long periods of time. She has had instances of giving out when using stairs. She is also experiencing new pops that are not painful. 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 For pain she has tried ibuprofen, ice, and Aspercreme which has not helped. Review of systems per patient questionnaire Imaging: X-rays reviewed of bilateral knees show no acute bony abnormality or fracture. Preserved joint spaces. Physical exam: Nonantalgic gait. No edema. Range of motion 0-150 bilaterally. Pain with palpitation along medial joint line bilaterally, worse on left. Negative Lilli's. No pain with deep flexion. Stable ligaments. Sensation intact throughout. We discussed that for her bilateral knee pain we will start with a course of physical therapy to help with range of motion and strengthening. Ibuprofen is not working for her so we will try Celebrex, as meloxicam gave her mouth sores in the past. She states that the left knee is very painful and sometimes keeps her awake at night. We discussed risks and benefits of a cortisone injection. She elects to proceed with that in the left knee. We will see her back in 4-6 weeks after therapy to check her progress. She is in agreement with this plan. Not available 06/28/2025 13:49:26 08/02/2025 08/02/2025 50-year-old patient presents today for follow up of bilateral knee pain. Left is worse than right. She has been working with PT and feels like it is causing her more pain. The celebrex only helps a little. The cortisone injection helped for about 3 weeks before wearing off. She states she is now having catching about 3-4 times a week. She states the right knee is feeling much better. Physical exam: Nonantalgic gait. No edema. Range of motion 0-150 bilaterally. Pain with palpitation along medial joint line on left. Positive Lilli's. Pain with deep flexion. Stable ligaments. Sensation intact throughout. At this point she has tired PT, NSAIDs, and cortisone injection and feels like her pain and mechanical symptoms have gotten worse. We will order an MRI for the left knee. We will see her back once she has results. She is in agreement with this plan. Not available 08/02/2025 17:42:03 Plan of Treatment Reminders Order Date Submit Date Provider Last Modified By Organization Details Last Modified Time Details Appointments None recorded. Lab lipid panel, serum 2022 023 [email or web address] Not available 13:49:43 CMP, serum or plasma 2022 023 [email or web address] Not available 13:49:42 CBC w/ auto diff 2022 023 [email or web address] Not available 13:49:42 vitamin B12, serum 2022 023 [email or web address] Not available 3 13:49:43 folate, serum 2022 023 [email or web address] Not available 13:49:42 TSH + free T4, serum 2022 023 GINNA Not available 14:10:57 vitamin B12, serum 2022 023 [email or web address] [facility], [address] [place], [address], 3 10:30:34 lipid panel, serum 2022 023 [email or web address] [facility], [address] [place], [address], 3 10:30:49 folate, serum 2022 023 [email or web address] [facility], [address] [place], [address], 3 10:31:06 CMP, serum or plasma 2022 023 [email or web address] [facility], [address] [place], [address], 3 10:30:15 CBC w/ auto diff 2022 023 [email or web address] [facility], [address] [place], [address], 3 10:30:26 urinalysis complete, reflex culture 2022 023 [email or web address] [facility], [address] [place], [address], 3 10:30:59 TSH + free T4, serum 2022 023 GINNA [facility], [address] [place], [address], 3 10:32:25 HbA1c (hemoglobi n A1c), blood 2022 023 [email or web address] [facility], [address], [place], [address], 3 10:29:58 Referral physical therapist referral - Please schedule pt for frandy knee. Thanks 2024 025 [facility], [address], [place], [address], 5 14:06:54 neurologic al surgeon referral 2022 023 GINNA Small MD, [address], [address], [place], [address], 3 17:43:01 Procedures injection/ aspiration joint/burs a (PROC) 2024 025 [email or web address] In-Office Order, Internal Use Only DO Not Attach Compendium DO Not Attach Compendium, Do Not Delete/merge, [id number] 11:21:38 Surgeries None recorded. Imaging MRI, knee, w/o contrast - Please give patient disc 2024 025 [facility], [address], [place], [address], 5 09:05:26 MRI, lumbar spine, w/o contrast - approved [id number] 1 09/02/23-2022 023 ARDEN Not available 16:15:19 Medication Orders bupivacain e HCl 0.5 % (5 mg/mL) injection solution 2024 025 [email or web address] [facility] #[id number], [address], [place], [place], [id number], 5 17:04:59 Kenalog 10 mg/mL suspension for injection 2024 025 [email or web address] [id number], [address], [place], [place], [id number], 17:04:59 Celebrex 200 mg capsule 2024 025 [email or web address] [facility], [address], [place], [place], [id number], 12:22:43 Patient TargetsNo targets recorded. Patient InstructionsNo instructions recorded. Reason for Referral Neurological Surgeon Referra l for Compression fracture of lumbar spine Referring Physician: June Walters, Internal Medicine, Encounter Date: 09/02/2023 Physical Therapist Referral for Pain of bilateral knee regions Per PT Please schedule pt for frandy knee. Thanks Referring Physician: Margot Guzman, Orthopedic Surgery, Encounter Date: 06/28/2025 Results Created Date Observation Date Name Description Value Unit Range Abnormal Flag Note LastModifiedBy Organization Detail LastModifiedTime 09/08/2009/08/2023 MRI, lumba r spine , w/o contr ast No observ ation record ed. [email or web address] [address], [place], [address], 09/10/2023 15:56:45 10/05/20 23 10/02/2023 XR, sacru m + coccy x, 2 or more view No observ ation record ed. [email or web address] [facility] [address], [place], [address], 10/08/2023 09:53:50 10/16/2008/30/2023 XR, lumbo sacra l spine , 2 or 3 view No observ ation record ed. [email or web address] Not Available 10/19 18:00:27 06/19/2006/08/2025 XR, knee, 1 or 2 view No observ ation record ed. [email or web address] Not Available 06/02 10:58:46 06/19/20 25 05/13/2025 XR, ankle , 3 or more view No observ ation record ed. [email or web address] Not Available 06/02 10:58:46 06/19/20 25 11/14/2024 bone densi ty No observ ation record ed. [email or web address] Not Available 06/02 10:58:46 Result Notes None recorded. Problems Name Problem SNOMED Code Status Onset Date Resolution Date Notes Provider Name and Address Organization Details Recorded Time Benign essential hypertensi on 9868942 Active Not Available [facility] 3 16:44:48 Deviated nasal septum 410794757 Active Not Available [facility] 3 16:44:48 Folliculit is 61744156 Active Not Available [facility] 3 16:44:48 Nausea present 003328643 Active Not Available [facility] 3 16:44:48 Lateral epicondyli tis 516508511 Active Not Available [facility] 3 16:44:49 Closed fracture distal phalanx, toe 614661647 Active Not Available [facility] 3 16:44:49 Anterior knee pain 924268724 Active Not Available [facility] 3 16:44:49 Headache 28843812 Active Not Available [facility] 3 16:44:49 Pure hyperglyce ridemia 811701507 Active Not Available [facility] 3 16:44:49 Mixed hyperlipid emia 593075049 Active Not Available [facility] 3 16:44:49 Tenderness over maxillary sinus 580974817 Active Not Available [facility] 3 16:44:49 Tenderness over frontal sinus 260889717 Active Not Available [facility] 3 16:44:49 Loss of hair 771835155 Active Not Available [facility] 3 16:44:49 Depressive disorder 45761870 Active Not Available [facility] 3 16:44:50 Major depressive disorder 089815745 Active Not Available [facility] 3 16:44:50 Melanocyti c nevus 327298160 Active Not Available [facility] 3 16:44:50 Hypothyroi dism 37547489 Active Not Available [facility] 3 16:44:50 Temporoman dibular joint disorder 55775392 Active Not Available [facility] 3 16:44:50 Anxiety 98038988 Active Not Available [facility] 3 16:44:50 Upper respirator y infection 14267158 Active Not Available [facility] 3 16:44:51 Carpal tunnel syndrome 03816032 Active Not Available [facility] 3 16:44:51 Vitamin B12 deficiency (non anemic) 16130442 Active Not Available [facility] 3 16:44:51 Acute maxillary sinusitis 76291694 Active Not Available [facility] 3 16:44:51 Atypical facial pain 85819886 Active Not Available [facility] 3 16:44:51 Obstructiv e sleep apnea syndrome 34099144 Active Not Available [facility] 3 16:44:51 Pain in limb 64492351 Active Not Available [facility] 3 16:44:52 Vitamin D deficiency 45325580 Active 2021 Not Available [facility] 3 16:44:49 Candidiasi s of skin 45791980 Active 2021 Not Available [facility] 3 16:44:51 Long-term drug therapy Active 2021 Not Available [facility] 3 16:44:49 Folic acid deficiency 850999127 Active 2021 Not Available [facility] 3 16:44:48 Cobalamin deficiency 675633385 Active 2021 Not Available [facility] 3 16:44:49 Migraine 23906073 Active 2021 Not Available [facility] 3 16:44:50 Overactive urinary bladder 472925258 Active 2021 Not Available [facility] 3 16:44:51 Hyperglyce vincetn 70706223 Active 2021 Not Available [facility] 3 16:44:52 Skin lesion 17374836 Active 2021 Not Available [facility] 3 16:44:52 Cough 74719605 Active 2021 Not Available [facility] 3 16:44:50 Candidiasi s of vagina 07117505 Active 2021 Not Available [facility] 3 16:44:51 Generalize d acute body pains 109171007 Active 2021 Not Available [facility] 3 16:44:48 Sore throat 656061760 Active 2021 Not Available [facility] 3 16:44:49 Viral syndrome 382250548 Active 2021 Not Available [facility] 3 16:44:50 Herpes labialis 3362779 Active 2021 Not Available [facility] 3 16:44:48 Aphthous ulcer of mouth 967889209 Active 2021 Not Available [facility] 3 16:44:50 Compressio n fracture of lumbar spine 004312503 Active 2022 JEANNA Saravia [address], [address], [place], [address] , [facility] 3 10:46:32 Pain in coccyx 91679454 Active 2022 JEANNA Saravia [address], [address], [place], [address] , [facility] 3 13:57:03 Eruption 789199570 Active 2022 JEANNA Saravia [address], [address], [place], [address] , [facility] 3 08:44:41 Pain of bilateral knee regions 3370217746006 02 Active 2024 Estefany Ontiveros CNA null, [place] - [facility] 5 11:01:46 Pain of left knee joint 6106382778801 07 Active 2024 Candy Carmen null, [place] [facility] 5 11:15:19 Pain of right knee joint 5327826846853 00 Active 2024 Candy Carmen hayley, [facility] [employer] 5 11:15:54 Notes:Some problems listed i n Document: #[id number] could not be added to this patient's chart. Please review this document and add these problems to the patient's chart manually as needed. Problem Notes None recorded. Procedures Surgical History Date Name Laterality Status Provider Name and Address Organization Details Recorded Time Ortho - Cortisone Injection completed Margot Guzman NP [address], [address], [place], [address], [facility] [employer] 06/28/2025 13:49:38 Carpal tunnel surgery completed Not Available [facility] 12/31/2022 16:43:41 Biopsy completed Not Available [facility] 11/2022 16:43:41 Cataract Surgery completed Not Available [facility] 12/31/2022 16:43:41 ENT Surgery completed Not Available [facility] 12/31/2022 16:43:41 Imaging Results None recorded. Procedure Notes None recorded. Medical Equipment None Reported. Allergies Allergen ID Allergen Name Allergen Category Reaction Reaction Severity Criticality Documentation Date Start Date Code Code System Note Provider Name and Address Organization Details Recorded Time 04866 meloxicam medicatio n other Not available Not available 12/31/2022 51817 RxNorm kanke r sores Not Available [facility] 3 16:46:12 78582 Avelox medicatio n other Not available Not available 12/31/2022 95627 6 RxNorm swell ing in toung e Not Available [facility] 3 16:46:12 Medications Name Sig Start Date Stop Date Status Note LastModified by Organization Details LastModified Time celecoxib 200 mg capsule TAKE 1 CAPSULE BY MOUTH EVERY DAY active Not Available Not Available No t Available cyclobenz aprine 10 mg tablet 10 MG ORALLY THREE TIMES A DAY NEEDED FOR MUSCLE SPASM FOR 10 DAYS 06/28 completed Not Available Not Available Not Available buspirone 5 mg tablet TAKE 1 [...] completed Not Available Not Available Not Available atorvasta tin 10 mg tablet TAKE 1 TABLET BY MOUTH EVERY DAY active Not Available Not Available No t Available azithromy kyra 250 mg tablet TAKE [...] Not Available Not Available No t Available cephalexi n 250 mg capsule TAKE 1 CAPSULE BY MOUTH EVERY 6 HOURS FOR 10 DAYS 06/28 completed Not Available Not Available Not Available ondansetr on HCl 4 mg tablet Take 2 tablets every 8 hours by oral route for 2 days. active Not Available Not Available No t Available bupivacai ne HCl 0.5 % (5 mg/mL) injection solution Take 20 mg by injectio n route. 2024 active Not Available Not Available Not Avai lable prednison e 20 mg tablet TAKE 3 TABLETS BY MOUTH DAILY FOR 5 DAYS THEN TAKE 2 TABLETS BY MOUTH DAILY FOR 3 DAYS THEN TAKE 1 TABLET BY MOUTH DAILY FOR 3 DAYS 06/28 completed Not Available Not Available Not Available alendrona te 70 mg tablet TAKE 1 TABLET BY MOUTH EVERY WEEK active Not Available Not Available No t Available Tubersol 5 tub. unit/0.1 mL intraderm [...] Available sumatript an 50 mg tablet TAKE 1 TABLET BY MOUTH NEEDED FOR MIGRIANE . MAY REPEAT IN 2 HOURS IF NEEDED. [...] 8 hours by oral route as needed. 06/28 completed Not Available Not Available Not Available sulfameth oxazole 800 mg-trimet hoprim 160 mg tablet TAKE 1 TABLET BY MOUTH TWICE DAILY FOR 7 DAYS 06/28 completed Not Available Not Available Not Available omeprazol e 40 mg capsule,d elayed release 02/19 completed Not Available Not Available Not Available tramadol 50 mg tablet 02/04 completed Not Available Not Available Not Available acetamino phen 500 mg tablet 500 MG ORALLY EVERY 6 HOURS NEEDED FOR PAIN FOR 30 DAYS 06/28 completed Not Available Not Available Not Available triamcino lone acetonide 0.1 % topical cream DAB TOPICALL Y TWO TIMES A DAY 02/04 completed Not Available Not Available Not Available ketorolac 30 mg/mL (1 mL) injection solution Inject 1 mL every 6 hours by intramus cular route. 08/20 completed Internal note: [facility]# [id number] 62-01Ext ernal note: Pt tolerate d it [...] completed Not Available Not Available Not Available Kenalog 10 mg/mL suspensio n for injection Take 10 mg by injectio n route. 2024 active ND: [id number] 4-20 Not Available Not Available Not Available hydrocodo ne 7.5 mg-acetam inophen 325 mg tablet 02/04 completed Not Available Not Available Not Available cyanocoba cha (vit B-12) 1,000 mcg/mL injection solution Inject 2 mL every month by subcutan eous route as needed. 06/[address] [facility] # [id number] 44-00 Not Available Not Available Not Available oseltamiv ir 75 mg capsule TAKE ONE CAPSULE BY MOUTH EVERY 12 HOURS FOR 5 DAYS 02/04 completed Not Available Not Available Not Available triamcino lone acetonide 0.1 % topical ointment 02/04 completed Not Available Not Available Not Available nystatin 100,000 unit/gram topical cream APPLY TOPICALL Y TO THE AFFECTED AREA TWICE DAILY NEEDED active Not Available Not Available No t Available buspirone 10 mg tablet TAKE 1 TABLET BY MOUTH TWICE DAILY active Not Available Not Available No t Available carbamaze pine 100 mg chewable tablet CHEW [...] Available Not Available Not Available omeprazol e 20 mg capsule,d elayed release TAKE 1 CAPSULE BY MOUTH EVERY DAY active Not Available Not Available No t Available gentamici n 0.1 % topical cream [...] 2 % topical ointment APPLY SMALL AMOUNT TOPICALL Y IN EACH NOSTRIL THREE TIMES DAILY 06/28 completed Not Available Not Available Not Available [...] DISSOLVE BY MOUTH EVERY 8 HOURS NEEDED 06/28 completed Not Available Not Available Not Available cefdinir 300 mg capsule TAKE 1 [...] PLEASE SEE ATTACHED FOR DETAILED DIRECTIO NS 06/28 completed Not Available Not Available Not Available amoxicill in 875 mg-potass ium clavulana [...] Not Available Not Available No t Available Augmentin every 12 hours for sinus infectio [...] on Not Available Not Available Not Available drospiren one 3 mg-ethiny l estradiol 0.02 mg tablet TAKE 1 TABLET BY MOUTH EVERY DAY, TAKING CONTINUO USLY 06/28 completed Not Available Not Available Not Available Mucinex [...] completed Not Available Not Available Not Available selenium sulfide 2.5 % lotion WET [...] 3 154.94 cm 97.5 [degF] 37.4 kg/m2 76295.2 9 g 16 /min 99 % 99 % 81 /min 120/78 mm[Hg] Roro Black [facility] [employer] [facility] 10:23:26 Date Recorded Body height Systolic And Diastolic Provider Name and Address Organization Details Last Updated DateTime 06/03/2023 154.94 cm 124/70 mm[Hg] Yadira Alas RN [facility] [employer] [facility] 06/03/2023 10:40:54 Date Recorded Body height Body mass index (BMI) Body weight Provider Name and Address Organization Details Last Updated DateTime 06/28/2025 157.48 cm 37.3 kg/m2 57621.84 g Estefany Ontiveros [facility] [employer] [facility] 06/28/2025 10:55:54 Date Recorded Body height Body mass index (BMI) Body weight Provider Name and Address Organization Details Last Updated DateTime 08/02/2025 157.48 cm 37.3 kg/m2 69889.84 g Melanie Diaz [facility] [employer] [facility] 08/02/2025 10:38:41 Date Recorded Body height Body mass index (BMI) Body weight Body temperature Heart rate Oxygen saturation Oxygen saturation in Arterial blood by Pulse oximetry Systolic And Diastolic Provider Name and Address Organization Details Last Updated DateTime 154.94 cm 36.7 kg/m2 51560.9 2 g 96.8 [degF] 91 /min 98 % 98 % 122/72 mm[Hg] Yadira Alas RN [facility] [employer] [facility] 10:24:54 Social History Question Answer Notes LastModified by Organizat ion Details LastModified Time Tobacco Smoking Status Never Smoker Not Available [facility] 12/31/2022 16:43:39 What Is Your Level Of Caffeine Consumption? Heavy Soda [id number] Information not available 12/31/2022 How Much Tobacco Do You Chew? None [id number] 026 Information not available 12/31/2022 In The 14 Days Before Symptom Onset, Have You Had Close Contact With A Laboratory-confirm ed COVID-19 While That Case Was Ill? No [id number] 026 Information not available 12/31/2022 In The 14 Days Before Symptom Onset, Have You Had Close Contact With A Person Who Is Under Investigation For COVID-19 While That Person Was Ill? No [id number] 026 Information not available 12/31/2022 What Type Of Diet Are You Following? REGULAR [id number] 026 Information not available 12/31/2022 Which Illicit Or Recreational Drugs Have You Used? None [id number] 026 Information not available 12/31/2022 Have There Been Any Changes To Your Family Or Social Situation? No [id number].[id number] 026 Information not available 12/31/2022 Do You Use Insect Repellent Routinely? No MIGRATION.[id number] 026 Information not available 12/31/2022 What Was The Date Of Your Most Recent Tobacco Screening? 06/28/2025 [email or web address] Information not available 06/28/2025 What Is Your Relationship Status? [id number] 026 Information not available 12/31/2022 Do You Use Your Seat Belt Or Car Seat Routinely? Yes [id number] 026 Information not available 12/31/2022 Do You Have Smoke And Carbon Monoxide Detectors In Your Home? Yes MIGRATION.[id number] 026 Information not available 12/31/2022 How Much Tobacco Do You Smoke? No MIGRATION.9387235 026 Information not available 12/31/2022 Do You Use Sunscreen Routinely? Yes MIGRATION.[id number] 026 Information not available 12/31/2022 Have You Recently Traveled Abroad? No MIGRATION.3601147 026 Information not available 12/31/2022 Do You Have Any Dietary Restrictions? No MIGRATION.[id number] 026 Information not available 12/31/2022 Sex: Unknown Functional Status Question Answer Note LastModified by Organizat ion Details LastModified Time Do you use any illicit or recreational drugs? No [id number] Information not available 12/31/2022 Do you or have you ever used any other forms of tobacco or nicotine? No MIGRATION.[id number] 8592 Information not available 12/31/2022 What is your level of alcohol consumption? None MIGRATION.725405 6346 Information not available 12/31/2022 Do you or have you ever used smokeless tobacco? Never used smokeless tobacco MIGRATION.423434 9533 Information not available 12/31/2022 Are you currently employed? 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 Never used electronic cigarettes MIGRATION.239971 6590 Information not available 12/31/2022 What is your exercise level? None MIGRATION.[id number] 9027 Information not available 12/31/2022 Mental Status None recorded. Family History Relationship Description Onset Age of this Age Resolved Age Notes LastModified by Organization Details LastModified Time Mother General health good [id number] Not available 12/31/2022 16:43:42 Father General health good MIGRATION.786 [id number] Not available 12/31/2022 16:43:42 Maternal Grandfather Malignant neoplastic disease [id number].612 [id number] Not available 12/31/2022 16:43:42 Paternal Grandmother Malignant neoplastic disease MIGRATION.704 [id number] Not available 12/31/2022 16:43:42 Maternal Grandfather Heart disease [email or web address] Not available 2024 10:59:43 Maternal Grandfather Hypertensive disorder [email or web address] Not available 2024 11:00:19 Maternal Uncle Cerebrovascu lar accident [email or web address] Not available 10:59:59 Maternal Grandmother Hypertensive disorder [email or web address] Not available 2024 11:00:19 Medical History Condition Response ARTHRITIS Y HEADACHES/MIGRAINES Y SLEEP APNEA Y SKIN PROBLEMS Y HYPERTENSION Y HIGH CHOLESTEROL / HYPERLIPIDEMIA Y HYPERTHYROIDISM Y EYE PROBLEMS Y OBESITY Y ANXIETY DISORDER Y BRONCHITIS Y OSTEOPOROSIS Y URINARY/BLADDER/KIDNEY PROBLEMS Y DEPRESSION (INCLUDING POST ) Y BACK / NECK PROBLEMS Y Gynecological History Statement/Question Response Abnormal Pap [...] virus, quadrivalent, PF 6 completed Not Available [facility] 12/31/2022 16:46:09 Tdap 4 completed Not Available [facility] 12/31/2022 16:46:09 influenza, unspecified formulation 3 completed Not Available [facility] 12/31/2022 16:46:09 Influenza, split virus, quadrivalent, PF 2 completed Not Available [facility] 12/31/2022 16:46:10 Influenza, split virus, quadrivalent, PF 1 completed Not Available [facility] 12/31/2022 16:46:10 Influenza, split virus, quadrivalent, PF 0 completed Not Available [facility] 12/31/2022 16:46:10 Influenza, split virus, quadrivalent, PF 9 completed Not Available [facility] 12/31/2022 16:46:10 Influenza, split virus, quadrivalent, PF 8 completed Not Available [facility] 12/31/2022 16:46:10 Influenza, split virus, quadrivalent, PF 5 completed Not Available [facility] 12/31/2022 16:46:10 TST-PPD intradermal 5 completed Not Available [facility] 12/31/2022 16:46:10 Past Encounters Encounter ID Performer Location Encounter Start Date Encounter Closed Date Diagnosis/Indication Diagnosis SNOMED-CT Code Diagnosis ICD10 Code Diagnosis IMO Codes Diagnosis Note [id number] JEANNA Saravia [facility] [place] [address] [place] [address] 01/17/2021 00:00:00 01/17/2021 17:56:[id number] [facility] Internal [facility] [place] [address] [place] [address] 02/04/2021 00:00:00 02/27/2021 20:01:10 [id number] JEANNA Saravia [facility] [place] [address] [place] [address] 08/16/2021 00:00:00 09/01/2021 10:06:43 [id number] JEANNA Saravia [facility] [place] [address] [place] [address] 09/24/2021 00:00:00 09/28/2021 01:09:47 [id number] [facility] Internal [facility] [place] [address] [place] [address] 02/20/2022 00:00:00 03/01/2022 22:29:[id number] [facility] Internal [facility] [place] [address] [place] [address] 03/20/2022 00:00:00 03/20/2022 17:59:[id number] [facility] Internal [facility] [place] [address] [place] [address] 08/15/2022 00:00:00 08/31/2022 01:04:[id number] [facility] Internal [facility] [place] [address] [place] [address] 10/21/2022 00:00:00 10/29/2022 12:37:[id number] [facility] Internal [facility] [place] [address] [place] [address] 03/02/2023 10:13:07 03/02/2023 10:56:41 Benign essential hypertension 8599159 I10 stable on propranolo l 40mg bid. Mixed hyperlipidemia 267 717030 E78.2 due for fasting lipids Hypothyroidism 21020365 E03.9 stable on supplement but due for labs Vitamin D deficiency 347 54895 E55.9 stable on supplement . continue. Vitamin B1 2 deficiency (non anemic) 20204889 E53.8 due for b12 labs. on supplement . Major depr essive disorder 119742263 F32.9 stable on wellbutrin XL 300mg daily Obstructiv e sleep apnea syndrome 14217759 G47.33 stable on cpap Migraine 06641239 G43.90 9 stable. no acute changes. Overactive urinary bladder 443204761 N32.81 stable on vesicare 5mg daily. Folic acid deficiency 19 6621389 E53.8 stable on OTC supplement . Long-term drug therapy 464412457 Z79.899 routine CMP, CBC and UA due Diabetes m ellitus screening 437404248 Z13.1 screening A1c due. [id number] JEANNA Saravia [facility] Internal [facility] [place] [address] [place] [address] 06/03/2023 10:37:45 06/03/2023 10:41:[id number] [facility] Internal [facility] [place] [address] [place] [address] 09/02/2023 10:18:37 09/02/2023 10:50:27 Adult health examination 933295681 Z00.01 Wellness exam is completed with f/u testing ordered. Benign ess ential hypertension 3169496 I10 stable on propranolo l 40mg bid. Mixed hyperlipidemia 267 665515 E78.2 on fenofibrat e therapy. due for fasting labs in Oct. Hypothyroidism 18716470 E03.9 stable on supplement but due for labs in Oct. Vitamin D deficiency 347 10447 E55.9 stable on supplement . continue. Vitamin B1 2 deficiency (non anemic) 16715532 E53.8 due for b12 lab in Oct.. on supplement . Major depr essive disorder 867103971 F32.9 stable on wellbutrin XL 300mg daily Obstructiv e sleep apnea syndrome 09639093 G47.33 stable on cpap Migraine 29899023 G43.90 9 stable. no acute changes. Overactive urinary bladder 869452801 N32.81 stable on vesicare 5mg daily. Folic acid deficiency 19 9610522 E53.8 stable on OTC supplement . Long-term drug therapy 294526037 Z79.899 routine CMP, CBC due in oct Compressio n fracture of lumbar spine 316951375 M48.56XD pt fell recently , slipped on spilled milk in her kitchen, hit tailbone. Severe pain prompted ER visit. Xray of Lumbar spine shows age indetermin ate L2 compressio n fracture. She has appt with Dr. Small in [place]. Referral placed and MRI of Lumbar spine ordered with her on copy for appt. [id number] Arun Valencia MD [facility] [place] [address] [place] [address] 06/28/2025 10:26:10 06/28/2025 11:32:02 Pain of bilateral knee regions 7606404971 07232 M25.561 M25.562 49329310 [id number] Arun Valencia MD [facility] [place] [address] [place] [address] 08/02/2025 10:27:50 08/02/2025 11:26:17 Pain of left knee joint 9493796322 87282 M25.562 696635 Pain of ri ght knee joint 1166309460 32150 M25.561 [id number] Health Concerns Section Related Observation LastModified by Organization Detai ls LastModified Time None Recorded Concern Status LastModified by Organization Details LastModified Time None Recorded Advance Directives Directive None Recorded Payers Insurance Date Sequence Insurance Name Policy Number Policy Segura Covered Member ID Segura Member ID Guarantor Name 07/31/2025 1 [facility] ON OR AFTER 05/02/21 (MEDICAID REPLACEMENT - HMO) Anna D Tayon [id number] Anna D Tayon 08/02/2025 1 [facility] ON OR AFTER 05/02/21 (MEDICAID REPLACEMENT - HMO) Anna D Tayon [id number] Anna D Tayon 08/02/2025 1 [place] [facility] Anna D Tayon [id number] Anna D Tayon 07/31/2025 2 [facility] (MEDICAID REPLACEMENT - HMO) Anna D Tayon [id number] Anna D Tayon 08/02/2025 [facility] ON OR AFTER 05/02/21 (MEDICAID REPLACEMENT - HMO) Anna D Tayon [id number] Anna D Tayon Notes Date Note Type Note Provider Name and Address Organization Details Recorded Time 3 text/html HypertensionReported by PatientHPIFor associated symptoms, patient reportsfatiguebut reportsno shortness of breath,no palpitations,no decline in exercise capacity, andno snoring. For duration, patient reportshas noted for years. For onset/timing, patient reportsbetter. For alleviating factors, patient reportsmedication. Obstructive Sleep Apnea F/UReported by PatientHPIFor quality, patient reportsloud snoringbut reportsno gasping for air,no witnessed apnea,no hyponasal speech, andno frequent breathing through the mouth. For location, patient reportsthroat painanddryness of mouthbut reportsno enlarged tonsils,no nasal passage blockage,no throat pain,no feeling of tightness in throat, andno chest congestion. For onset/timing, patient reportschronic. For duration, patient reportscontinuous. For severity, patient reportsdoes not limit daily activities,no frequent sore throats resulting in excess missed days from school / work per year,no difficulty getting going in the morning, andno awakening in the middle of the night with sore throat. For context, patient reportsno lack of adequate sleep,no shift work,not currently taking medication to help sleep,no recent weight gain,no recent upper respiratory infection,no recent sick contacts,not worse with environmental exposure,not worse with seasonal allergen exposure,no hypertension, andnormal sleep hours. For alleviating factors, patient reportsrelief with cpap (but it broke and hasnt gotten a new one.). For aggravating factors, patient reportsnot worse during an upper respiratory infection (a cold)andnot worse when allergies are active. For associated symptoms, patient reportsno morning headache,no awakening at night short of breath,no sweating heavily at night,no excessive sleepiness during the day,no suddenly falling asleep during the day,no napping,no impaired work performace, andno nasal congestion. Anxiety/DepressionReporte d by PatientHPIFor quality, patient reportssymptoms worse in the evening. For severity, patient reportsinterference with household activitiesbut reportsdenies suicidal ideations,able to maintain relationships, anddoes not interfere with activities of daily living. For context, patient reportsmajor life stressors. For duration, patient reportssymptoms lasting over 2 weeks. For onset/timing, patient reportsstill present. For associated symptoms, patient reportsdenies homicidal ideations,no significant weight gain,no significant weight loss,no visual/auditory hallucinations,no delusions, andno shortness of breath. For modifying factors, (rx). HyperlipidemiaReported by PatientHPIFor duration, patient reportschronic. For compliance, patient reportsnoncompliant with dietanddoes not exercisebut reportscompliant. For risk factors, patient reportshypertension. For control, patient reportsusually well controlled. For complications, patient reportsno coronary artery disease,no peripheral artery disease, andno cardiovascular disease. JEANNA Saravia [address] [facility] [facility] [address], [place], [address], [place] [facility] [employer] [facility] [employer] 03/31/2023 19:44:31 3 text/html HypertensionReported by PatientHPIFor associated symptoms, patient reportsfatiguebut reportsno shortness of breath,no palpitations,no decline in exercise capacity, andno snoring. For duration, patient reportshas noted for years. For onset/timing, patient reportsbetter. For alleviating factors, patient reportsmedication. Obstructive Sleep Apnea F/UReported by PatientHPIFor quality, patient reportsloud snoringbut reportsno gasping for air,no witnessed apnea,no hyponasal speech, andno frequent breathing through the mouth. For location, patient reportsthroat painanddryness of mouthbut reportsno enlarged tonsils,no nasal passage blockage,no throat pain,no feeling of tightness in throat, andno chest congestion. For onset/timing, patient reportschronic. For duration, patient reportscontinuous. For severity, patient reportsdoes not limit daily activities,no frequent sore throats resulting in excess missed days from school / work per year,no difficulty getting going in the morning, andno awakening in the middle of the night with sore throat. For context, patient reportsno lack of adequate sleep,no shift work,not currently taking medication to help sleep,no recent weight gain,no recent upper respiratory infection,no recent sick contacts,not worse with environmental exposure,not worse with seasonal allergen exposure,no hypertension, andnormal sleep hours. For alleviating factors, patient reportsrelief with cpap (but it broke and hasnt gotten a new one.). For aggravating factors, patient reportsnot worse during an upper respiratory infection (a cold)andnot worse when allergies are active. For associated symptoms, patient reportsno morning headache,no awakening at night short of breath,no sweating heavily at night,no excessive sleepiness during the day,no suddenly falling asleep during the day,no napping,no impaired work performace, andno nasal congestion. Anxiety/DepressionReporte d by PatientHPIFor quality, patient reportssymptoms worse in the evening. For severity, patient reportsinterference with household activitiesbut reportsdenies suicidal ideations,able to maintain relationships, anddoes not interfere with activities of daily living. For context, patient reportsmajor life stressors. For duration, patient reportssymptoms lasting over 2 weeks. For onset/timing, patient reportsstill present. For associated symptoms, patient reportsdenies homicidal ideations,no significant weight gain,no significant weight loss,no visual/auditory hallucinations,no delusions, andno shortness of breath. For modifying factors, (rx). HyperlipidemiaReported by PatientHPIFor duration, patient reportschronic. For compliance, patient reportsnoncompliant with dietanddoes not exercisebut reportscompliant. For risk factors, patient reportshypertension. For control, patient reportsusually well controlled. For complications, patient reportsno coronary artery disease,no peripheral artery disease, andno cardiovascular disease. wellnesspt requesting neuro referral - see pt case 08/31 JEANNA Saravia [address] [facility] [facility] [address], [place], [address], [facility] [employer] 09/02/2023 10:54:32 OBGyn Episode No OBEpisode recorded.
--- OUTSIDE RECORDS SUMMARY | 2025-08-19 13:27 | XMS_ITS | Clinical Summary ---
Author Organization [facility] Address [address] [place] [address] Care Team Providers Care Supervisor [employer]ating Name Role Phone Tigre Sy MD Primary Care Provider [phone] Allergies Active Allergy Reactions Criticality Noted Date Comments Meloxicam Moxifloxacin Medications selenium sulfide 2.5 % lotion WET HAIR AND LATHER INTO SCALP UP TO ONCE DAILY. 0 Active Gianvi, 28, 3-0.02 mg per tablet 0 Active buPROPion XL (WELLBUTRIN XL) 300 mg 24 hr tabletIndications: Generalized anxiety disorder,Mild episode of recurrent major depressive disorder Take 1 tablet (300 mg total) by mouth every morning 90 tablet 1 0 Active clonazePAM (KlonoPIN) 0.5 mg tabletIndications: Generalized anxiety disorder Take 1 tablet (0.5 mg total) by mouth daily 90 tablet 1 0 Active fenofibrate (TRIGLIDE) 160 mg tabletIndications: Hyperlipidemia, unspecified hyperlipidemia type Take 1 tablet (160 mg total) by mouth daily 90 tablet 1 0 Active levothyroxine (SYNTHROID) 100 mcg tabletIndications: Acquired hypothyroidism Take 1 tablet (100 mcg total) by mouth daily 90 tablet 1 0 Active propranoloL (INDERAL) 40 mg tabletIndications: Chronic migraine without aura without status migrainosus, not intractable Take 1 tablet (40 mg total) by mouth 2 (two) times a day 180 tablet [address] (CYMBALTA) 60 mg capsuleIndications :Generalized anxiety disorder,Mild episode of recurrent major depressive disorder TAKE 1 CAPSULE BY MOUTH EVERY DAY 90 capsule 1 Active onabotulinumtoxin A (Botox) 100 unit recon soln Inject 155 Units into the muscle as instructed every 3 (three) months 4 Active oxyBUTYnin (DITROPAN) 5 mg tablet Take 0.5 tablets (2.5 mg total) by mouth 2 (two) times a day 4 Active fluconazole (DIFLUCAN) 150 mg tabletIndications: Intractable chronic migraine without aura and without status migrainosus Take 1 tablet (150 mg total) by mouth every other day 4 Active SUMAtriptan (IMITREX) 50 mg tabletIndications: Intractable chronic migraine without aura and without status migrainosus Take 1 tablet (50 mg total) by mouth as needed for migraine Can repeat in 2 hours if needed. Maximum of 2 tablets in 24 hours. 9 tablet 11 4 Active alendronate (FOSAMAX) 70 mg tablet Take 1 tablet (70 mg total) by mouth once a week 5 Active busPIRone (BUSPAR) 10 mg tablet Take 1 tablet (10 mg total) by mouth 2 (two) times a day 5 Active atorvastatin (LIPITOR) 10 mg tablet Take 1 tablet (10 mg total) by mouth daily Active butalbital-acetami nophen-caffeine (ESGIC) 50-325-40 mg per tabletIndications: Intractable chronic migraine without aura and without status migrainosus Take 1 tablet by mouth every 6 (six) hours as needed for headaches 8 tablet 5 5 Active Active Problems Problem Noted Date Diagnosed Date Gastroesophageal reflux disease without esophagi tis 05/30/2025 Prediabetes 05/30/2025 Arthralgia of both knees 12/04/2024 Osteoporosis 12/04/2024 Obesity 08/30/2024 Migraine 05/13/2024 Upper respiratory infection 02/17/2024 Pain in the coccyx 10/01/2023 Compression fracture of lumbar vertebra 09/02/20 Aphthous ulcer of mouth 10/23/2022 Herpes labialis 10/23/2022 Nonspecific syndrome suggestive of viral illness 10/20/2022 Sore throat 10/20/2022 Viral syndrome 10/20/2022 Candidiasis of vagina 07/14/2022 Cough 02/24/2022 [...] Encounters Date Type Department Care Team Description 06/20/2025 10:00 AM CDT Procedure visit [facility] [address] [address] Katelynn Hurd MD Intractable chronic migraine without aura and without status migrainosus (Primary Dx) from Last 3 Months Surgical History Surgery [...] on file Legal Sex Female 6:22 AM [employer] Gender Identity Female 02/06/2020 9:55 AM CDT Sexual Orientation Straight 02/06/2020 9: 55 AM CDT Obstetrics History Last Filed Vital Signs Vital Sign Reading Time Taken Comments Blood Pressure 118/82 06/20/2025 10:13 AM CDT Pulse 78 06/20/2025 10:13 AM CDT Temperature 36.7 C (98.1 F) 10/21/2013 12:15 PM [employer] Respiratory Rate 18 09/02/2024 11:37 AM CDT Oxygen Saturation 97% 06/20/2025 10:13 AM CDT Inhaled Oxygen Concentration - - Weight 92.5 kg (204 lb) 06/20/2025 10:13 AM CDT Height 157.5 cm (5' 2.01) 06/20/2025 10:13 AM C DT Body Mass Index 37.3 06/20/2025 10:13 AM CDT Plan of Treatment Health Maintenance Due Date Last Done Comments Breast Cancer Screening-Mammogram 1974 Cervical Cancer Screening 1974 Colon Cancer Screening-Colonoscopy 1974 Hepatitis C Screening 1974 Hepatitis B Screening 1992 Depression Screening 02/05/2021 02/06/2020, 02/06/20 20 Regular Well Visit/Exam 18-64 02/05/2021 02/06/2020 Zoster Vaccine (1 of 2) 2024 DTaP/Tdap/Td Vaccine (3 - Td or Tdap) 07/20/2024 07/20/2014, 07/20/2014 Covid-19 Vaccine ( season) 2025 08/02/2023, 07/18/2022, 11/27/2021, Additional history exists Influenza Vaccine (#1) 2025 , 08/02/2023, 08/15/2022, Additional history exists Pneumococcal vaccine <65 Aged Out No longer eligible based on patient's age to complete this topic Procedures Procedure Name Priority Date/Time Associated Diagnosis Comments BOTOX INJECTION Routine 06/20/2025 10:00 AM CDT Intractable chronic migraine without aura and without status migrainosus from Last 3 Months Results * Botox Injection (06/20/2025 10:00 AM CDT) Narrative Michelle Toro - 06/20/2025 10:00 AM CDT Michelle Toro 06/21/2025 10:59 AM Botox Injection Performed by: Katelynn Hurd MD Authorized by: Katelynn Hurd MD [place] Protocol: Procedure Details - Botox Injection: Procedure Details: See Botox flow sheet for details on injection sites and amounts. us Katelynn Hurd MD IN CLINIC/BEDSIDE ORDERAB LES Final Result from Last 3 Months Insurance [facility] Care Teams Supervisor Hot Dip Plating Relationship Specialty Start Date End Date Tigre Sy MD PCP - General Family Medicine 02/09/20
== END 2025-08-19 13:22 | disposition home or self-care (01) ==
PROVIDERS: PCP Physician Assistant
DX: M25.462 Effusion, left knee (principal); M71.22 Synovial cyst of popliteal space [Baker], left knee
CPT/HCPCS: 73721